=== PATIENT | female | born 1995 | race Two or more races ===

== ENCOUNTER 2018-06-11 02:41 | Inpatient (IN) | payer OTHER ==
[2018-06-11] MEDS ORDERED: DEXTROSE 5%-LACTATED RINGERS 1,000 ML IV SCH (03:20)
[2018-06-11] MEDS: DEXTROSE 5%-LACTATED RINGERS 1,000 ML IV SCH ×2 (03:30→09:17)
[2018-06-11 04:14] LABS: BASO % 0.2 % (0-2.0); EOS % 1.5 % (0-4.5); HEMATOCRIT 37.8 % (32.4-45.2); HEMOGLOBIN 12.9 GM/dL (10.7-15.3); LYMPH % 14.1 % (8-40); MCH 27.9 pg (25.7-33.7); MONO % 7.9 % (3.8-10.2); NEUT % 76.3 % (42.8-82.8); RBC 4.61 M/mm3 (3.60-5.2); RDW 15.4 % (11.6-15.6); WHITE BLOOD COUNT 9.7 K/mm3 (4.0-10.0)
[2018-06-11 04:26] LABS: INR 0.98 (0.83-1.09); PROTHROMBIN TIME (PATIENT) 11.6 SEC (9.7-13.0)
[2018-06-11 04:29] LABS: ACTIVATED PTT 27.5 SECONDS (25.2-36.5)
[2018-06-11 04:39] LABS: ANION GAP 7 MMOL/L (8-16); BLOOD UREA NITROGEN 7 mg/dL (7-18); CALCIUM 8.5 mg/dL (8.5-10.1); CHLORIDE 109 mmol/L (98-107); CO2 23 mmol/L (21-32); CREATININE 0.5 mg/dL (0.55-1.3); GLUCOSE,RANDOM 69 mg/dL (74-106); POTASSIUM 4.1 mmol/L (3.5-5.1); SODIUM 140 mmol/L (136-145)
--- NOTE | 2018-06-11 05:31 | HP ---
Past Medical History - Primary Care Physician PCP:: Violet Prince - Admission Chief Complaint: 22 yrs 39.6/7 wks admitted due to c/o bleeding like period at home & onset LP at 2.00 AM. pt was assessed for labor on 06/09/18 sent home History of Present Illness: pnc at , carrier clinic care transferred from [facility] wt gain 43 lbs panel : 10/22/17 APos, Hbsag neg, Rubella immune, rpr nr, Hiv neg, Hgb , pap nilm , gc/ct neg PPD neg, h/h 12.3/37.4, plt 231 h/o BV pos , treated with vaginal cream ( ? metrogel gel ) 02/26/18 1 hr gtt 137. Early sono 10/29/17 7.4 wks Edc assigned 06/13/18 subsequent sono 01/14/18 18.5 wks 01/28/18 20.6 wks, ant placenta, anatomy sono wnl pt was seen by MFM at [facility] twice . last sono done on 05/15/2018 05/15/18 36 weeks cutures gc/ct neg GBS neg , Hiv neg h/h 11.5/39.2. 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 Weeks Gestation by Dates: 39.4 ...EDC by Dates: 06/15/18 ...EDC by Sono: 06/13/18 (39.6 weks ) Infectious Disease: Yes: STD's (h/o chlamydia 2014). No: AIDS, HIV, Tuberculosis Psych: No: Addictions, Anxiety, Bipolar, Depression, Panic, Psychosis, Schizophrenia, Other Endocrine: No: Diabetes Mellitus, Hyperthyroidism, Hypothyroidism - Past Surgical History Past Surgical History: Yes: None Hx Myomectomy: No Hx Transabdominal Cerclage: No - Alcohol/Substance Use Hx Alcohol Use: No History of Substance Use: reports: None Home Medications - Allergies Allergies/Adverse Reactions: Allergies Allergy/AdvReac Type Severity Reaction Status Date / Time No Known Allergies Allergy Verified 06/09/18 08:37 - Home Medications Home Medications: Ambulatory Orders Ferrous Sulfate [Iron] 325 mg PO DAILY 05/02/18 Vitamins (Sjr) - 1 tab PO DAILY 05/02/18 Physical Exam - Maternity Vital Signs: Vital Signs Temperature 97.6 F 06/11/18 04:00 Pulse Rate 68 06/11/18 04:00 Respiratory Rate 20 06/11/18 04:00 Blood Pressure 139/77 06/11/18 04:00 O2 Sat by Pulse Oximetry (%) Constitutional: Yes: Well Nourished, Obese Eyes: Yes: WNL HENT: Yes: WNL, Normocephalic Neck: Yes: WNL Cardiovascular: Yes: WNL, Regular Rate and Rhythm Breast(s): Yes: WNL - Abdominal Exam/OB Fundal Height: 40 Number of Fetuses: Single Presentation: Vertex Contractions: Yes Regularity: Irregular (6-7 min) Intensity: Mild/Mod Monitor Mode: External Heart Rate (range): 130 Heart Rate Location: [facility] Category: I Accelerations: Uniform Decelerations: None - Vaginal Exam/OB Vaginal Bleediing: Bloody Show Dilatation (cm): FT Effacement (%): 60 Amniotic Membrane Status: Intact Presentation: Vertex/Position Station: -3 - Physical Exam Musculoskeletal: Yes: WNL Extremities: Yes: WNL. No: Calf Tenderness Edema: LLE: 1+, RLE: 1+ Integumentary: Yes: Tattoos Deep Tendon Reflex Grade: Normal +2 ...Motor Strength: WNL Psychiatric: Yes: WNL, Alert, Oriented - Labs Lab Results: CBC, BMP 06/11/18 04:00 Plt count 99 06/11/18 04:00 Laboratory Tests 06/11/18 06/11/18 06/11/18 04:00 04:00 04:00 Platelet Estimate Adequate Platelet Comment No clumping noted Retic Count PT with INR 11.60 INR 0.98 PTT (Actin FS) 27.5 Uric Acid GGT AST ALT Blood Type A POSITIVE Antibody Screen Negative 06/11/18 06/11/18 06/11/18 06:54 06:54 07:09 Platelet Estimate Platelet Comment Retic Count 1.33 PT with INR INR PTT (Actin FS) Uric Acid 6.9 GGT 24 AST 21 ALT 14 Blood Type A POSITIVE Antibody Screen Problem List - Problems (1) 39 weeks gestation of Code(s): Z3A.39 - 39 WEEKS GESTATION OF (2) Prolonged latent phase of labor Code(s): O62.0 - PRIMARY INADEQUATE CONTRACTIONS (3) Gestational thrombocytopenia without hemorrhage in third trimester Code(s): O99.113 - OTH DIS OF BLD/BLD-FORM ORG/IMMUN MECHNSM COMP PREG, 3RD TRI ; D69.6 - THROMBOCYTOPENIA, UNSPECIFIED Assessment/Plan 22 yrs , 39.6 weeks in early labor , presented with bleeding , hence admitted early . gbs neg , gestational thrombocytopenia Plan may ambulate will do HEELP Work Up pitocin augmentation prn trial vaginal delivery 800AM HELLP work up is negative except LOW Plt count uc are irregular, FHR cat-1 i handed over the labor management of the patient to supervisor electronics testing Dr Carreno
[2018-06-11 05:32] VITALS: BMI 30.6
[2018-06-11 07:09] LABS: MEAN PLT VOLUME 12.3 fl (7.5-11.1); PLATELET ESTIMATE ADEQUATE
[2018-06-11 07:11] LABS: PLATELET COUNT 96 K/MM3 (134-434)
[2018-06-11 07:45] LABS: RETICULOCYTES 1.33 % (0.5-1.5)
[2018-06-11 07:50] LABS: URIC ACID 6.9 mg/dL (2.6-7.2)
[2018-06-11] MEDS ORDERED: DINOPROSTONE 10 MG VAGINAL SUPPOSITORY VG ONE (10:37)
[2018-06-11] MEDS ORDERED: BUTORPHANOL TARTRATE 2 MG/ML VIAL IVPUSH PRN (10:40)
--- NOTE | 2018-06-11 10:40 | PN ---
Progress Note (short form) - Note Progress Note: Patient with Thrombocytopenia admitted for vaginal bleeding. Upon admission she was 1cm dilated and 80% effaced. Cervidil was placed at 8:05am Reevaluate in 12 hours or before if indicated.
[2018-06-11] MEDS ORDERED: PROMETHAZINE HCL 25 MG/1 ML VIAL IVPUSH PRN (10:41)
[2018-06-11] MEDS ORDERED: BUTORPHANOL TARTRATE 1 MG/ML VIAL ONE ×2 (11:40)
[2018-06-11] MEDS ORDERED: PROMETHAZINE HCL 25 MG/1 ML VIAL ONE (11:40)
--- NOTE | 2018-06-11 13:26 | PN ---
Progress Note (short form) - Note Progress Note: Status post stadol. Coople episode of decelerations after stadol. Cervidil removed. Few minutes later membrane was ruptured and internal monitor was placed. VE : /-1 Continue close monitoring
[2018-06-11] MEDS ORDERED: OXYTOCIN 30 UNITS in 0.9% NS 30 UNIT/500 ML INFUS.BAG IVPB SCH (14:45)
[2018-06-11 15:33] LABS: URINE APPEARANCE CLEAR; URINE BILIRUBIN NEGATIVE (<2.0 mg/dL); URINE COLOR LTYELLOW; URINE GLUCOSE (UA) NEGATIVE (NEGATIVE); URINE KETONE NEGATIVE (NEGATIVE); URINE LEUK ESTERASE NEGATIVE (NEGATIVE); URINE NITRITE NEGATIVE (NEGATIVE); URINE PROTEIN NEGATIVE (NEGATIVE); URINE UROBILINOGEN NEGATIVE mg/dL (0.2-1.0)
[2018-06-11] MEDS ORDERED: ELECTROLYTE-148 SOLN 1,000 ML IV SCH (15:45)
--- NOTE | 2018-06-11 16:14 | PN ---
Progress Note, Labor Vaginal Exam #3 Heart Rate (range): Cat I Dilatation: 4 Effacement (%): 100 Amniotic Membrane Status: Ruptured Presentation: Vertex/Position Station: -1 Remarks: No cervical knife changer two hours. Cervix is swollen. On pitocin for over 1 hour now Will reassess in 2 hours, if no significant change, will discuss option of C/S Moon Hung MD
[2018-06-11] MEDS ORDERED: CITRIC ACID/SODIUM CITRATE 30 ML UNIT-DOSE CUP PO ONE (16:42)
--- NOTE | 2018-06-11 16:53 | PN ---
Progress Note, Labor Vaginal Exam #4 Labor Exam Time: 16:44 Heart Rate (range): Cat I Dilatation: 4 Effacement (%): 100 Amniotic Membrane Status: Ruptured Presentation: Vertex/Position Station: -1 Remarks: Patient screaming out in pain. States she wants a and does not want to continue with labor secondary to pain. Had planned to do this delivery without pain medications. Has received stadol for relief. Cervix re-examined. Continued cervical swelling noted with caput. Pt requesting for delivery. Risk of procedure including bleeding, infection and injury to bladder/ bowel/tubes/ovaries discussed. Given the cervical exam, low suspicion that even with epidural anesthesia that there will be much progression given the cervical swelling and caput. Moon Hung MD
[2018-06-11] MEDS ORDERED: morphine SULFATE/Preservative Free 0.5 MG/ML (1cc Syringe) ONE (17:14)
[2018-06-11] MEDS ORDERED: ceFAZolin SODIUM 1 GM VIAL ONE (17:14)
[2018-06-11] MEDS ORDERED: morphine SULFATE/Preservative Free 0.5 MG/ML (1cc Syringe) SPIN ONE (17:25)
[2018-06-11] MEDS ORDERED: OXYTOCIN 10 UNITS/ML VIAL ONE (17:34)
[2018-06-11] MEDS ORDERED: ACETAMINOPHEN 325 MG TABLET (FP) PO PRN ×2 (18:03→18:12)
[2018-06-11] MEDS ORDERED: IBUPROFEN 600 MG TABLET (FP) PO PRN (18:03)
[2018-06-11] MEDS ORDERED: ONDANSETRON 4 MG/2 ML VIAL IVPUSH PRN (18:03)
[2018-06-11] MEDS ORDERED: METHYLERGONOVINE MALEATE 0.2 MG/1 ML AMP IM PRN (18:12)
[2018-06-11] MEDS ORDERED: SENNOSIDES/DOCUSATE COMBO (SENNA PLUS) TABLET (UD) PO PRN (18:12)
[2018-06-11] MEDS ORDERED: IBUPROFEN 800 MG/8 ML IJ IVPB PRN (18:12)
--- NOTE | 2018-06-11 18:15 | OP ---
Operative Note - Note: Operative Date: 06/11/18 Pre-Operative Diagnosis: Arrest of First Stage of Labor Operation: PLTCS Findings: VMI, GEORGI, no nuchal or meconium. Apgars 9/9. Weight pending. Normal tubes and ovaries Post-Operative Diagnosis: Same as Pre-op Surgeon: Rebecca Hung Insulation Installer: Joselito Muñoz Anesthesia: Spinal Estimated Blood Loss (mls): 500 Operative Report Dictated: Yes
--- NOTE | 2018-06-11 18:58 | OP ---
DATE OF OPERATION: 06/11/2018 PREOPERATIVE DIAGNOSIS: A 39-week , arrest of first stage of labor. POSTOPERATIVE DIAGNOSIS: A 39-week , arrest of first stage of labor. PROCEDURE: Primary low transverse section. ANESTHESIA: Spinal. SURGEON: Rebecca Hung M.D. EMAIL MARKETING EXECUTIVE: Gilmer Elias ESTIMATED BLOOD LOSS: 500. INTRAVENOUS FLUIDS: Per anesthesia records. URINE OUTPUT: 400 mL of clear urine at the end of the procedure. FINDINGS: Viable male , GEORGI position, no nuchal, no meconium, Apgars 9 and 9, weight pending, normal tubes and ovaries bilaterally. COMPLICATIONS: None. CONDITION: Stable to recovery. DESCRIPTION OF PROCEDURE: After the appropriate consents were signed, the patient was taken to the operating room where spinal anesthesia was administered. She was placed in the supine position. Atkinson catheter was inserted into the bladder. The abdomen was prepped and draped in the normal sterile fashion. Timeout was performed confirming correct patient and procedure. A Pfannenstiel skin incision was then made in the skin, carried through to the underlying layer until the fascia was nicked in the midline. Fascia was then extended laterally with the Bailon scissors. The inferior aspect of the fascia was grasped with Reza clamps, tented upwards, and the rectus muscles dissected off bluntly with the Bailon scissors. Attention was then paid to the superior aspect which was taken down in a similar fashion. The rectus muscles were in the midline. The peritoneum was entered bluntly. Bladder blade was inserted. The vesiculo uterine serosal reflection was grasped, nicked in the midline, and extended laterally with the Metzenbaum scissors. A bladder flap was then created digitally. The bladder blade was then reinserted. The uterus was then incised in a low transverse fashion with the scalpel, clear amniotic fluid was noted. 's head was delivered without difficulty as were the shoulders and remaining parts. The cord was clamped and cut, the infant was handed off to the waiting pediatric staff. The placenta was then delivered manually. The uterus was cleared of all clot and debris. The uterus was closed with a 1-0 Vicryl in 2 layers with good hemostasis. Gutters were cleared of all clot and debris. The muscle was reapproximated with 2-0 chromic. The fascia was closed with 0 Vicryl. Skin was closed with 3-0 Vicryl. Sponge , lap, needle count was correct x3. Patient did receive Ancef at the start of the procedure. REBECCA HUNG MD [id number] MTDD
[2018-06-11] MEDS ORDERED: IBUPROFEN 800 MG/8 ML IJ IVPB ONE (19:41)
[2018-06-11] MEDS: OXYTOCIN 20 UNITS in 0.9% NS 20 UNIT/1,000 ML INFUS.BAG IV SCH (22:00)
[2018-06-12] MEDS: OXYTOCIN 20 UNITS in 0.9% NS 20 UNIT/1,000 ML INFUS.BAG IV SCH ×2 (05:51→14:00)
--- NOTE | 2018-06-12 06:11 | PN ---
Post Progress Note - Subjective Subjective: Pain controlled with meds. No N/V. Has been Type of Delivery: Primary C/S Vital Signs: Vital Signs Temperature 100.0 F H 06/12/18 05:15 Pulse Rate 89 06/12/18 05:15 Respiratory Rate 18 06/12/18 05:56 Blood Pressure 123/69 06/12/18 05:15 O2 Sat by Pulse Oximetry (%) 100 06/11/18 18:45 Uterus: Yes: Fundus Firm, Fundus below umbilicus Incision: Yes: Dressing dry and intact Abdomen/GI: Yes: Abdomen soft Lochia: Yes: Rubra Lochia, amount: Small Extremities: Yes: Calves non-tender - Labs Labs: CBC WBC 9.7 K/mm3 (4.0-10.0) 06/11/18 04:00 RBC 4.61 M/mm3 (3.60-5.2) 06/11/18 04:00 Hgb 12.9 GM/dL (10.7-15.3) 06/11/18 04:00 Hct 37.8 % (32.4-45.2) 06/11/18 04:00 MCV 82.0 fl (80-96) 06/11/18 04:00 MCH 27.9 pg (25.7-33.7) 06/11/18 04:00 MCHC 34.0 g/dl (32.0-36.0) 06/11/18 04:00 RDW 15.4 % (11.6-15.6) 06/11/18 04:00 Plt Count 99 K/MM3 (134-434) L 06/11/18 06:54 MPV 12.3 fl (7.5-11.1) H 06/11/18 04:00 Absolute Neuts (auto) 7.4 K/mm3 (1.5-8.0) 06/11/18 04:00 Neutrophils % 76.3 % (42.8-82.8) 06/11/18 04:00 Lymphocytes % 14.1 % (8-40) 06/11/18 04:00 Monocytes % 7.9 % (3.8-10.2) 06/11/18 04:00 Eosinophils % 1.5 % (0-4.5) 06/11/18 04:00 Basophils % 0.2 % (0-2.0) 06/11/18 04:00 Nucleated RBC % 0 % (0-0) 06/11/18 04:00 Platelet Estimate Adequate 06/11/18 04:00 Platelet Comment No clumping noted 06/11/18 04:00 Retic Count 1.33 % (0.5-1.5) 06/11/18 06:54 Haptoglobin 109 mg/dL (34-200) 06/11/18 07:09 Problem List - Problems (1) S/P Code(s): Z98.891 - HISTORY OF UTERINE SCAR FROM PREVIOUS SURGERY Assessment/Plan 22yo s/p PLTCS, POD#1 Routine care F/U AM labs OOB, ambulate D/C rosa Anticipate d/c to home by POD#4 Moon Hung MD
[2018-06-12 08:24] LABS: BASO % 0.3 % (0-2.0); EOS % 0.1 % (0-4.5); HEMATOCRIT 32.1 % (32.4-45.2); HEMOGLOBIN 10.9 GM/dL (10.7-15.3); LYMPH % 9.2 % (8-40); MCH 27.5 pg (25.7-33.7); MCHC 33.8 g/dl (32.0-36.0); MEAN CELL VOLUME 81.5 fl (80-96); MEAN PLT VOLUME 11.1 fl (7.5-11.1); MONO % 6.7 % (3.8-10.2); NEUT % 83.7 % (42.8-82.8); PLATELET COUNT 88 K/MM3 (134-434); RBC 3.94 M/mm3 (3.60-5.2); RDW 15.5 % (11.6-15.6); WHITE BLOOD COUNT 13.4 K/mm3 (4.0-10.0)
--- NOTE | 2018-06-12 08:32 | PN ---
Progress Note (short form) - Note Progress Note: Post op day#1.S/P C Section under spinal anesthesia with duramorph uneventful.Patient stable and c/o smoe pain for which she is on medication.No any anesthesia related problem.Patient DC from the anesthesia care.
[2018-06-12] MEDS: PRENATAL VITAMINS W/ FOLIC ACID TABLET (FP) PO SCH (10:07)
[2018-06-12] MEDS: oxyCODONE HCL 5 MG TABLET PO PRN (12:17)
[2018-06-12] MEDS: IBUPROFEN 600 MG TABLET (FP) PO PRN (12:18)
[2018-06-12] MEDS: SIMETHICONE 80 MG TAB.CHEW (FP) PO PRN (12:19)
[2018-06-12] MEDS ORDERED: OXYTOCIN 20 UNITS in 0.9% NS 20 UNIT/1,000 ML INFUS.BAG IV ONE (13:52)
[2018-06-12] MEDS ORDERED: BISACODYL 10 MG SUPP.RECT RC PRN (18:12)
[2018-06-13] MEDS: oxyCODONE HCL 5 MG TABLET PO PRN ×2 (03:50→16:15)
[2018-06-13] MEDS: SIMETHICONE 80 MG TAB.CHEW (FP) PO PRN ×2 (03:51→16:17)
[2018-06-13] MEDS: IBUPROFEN 600 MG TABLET (FP) PO PRN ×2 (03:51→16:16)
--- NOTE | 2018-06-13 07:44 | PN ---
Progress Note (short form) - Note Progress Note: pod 2 doing wel, has mild cramps CBC, BMP 06/12/18 07:30 06/11/18 04:00 Last Vital Signs Temp Pulse Resp BP Pulse Ox 98.2 F 71 20 136/80 100 06/13/18 06:00 06/12/18 21:00 06/12/18 21:00 06/12/18 21:00 06/11/18 18:45 abdomen soft, no distension , no cva incision dry, clean no calf tenderness plan ambulate , cbc in am
[2018-06-13] MEDS ORDERED: FLU VACCINE QUAD 60 MCG/0.5 ML (MDV 18-19) IM ONE (10:00)
[2018-06-13] MEDS ORDERED: DIPHTH,PERTUSS(ACELL),TET 0.5 ML DISP.SYRIN IM ONE (10:00)
[2018-06-13] MEDS: PRENATAL VITAMINS W/ FOLIC ACID TABLET (FP) PO SCH (10:09)
[2018-06-14] MEDS: IBUPROFEN 600 MG TABLET (FP) PO PRN (05:52)
[2018-06-14] MEDS: oxyCODONE HCL 5 MG TABLET PO PRN (05:52)
--- NOTE | 2018-06-14 08:22 | PN ---
Post Progress Note Type of Delivery: Primary C/S Vital Signs: Vital Signs Temperature 97.6 F 06/13/18 21:44 Pulse Rate 74 06/13/18 21:44 Respiratory Rate 18 06/13/18 21:44 Blood Pressure 130/85 06/13/18 21:44 O2 Sat by Pulse Oximetry (%) 100 06/11/18 18:45 Uterus: Yes: Fundus above umbilicus Incision: Yes: Dressing dry and intact Abdomen/GI: Yes: Abdomen soft, Tolerating PO Lochia: Yes: Rubra Lochia, amount: Small Extremities: Yes: Calves non-tender Activity: Ambulating - Labs Labs: CBC WBC 13.4 K/mm3 (4.0-10.0) H 06/12/18 07:30 RBC 3.94 M/mm3 (3.60-5.2) 06/12/18 07:30 Hgb 10.9 GM/dL (10.7-15.3) 06/12/18 07:30 Hct 32.1 % (32.4-45.2) L D 06/12/18 07:30 MCV 81.5 fl (80-96) 06/12/18 07:30 MCH 27.5 pg (25.7-33.7) 06/12/18 07:30 MCHC 33.8 g/dl (32.0-36.0) 06/12/18 07:30 RDW 15.5 % (11.6-15.6) 06/12/18 07:30 Plt Count 88 K/MM3 (134-434) L 06/12/18 07:30 MPV 11.1 fl (7.5-11.1) 06/12/18 07:30 Absolute Neuts (auto) 11.2 K/mm3 (1.5-8.0) H 06/12/18 07:30 Neutrophils % 83.7 % (42.8-82.8) H 06/12/18 07:30 Lymphocytes % 9.2 % (8-40) D 06/12/18 07:30 Monocytes % 6.7 % (3.8-10.2) 06/12/18 07:30 Eosinophils % 0.1 % (0-4.5) D 06/12/18 07:30 Basophils % 0.3 % (0-2.0) 06/12/18 07:30 Nucleated RBC % 0 % (0-0) 06/12/18 07:30 Platelet Estimate Adequate 06/11/18 04:00 Platelet Comment No clumping noted 06/11/18 04:00 Retic Count 1.33 % (0.5-1.5) 06/11/18 06:54 Haptoglobin 109 mg/dL (34-200) 06/11/18 07:09 Problem List - Problems (1) S/P Code(s): Z98.891 - HISTORY OF UTERINE SCAR FROM PREVIOUS SURGERY Assessment/Plan 22yo s/p PLTCS, POD#3 Routine care Labs reviewed OOB, ambulate Anticipate d/c to home by POD#4 Moon Hung MD
--- NOTE | 2018-06-14 09:22 | DS ---
Physical Examination Vital Signs: Vital Signs Temperature 97.6 F 06/13/18 21:44 Pulse Rate 74 06/13/18 21:44 Respiratory Rate 18 06/13/18 21:44 Blood Pressure 130/85 06/13/18 21:44 O2 Sat by Pulse Oximetry (%) 100 06/11/18 18:45 Constitutional: Yes: Well Nourished, No Distress, Calm Eyes: Yes: WNL, Conjunctiva Clear, EOM Intact HENT: Yes: WNL, Atraumatic, Normocephalic Neck: Yes: WNL, Supple, Trachea Midline Cardiovascular: Yes: WNL, Regular Rate and Rhythm Respiratory: Yes: WNL, Regular, CTA Bilaterally Gastrointestinal: Yes: WNL, Normal Bowel Sounds Musculoskeletal: Yes: WNL Extremities: Yes: WNL Edema: No Integumentary: Yes: WNL Neurological: Yes: WNL, Alert, Oriented ...Motor Strength: WNL Psychiatric: Yes: WNL Labs: CBC, BMP 06/12/18 07:30 06/11/18 04:00 Discharge Summary Reason For Visit: LABOR Current Active Problems 39 weeks gestation of (Acute) Gestational thrombocytopenia without hemorrhage in third trimester (Acute) Prolonged latent phase of labor (Acute) S/P (Acute) Procedures: Principal: PLTCS Hospital Course: Patient presented with vaginal bleeding and was subsequently induced The heart tracing had abnormal changes with cervidil administration and it was discontinued With AROM and pitocin she only progressed to 4cm with caput. She underwent PLTCS She met all milestones She was discharged home in stable condition on POD#3 Rebecca Hung MD Condition: Stable - Instructions Diet, Activity, Other Instructions: Regular Diet Referrals: Rebecca Hung MD [Staff Physician] - Disposition: HOME - Home Medications Comprehensive Discharge Medication List: Ambulatory Orders Ferrous Sulfate [Iron] 325 mg PO DAILY 05/02/18 Vitamins (Sjr) - 1 tab PO DAILY 05/02/18
[2018-06-14] MEDS: PRENATAL VITAMINS W/ FOLIC ACID TABLET (FP) PO SCH (09:26)
[2018-06-14 10:22] LABS: BASO % 0.3 % (0-2.0); EOS % 1.3 % (0-4.5); HEMATOCRIT 34.2 % (32.4-45.2); HEMOGLOBIN 11.4 GM/dL (10.7-15.3); LYMPH % 9.5 % (8-40); MCH 27.5 pg (25.7-33.7); MCHC 33.4 g/dl (32.0-36.0); MEAN CELL VOLUME 82.5 fl (80-96); MEAN PLT VOLUME 10.2 fl (7.5-11.1); NEUT % 83.9 % (42.8-82.8); PLATELET COUNT 113 K/MM3 (134-434); RBC 4.14 M/mm3 (3.60-5.2); RDW 15.4 % (11.6-15.6); WHITE BLOOD COUNT 9.9 K/mm3 (4.0-10.0)
[2018-06-14 11:10] VITALS: BP 139/84; PULSE 84; TEMP 98.1
--- NOTE | 2018-06-23 16:08 | PATH ---
Surgical Pathology Report Patient Name: BETY VALDOVINOS [facility]. Rec. #: [id number] /Age/Gender: 1995 (Age: 22) / F Account: [id number] Location: [facility] OBS/CONSTRUCTION DIRECTOR Taken: 06/11/2018 Received: 06/12/2018 Reported: 06/23/2018 Physicians: Rebecca Carreno M.D. Specimen(s) Received PLACENTA Clinical History Final Diagnosis PLACENTA, SECTION: 468 G THIRD TRIMESTER PLACENTA WITH TRIVASCULAR UMBILICAL CORD AND MILD ACUTE CHORIOAMNIONITIS. Electronically Signed Nori Zapien M.D. Gross Description The specimen is received fresh labeled placenta and is a 468 gram, 16.5 x 14.5 x 3.2 cm. placenta with attached membranes and umbilical cord. The attached membranes are watts, translucent with focal opacities and insert marginally. The umbilical cord measures 41 cm. in length and averages 1.3 cm. in diameter. The cord inserts eccentrically, 4.5 cm. to the nearest margin. No true knots or strictures are identified. Cut surface of the umbilical cord reveals 3 vessels. The surface is garay-blue with minimal fibrin deposition and appropriate caliber vessels. The maternal surface is red-brown with focal defects. Sectioning reveals red-brown, spongy parenchyma. No lesions are identified. City Manager sections are submitted in three cassettes as follows: 1- membrane rolls and umbilical cord; 2-3- full thickness sections of placenta. 06/20/2018 [facility]06/20/2018
== END 2018-06-14 15:30 | disposition home or self-care (01) | DRG 540 ==
LOC: JDEL 02:41 → JLDR 03:20 → J3W 20:06
PROVIDERS: ADMIT Obstetrics & Gynecology; ATTEND Obstetrics & Gynecology
PROC: 10D00Z1 Extraction of Products of Conception, Low, Open Approach (ICD-10-PCS; principal; 2018-06-11)
DX: O62.1 Secondary uterine inertia (principal); O99.12 Other diseases of the blood and blood-forming organs and certain disorders involving the immune mechanism complicating childbirth; D69.6 Thrombocytopenia, unspecified; Z3A.39 39 weeks gestation of pregnancy; Z37.0 Single live birth; O62.0 Primary inadequate contractions
CPT/HCPCS: 36415; 80048; 81003; 82977; 83010; 84450; 84460; 84550; 85025; 85032; 85044; 85610; 85730; 86593; 86850; 86900; 86901; 88307-TC; 90686; 90715; G0008

== ENCOUNTER 2019-04-22 11:49 | Emergency (ER) | payer OTHER ==
[2019-04-22 12:00] VITALS: BP 116/48; PULSE 78; TEMP 97.9; BMI 23.0
[2019-04-22 13:58] LABS: PH,URINE 6.5 (5.0-8.0); URINE APPEARANCE CLEAR; URINE BILIRUBIN NEGATIVE (NEGATIVE); URINE COLOR YELLOW; URINE GLUCOSE (UA) NEGATIVE (NEGATIVE); URINE KETONE 2+ (NEGATIVE); URINE LEUK ESTERASE NEGATIVE (NEGATIVE); URINE NITRITE NEGATIVE (NEGATIVE); URINE PROTEIN NEGATIVE (NEGATIVE)
--- NOTE | 2019-04-22 14:20 | PDOC ---
History of Present Illness - General Chief Complaint: Pain Stated Complaint: PAIN Time Seen by Provider: 04/22/19 12:31 History Source: Patient Exam Limitations: No Limitations Past History - Travel Traveled outside of the country in the last 30 days: No Close contact w/someone who was outside of country & ill: No - Past Medical History Allergies/Adverse Reactions: Allergies Allergy/AdvReac Type Severity Reaction Status Date / Time No Known Allergies Allergy Verified 06/09/18 08:37 Home Medications: Ambulatory Orders Ferrous Sulfate [Iron] 325 mg PO DAILY 05/02/18 Vitamins (Sjr) - 1 tab PO DAILY 05/02/18 Ibuprofen 600 mg PO Q6H PRN #30 tablet 06/14/18 Oxycodone HCl/Acetaminophen [Percocet 5-325 mg Tablet -] 1 - 2 tab PO Q6H PRN # 15 tab MDD 4 06/14/18 Asthma: No Cancer: No Cardiac Disorders: No COPD: No Diabetes: No HTN: No Seizures: No Thyroid Disease: No - Immunization History Immunization Up to Date: Yes - Psycho Social/Smoking Cessation Hx Smoking History: Never smoked Have you smoked in the past 12 months: No Information on smoking cessation initiated: No Hx Alcohol Use: No Drug/Substance Use Hx: No Hx Substance Use Treatment: No Review of Systems - Review of Systems Able to Perform ROS?: Yes Comments:: 04/22/19 14:16 CONSTITUTIONAL: Absent: fever, chills, diaphoresis, generalized weakness, malaise, loss of appetite HEENT: Absent: rhinorrhea, nasal congestion, throat pain, throat swelling, difficulty swallowing, mouth swelling, ear pain, eye pain, visual Changes CARDIOVASCULAR: Absent: chest pain, loss of consciousness, palpitations, irregular heart rate, peripheral edema RESPIRATORY: Absent: cough, shortness of breath, dyspnea with exertion, orthopnea, wheezing, stridor, hemoptysis GASTROINTESTINAL: Present: Lower abdominal pain absent: abdominal distension, nausea, vomiting, diarrhea, constipation, melena, hematochezia GENITOURINARY: Present: Spotting absent: dysuria, frequency, urgency, hesitancy, hematuria, flank pain, genital pain MUSCULOSKELETAL: Absent: myalgia, arthralgia, joint swelling SKIN: Absent: rash, itching, pallor HEMATOLOGIC/IMMUNOLOGIC: Absent: easy bleeding, easy bruising, lymphadenopathy, frequent infections ENDOCRINE: Absent: unexplained weight gain, unexplained weight loss, heat intolerance, cold intolerance NEUROLOGIC: Absent: headache, focal weakness or paresthesias, dizziness, unsteady gait, seizure, mental status changes, bladder or bowel incontinence PSYCHIATRIC: Absent: anxiety, depression, suicidal or homicidal ideation, hallucinations. Is the patient limited Welsh proficient: No *Physical Exam - Vital Signs Last Vital Signs Temp Pulse Resp BP Pulse Ox 97.9 F 78 17 116/48 L 100 04/22/19 11:56 04/22/19 11:56 04/22/19 11:56 04/22/19 11:56 04/22/19 11:56 - Physical Exam 04/22/19 14:17 GENERAL: Well developed, well nourished. Awake and alert. No acute distress. HEENT: Normocephalic, atraumatic. PERRLA, EOMI. No conjunctival pallor. Sclera are non- icteric. Moist mucous membranes. Oropharynx is clear. NECK: Supple. Full ROM. No JVD. Carotid pulses 2+ and symmetric, without bruits. No thyromegaly. No lymphadenopathy. ABDOMINAL: Well-healed scar, no keloid or secondary signs of infection noted. Tenderness to the left adnexal area on palpation. Soft. Non-distended. No rebound or guarding. No organomegaly. Normoactive bowel sounds. MUSCULOSKELETAL Normal range of motion at all joints. No bony deformities or tenderness. No CVA tenderness. EXTREMITIES: No cyanosis. No clubbing. No edema. No calf tenderness. SKIN: Warm and dry. Normal capillary refill. No rashes. No jaundice. NEUROLOGICAL: Alert, awake, appropriate. Cranial nerves 2-12 intact. No deficits to light touch and temperature in face, upper extremities and lower extremities. No motor deficits in the in face, upper extremities and lower extremities. Normoreflexic in the upper and lower extremities. Normal speech. Toes are down- going bilaterally. Gait is normal without ataxia. PSYCHIATRIC: Cooperative. Good eye contact. Appropriate mood and affect. ED Treatment Course - ADDITIONAL ORDERS Additional order review: Laboratory Results 04/22/19 04/22/19 13:30 13:30 Urine Color Yellow Urine Appearance Clear Urine pH 6.5 Ur Specific [place] 1.015 Urine Protein Negative Urine Glucose (UA) Negative Urine Ketones 2+ H Urine Blood Negative Urine Nitrite Negative Urine Bilirubin Negative Urine Urobilinogen 1.0 Ur Leukocyte Esterase Negative Urine HCG, Qual Positive - RADIOLOGY Radiology Studies Ordered: Category Date Time Status KUB (KID UR & BLAD) [RAD] Stat Radiology 04/22/19 13:24 Ordered TRANSVAGINAL US PREG [US] Stat Ultrasound 04/22/19 14:03 Ordered Medical Decision Making - Medical Decision Making 04/22/19 14:17 The patient is a 23-year-old female G2, P1 who presents to the ER today for vaginal spotting. She also states she has pain over her scar for the past three weeks. She states her last menstrual cycle was 03/22/2019. She is unsure if she is at this time. She notes that the pain is worse when she sneezes or coughs. She states that the vaginal spotting has been light and she notes that the the blood is bright red. Denies fevers, chills, nausea, vomiting, diarrhea and urinary symptoms. A/P: Lower abdominal pain On exam there is a well-healed scar with no evidence of secondary infection. Tenderness palpation of the left aspect of the scar in the left adnexal region. Urine is positive. Patient defers pelvic exam as she is also getting a ultrasound she does not want to be examined twice. Patient transferred to [facility] for rule out ectopic given bleeding and . Type and screen, CBC, and transvaginal ultrasound ordered. Signout given to ABDIRIZAK Chu and Charge nurse Michelle Discharge - Discharge Information Problems reviewed: Yes Clinical Impression/Diagnosis: Vaginal bleeding affecting early - Follow up/Referral - Patient Discharge Instructions - Post Discharge Activity
[2019-04-22 15:35] LABS: BASO % 0.3 % (0-2.0); EOS % 1.4 % (0-4.5); HEMATOCRIT 38.1 % (32.4-45.2); HEMOGLOBIN 12.8 GM/dL (10.7-15.3); LYMPH % 17.5 % (8-40); MCH 27.7 pg (25.7-33.7); MCHC 33.7 g/dl (32.0-36.0); MEAN CELL VOLUME 82.2 fl (80-96); MEAN PLT VOLUME 9.7 fl (7.5-11.1); MONO % 5.6 % (3.8-10.2); NEUT % 75.2 % (42.8-82.8); PLATELET COUNT 242 K/MM3 (134-434); RBC 4.64 M/mm3 (3.60-5.2); RDW 13.9 % (11.6-15.6); WHITE BLOOD COUNT 10.9 K/mm3 (4.0-10.0)
--- NOTE | 2019-04-22 16:34 | PDOC ---
*Physical Exam - Vital Signs Last Vital Signs Temp Pulse Resp BP Pulse Ox 97.9 F 78 17 116/48 L 100 04/22/19 11:56 04/22/19 11:56 04/22/19 11:56 04/22/19 11:56 04/22/19 11:56 ED Treatment Course - LABORATORY CBC & Chemistry Diagram: 04/22/19 15:10 - ADDITIONAL ORDERS Additional order review: Laboratory Results 04/22/19 04/22/19 04/22/19 15:10 13:30 13:30 Beta HCG, Quant 7823.8 Urine Color Yellow Urine Appearance Clear Urine pH 6.5 Ur Specific [place] 1.015 Urine Protein Negative Urine Glucose (UA) Negative Urine Ketones 2+ H Urine Blood Negative Urine Nitrite Negative Urine Bilirubin Negative Urine Urobilinogen 1.0 Ur Leukocyte Esterase Negative Urine HCG, Qual Positive 04/22/19 15:10 RBC 4.64 MCV 82.2 MCHC 33.7 RDW 13.9 MPV 9.7 Neutrophils % 75.2 Lymphocytes % 17.5 D Monocytes % 5.6 Eosinophils % 1.4 Basophils % 0.3 Medical Decision Making - Medical Decision Making Patient resting in NAD Ultrasound shows evidence of IUP at 5 weeks 4 days, pole not yet visible Pending T&S results 04/22/19 16:33 T&S - patient is RH positive Patient has CHEF HEAD, Dr. Hung, with whom she can follow-up with 04/22/19 16:39 Discharge - Discharge Information Problems reviewed: Yes Clinical Impression/Diagnosis: Threatened Condition: Stable Disposition: HOME - Admission No - Additional Discharge Information Prescription Drug Monitoring Program (I-STOP) results: I-STOP not reviewed - Follow up/Referral - Patient Discharge Instructions Patient Printed Discharge Instructions: DI for Threatened Additional Instructions: Thank you for choosing [facility]. It was a pleasure taking care of you. Please continue follow-up with your CHEF HEAD regarding your Please start taking vitamins Recommend rest (no heavy work, no intercourse) until resolution of bleeding Return to the Emergency Department if your symptoms worsen or persist or other concerning symptoms. - Post Discharge Activity
== END 2019-04-22 16:30 | disposition home or self-care (01) ==
LOC: JERFT 11:49 → JER 11:49
DX: O26.891 Other specified pregnancy related conditions, first trimester (principal); Z3A.00 Weeks of gestation of pregnancy not specified; N93.9 Abnormal uterine and vaginal bleeding, unspecified
CPT/HCPCS: 36415; 76817-TC; 81003; 84702; 84703; 85025; 86850; 86900; 86901; 87086; 99282-25

== ENCOUNTER 2020-01-26 01:41 | Emergency (ER) | payer OTHER ==
--- NOTE | 2020-01-26 02:03 | PDOC ---
History of Present Illness - General Chief Complaint: Vaginal Bleeding Stated Complaint: VAGINAL BLEEDING, 16WKS Time Seen by Provider: 01/26/20 02:01 History Source: Patient Exam Limitations: No Limitations - History of Present Illness Initial Comments: 01/26/20 02:01 HPI: This is a 24 y/o female who is 16.5 weeks presenting to the ED due to multiple episodes of gross hematuria that began 30 minutes prior to arrival. Per the patient, she first noticed the blood when wiping, but it quickly progressed to gross hematuria filling the toilet. She also endorses increased urgency, frequency, incomplete bladder emptying, and suprapubic pressure. She reports that last night she began feeling suprapubic pain radiating to her left flank. She denies fever/chills, vaginal bleeding or discharge, abdominal cramping, chest pain, palpitations, or lightheadedness. Thrombocytopenia in previous , negative workup for HELLP. Had an emergency due to heart rate deceleration. Rh + ROS: GENERAL/CONSTITUTIONAL: No fever/chills. No weakness. CARDIOVASCULAR: No chest pain or shortness of breath. No palpitations. RESPIRATORY: No cough, wheezing, or hemoptysis. GASTROINTESTINAL: No nausea, vomiting, diarrhea or constipation. GENITOURINARY: Yes dysuria, increased frequency, incomplete bladder emptying, hematuria, suprapubic abdominal pain MUSCULOSKELETAL: No joint or muscle swelling or pain. No neck or back pain. NEUROLOGIC: No headache, loss of consciousness, or change in strength/sensation. ENDOCRINE: No increased thirst. No abnormal weight change. HEMATOLOGIC/LYMPHATIC: Thrombocytopenia in previous ALLERGIC/IMMUNOLOGIC: No hives or skin allergy. PMH: Denied PSx: Emergency Social Hx: Denied etoh, tobacco, drug use Meds: Denied Allergies: KNDA PE: GENERAL: Awake, alert, and fully oriented, in no acute distress. Patient is non- toxic. Conversing normally. HEAD: No signs of trauma EYES: PERRLA, EOMI ENT: Oropharynx clear without exudates. Moist mucosa NECK: Normal ROM, supple LUNGS: Breath sounds equal, clear to auscultation bilaterally HEART: Regular rate and rhythm, normal S1 and S2 ABDOMEN: Tender to palpation in suprapubic area. No CVA tenderness EXTREMITIES: Normal range of motion, no edema. NEUROLOGICAL: Cranial nerves II through XII grossly intact. Normal speech, normal gait SKIN: Warm, Dry, normal turgor, no rashes or lesions noted. PELVIC: Cervical os is closed. No blood in vaginal vault. Physiologic discharge. MDM: 01/26/20 02:29 This is a 24 y/o female who is 16.5 weeks presenting to the ED due to multiple episodes of gross hematuria that began 30 minutes prior to arrival. ddx: hemorrhagic cystitis vs pyelonephritis vs vaginal bleeding - Patient is afebrile, no CVA tenderness on exam. Less concerned for pyelonephritis - Patient is non-toxic in appearance - Pelvic exam with no blood in the vaginal vault Preg U/S CBC CMP Coags UA Pelvic exam 01/26/20 02:56 U/S: FINDINGS: Single live intrauterine gestation with measurements corresponding to 16 weeks and 6 days. heart rate is 163 bpm. motion is detected. Cervical length 4.2 cm. Cervix is closed. Posterior placenta. No previa. - Reassuring U/S Labs notable for: WBC 16.7K UA: 3+ blood, 3+ leuk esterase, WBC 2958, Bacteria 287 - Will give 1g ceftriaxone in the ED - Spoke with Dr. Fenton who is diagnostic medical sonographer for Dr. Mejia. He agreed that she could be managed as an outpatient. Advised d/c with Keflex 500mg B.i.d and follow up in the morning with his office. - Patient stable for d/c with follow up and return precautions. Past History - Medical History Allergies/Adverse Reactions: Allergies Allergy/AdvReac Type Severity Reaction Status Date / Time No Known Allergies Allergy Verified 01/26/20 03:13 Home Medications: Ambulatory Orders Cephalexin [Keflex] 500 mg PO BID 7 Days #14 capsule 01/26/20 Asthma: No Cancer: No Cardiac Disorders: No COPD: No Diabetes: No HTN: No Seizures: No Thyroid Disease: No - Immunization History Immunization Up to Date: Yes - Psycho-Social/Smoking History Smoking History: Never smoked Have you smoked in the past 12 months: No ED Treatment Course - LABORATORY CBC & Chemistry Diagram: 01/26/20 02:25 01/26/20 02:25 Discharge - Discharge Information Problems reviewed: Yes Clinical Impression/Diagnosis: Cystitis Disposition: HOME - Admission No - Additional Discharge Information Prescriptions: Cephalexin [Keflex] 500 mg PO BID 7 Days #14 capsule - Follow up/Referral Referrals: Rebecca Hung MD [Staff Physician] - - Patient Discharge Instructions Patient Printed Discharge Instructions: DI for Hemorrhagic Cystitis Additional Instructions: You came to the ED due to blood in your urine We did an ultrasound which showed that your baby had a good heart rate and was moving. Labs showed that you have a urinary tract infection We sent antibiotics to [facility]. Please take the antibiotics as prescribed. Call Dr. Hung office in the morning to make an appointment for them to see you tomorrow. Return to the ED with any new or worsening symptoms. Return to the ED if you develop a fever, have worsening lower abdominal pain, vaginal bleeding, or nausea and vomiting. - Post Discharge Activity
[2020-01-26 02:05] VITALS: BP 126/66; PULSE 100; TEMP 99; BMI 28.7
--- OUTSIDE RECORDS SUMMARY | 2020-01-26 02:07 | XMS ---
:1995 Author Organization [facility] Care Team Providers Name Role Phone DOMENICA SALMON MD Unavailable DOMENICA SALMON MD Unavailable DOMENICA SALMON MD Unavailable DOMENICA SALMON MD Unavailable ISI REZA Unavailable Unavailable Permary janetaTequila Unavailable [phone] Hunterretta Tequila Unavailable [phone] ED STAFF PHYSICIAN, STAFF Unavailable Unavailable NORI WILDER Unavailable FEI CHADWICK Unavailable Unavailable ED STAFF PHYSICIAN, LOS Unavailable Unavailable MARIA DOLORES RANKIN, KENTON Unavailable MARIA DOLORES RANKIN, KENTON Unavailable MARIA DOLORES RANKIN, KENTON Unavailable OMAR CNM, ECTOR Unavailable OMAR CNM, ECTOR Unavailable Keith Montes MD Unavailable Unavailable Sanz, Aileen Unavailable Unavailable Sanz, Aileen Unavailable Unavailable Sanz, Aileen Unavailable Unavailable Sanz, Aileen Unavailable Unavailable Sanz, Aileen Unavailable Unavailable Sanz, Aileen Unavailable Unavailable Sanz, Aileen Unavailable Unavailable Sanz, Aileen Unavailable Unavailable Sanz, Aileen Unavailable Unavailable Sanz, Aileen Unavailable Unavailable Fei Lu Unavailable [email or web address] Fei Lu Unavailable [email or web address] Fei Lu Unavailable [email or web address] Fei Lu Unavailable [email or web address] ED STAFF PHYSICIAN Unavailable Unavailable BONNIE SAMPSON Unavailable Unavailable RAINA RANKIN, SARITHA Unavailable RAINA RANKIN, SARITHA Unavailable RAINA RANKIN, SARITHA Unavailable LILIAN CNM, KELLIE Unavailable Aszalos, Nori Kami Unavailable Unavailable Aszalos, Kami Unavailable Unavailable Aszalos, Kami Unavailable Unavailable Aszalos, Kami Unavailable Unavailable Aszalos, Kami Unavailable Unavailable Aszalos, Kami Unavailable Unavailable Aszalos, Kami Unavailable Unavailable Aszalos, Kami Unavailable Unavailable Aszalos, Kami Unavailable Unavailable PERICO RANKIN Unavailable Janessa Whitlock MD Unavailable Unavailable Janessa Whitlock MD Unavailable Unavailable Janessa Whitlock MD Unavailable Unavailable Janessa Whitlock MD Unavailable Unavailable Janessa Whitlock MD Unavailable Unavailable Janessa Whitlock MD Unavailable Unavailable Janessa Whitlock MD Unavailable Unavailable Janessa Whitlock MD Unavailable Unavailable Janessa Whitlock MD Unavailable Unavailable KamleshJanessa MD Unavailable Unavailable KamleshJanessa MD Unavailable Unavailable KamleshJanessa MD Unavailable Unavailable KamleshJanessa MD Unavailable Unavailable KamleshJanessa MD Unavailable Unavailable KamleshJanessa MD Unavailable Unavailable MD JEAN-PAUL Unavailable Unavailable Hermilo Unavailable [phone] [place] Unavailable [phone] Chloe RANKIN MD Unavailable [phone] Chloe RANKIN MD Unavailable [phone] ED STAFF PHYSICIAN Unavailable Unavailable Re-disclosure Warning The records that you are about to access may contain information from federally- assisted alcohol or drug abuse programs. If such information is present, then the following federally mandated warning applies: This information has been disclosed to you from records protected by federal confidentiality rules (42 CFR part 2). The federal rules prohibit you from making any further disclosure of this information unless further disclosure is expressly permitted by the written consent of the person to whom it pertains or as otherwise permitted by 42 CFR part 2. A general authorization for the release of medical or other information is NOT sufficient for this purpose. The Federal rules restrict any use of the information to criminally investigate or prosecute any alcohol or drug abuse patient.The records that you are about to access may contain highly sensitive health information, the redisclosure of which is protected by Article 27-F of the [facility] Public Health law. If you continue you may haveaccess to information: Regarding HIV / AIDS; Provided by facilities licensed or operated by the [facility] Office of Mental Health; or Provided by the [facility] Office for People With Developmental Disabilities. If such information is present, then the following [facility] mandated warning applies: This information has been disclosed to you from confidential records which are protected by state law. State law prohibits you from making any further disclosure of this information without the specific written consent of the person to whom it pertains, or as otherwise permitted by law. Any unauthorized further disclosure in violation of state law may result in a fine or alf sentence or both. A general authorization for the release of medical or other information is NOT sufficient authorization for further disclosure. Advance Directives Directive Description Advertising Account Executive Pharmacognosy Teacher Status Observation Data S ource(s) Description Advance No [facility] Advance No [facility] Allergies and Adverse Reactions Type Description Substance Reaction Status Data Source(s ) Drug allergy No Known No Known NO KNOWN [place] Allergies Allergies ALLERG Hospital Allergy to No Known No known TEE (Moun t substance Allergies allergies Julio (situation) [facility]) Propensity to Propensity to Propensity to NEXTG EN ([facility] adverse adverse reactions adverse [facility] Medical reactions (disorder) reactions Center) (disorder) (disorder) No Known No Known No Known eCW3 ([place] Allergies Allergies Allergies [facility]) No Known No Known No Known eCW2 (Planned Allergies Allergies Allergies [facility]) No Known No Known No known eCW3 ([place] Allergies Allergies allergies [facility] (situation) [facility]) Encounters Encounter Providers Location Date Indications Data Source(s ) Outpatient ALL 01/01/2020 [facility]05[facility] Emergency Attender: Keith 11/12/2019 ABD PAINS, 6 WKS Whyajaira Petersen MD 07:11:00 AM Hospital EDT - [facility] 11/12/2019 10:47:00 AM EDT ABD PAINS, 6 WKS [facility] Patient discharged. Attender: Yanna [facility] 09/15/2019 02:44:00 NEXTGEN ([facility] [place] PM EDT - 09/15/2019 [facility] 02:44:00 PM EDT Center) Attender: MD Sellers [facility] 08/31/2019 01:40:00 NEXTGEN ([facility] [place] PM EDT - 08/31/2019 [facility] 01:40:00 PM EDT Center) Attender: [facility] 07/23/2019 04:19:00 NEXTGEN ([facility] [place] PM EDT - 07/23/2019 [facility] 04:19:00 PM EDT Center) Emergency Attender: BONNIE Mejia 07/20/2019 03:59:00 [place] PM EDT - 07/20/2019 [facility] ST[facility]FF ED 07:36:00 PM EDT STAFF PHYSICIANAdmitter: BONNIE Kemp Patient discharged. Outpatient 07/01/2019 [facility] 04:09:00 PM EST Medical C enter Outpatient 07/01/2019 [facility] 12:00:00 AM EST Medical C enter Outpatient 06/17/2019 [facility] 11:09:00 AM EST Medical C enter Outpatient Attender: FEI Mejia 06/17/2019 [facility] JOCELYN ENAMORADO 10:12:00 AM EST Medic al Center MAdmitter: FEI JOCELYN FEI MReferrer: FEI Vivar OutpatientOFFICE/OU Attender: [facility] TPATIENT VISIT, [facility] Jocelyn 10:12:00 AM [facility] 06/17/2019 Center) 10:12:00 AM EST Outpatient 06/17/2019 [facility] 12:00:00 AM EST Medical C enter Outpatient 06/10/2019 [facility] 04:07:00 PM EST Medical C enter Outpatient 06/10/2019 [facility] 12:00:00 AM EST Medical C enter Outpatient 06/03/2019 [facility] 05:09:00 PM EST Medical C enter Outpatient Attender: Aileen Mejia 06/03/2019 [facility] VelezAdmitter: 02:22:00 PM EST Medic al Center Aileen SanzReferrer: Aileen Sanz OutpatientOFFICE/OU Attender: [facility] 06/03/2019 [facility] ([facility] TPATIENT VISIT, [facility] Verito Corona [facility] 02:22:00 PM [facility] 06/03/2019 Center) 02:22:00 PM EST Outpatient 06/03/2019 [facility] 12:00:00 AM EST Medical C enter Emergency Attender: LOS Mejia 06/02/2019 [facility] ED STAFF 02:08:00 PM EST - Medical Center PHYSICIANAttender 06/02/2019 : ED STAFF 09:29:00 PM EST PHYSICIANAttender : STAFF ED STAFF PHYSICIANAdmitter : LOS ED STAFF PHYSICIAN Patient discharged. Planned Planned 05/18/2019 eCW2 [facility] 12:00:00 AM EST [facility]) Emergency Attender: ED H 05/08/2019 [facility] STAFF 01:10:00 PM EST Medical C enter PHYSICIANAttend - 05/08/2019 er: STAFF ED 07:10:00 PM EST STAFF PHYSICIANAdmitt er: ED STAFF PHYSICIAN Patient discharged. [facility] 05/04/2019 eCW2 ([facility] 12:00:00 AM EST Parenthoo d - Jake HudsonJulio [facility]) Outpatient ALL 01/25/2019 Centricity 12:46:55 AM EDT ([facility]) (ROV) Regular [place] [facility] 08/29/2018 eCW3 ([facility] 12:00:00 AM EDT [facility] - 08/29/2018 Care) 12:00:00 AM EDT () [facility] 06/27/2018 eCW3 ([facility] A28 12:00:00 AM EST Rive r Health Visit - 06/27/2018 Care) 12:00:00 AM EST Outpatient<td Attender: Jake 03/11/2018 TEE (M ount ID="encounterTy [facility] 11:45:00 AM EDT Ervin on peDescriptionID [facility] - 03/11/2018 Nei [place]hood 0">WALKINS</td> 04:51:56 PM EDT Heal Center) <td>KELLIE LILIAN CNM</td><td>[facility]</td><td> 03/11/2018</td> <td></td> Outpatient<td Attender: Jake 03/05/2018 TEE (M ount ID="encounterTy [facility] 04:48:00 PM EDT Ervin on peDescriptionID [facility] - 03/05/2018 [place]hood 1">*No 11:59:00 PM EDT Health Ce nter) Show*</td><td>A AMBROCIO [facility]</td><td>[facility]</td><td> 03/05/2018</td> <td></td> Outpatient<td Attender: Jake 02/25/2018 TEE (M ount ID="encounterTy [facility] 11:00:00 AM EDT Ervin on peDescriptionID [facility] - 02/25/2018 [place]i [place]hood 2">OFFICE 11:28:19 AM EDT Health Ce nter) VISIT</td><td>A MICHOACANOOMAR QUINTANA [facility]</td><td>[facility]</td><td> 02/25/2018</td> <td></td> Outpatient<td Attender: Jake 01/28/2018 MCGREGOR (M ount ID="encounterTy [facility] 12:30:00 PM EDT Ulises non peDescriptionID [facility] - 01/28/2018 Marla jaffe 3">OFFICE 04:19:56 PM EDT Health Ce nter) VISIT</td><td>D SHAZIA RIVER MD</td><td>[facility]</td><td> 01/28/2018</td> <td></td> Outpatient<td Attender: Jake 01/28/2018 MCGREGOR (M ount ID="encounterTy [facility] 10:00:00 AM EDT Ervin on peDescriptionID LILIAN [facility] Health Center - 01/28/2018 Regine jones 4">WALKINS</td> 10:55:25 AM EDT Heal [facility]) <td>KELLIE GALESAN [facility]</td><td>[facility]</td><td> 01/28/2018</td> <td></td> Outpatient<td Attender: [place] 01/21/2018 MCGREGOR ([place] ID="encounterTy [facility] 07:07:00 PM EDT Ervin on peDescriptionLIBERTY PARIS MD - 01/21/2018 Jco kadeem 5">*No 11:59:00 PM EDT Health Ce nter) Show*</td><td>R KULWANT PARIS MD</td><td>[facility]</td><t d>01/21/2018</t d><td></td> Outpatient<td Attender: Jake 01/14/2018 MCGREGOR (M ount ID="encounterTy [facility] 11:00:00 AM EDT Ulises non peDescriptionLIBERTY RANKIN Health Center - 01/14/2018 Marla jaffe 6">Regular 12:11:04 PM EDT Health Ce nter) Sonogram</td><t d>DALE RIVER MD</td><td>[facility]</td><td> 01/14/2018</td> <td></td> Outpatient<td Attender: Jake 01/10/2018 MCGREGOR (M ount ID="encounterTy [facility] 11:45:00 AM EDT Ervin on peDescriptionID RAINA RANKIN [facility] - 01/10/2018 Marla jaffe 7">WALKINS</td> 12:11:53 PM EDT [facility]) <td>SARITHA PARIS MD</td><td>[facility]</td><td> 01/10/2018</td> <td></td> Outpatient<td Attender: Jake 12/24/2017 MCGREGOR (M ount ID="encounterTy [facility] 02:00:00 PM EDT Ervin on peDescriptionID RAINA RANKIN [facility] - 12/24/2017 Marla hborhood 8">WALKINS</td> 04:21:17 PM EDT [facility]) <td>SARITHA PARIS MD</td><td>[facility]</td><td> 12/24/2017</td> <td><content ID="encounterDi [email or web address]">P regnancy</cornel nt></td> Outpatient<td Attender: Jake 11/12/2017 MCGREGOR ID="[id number]"> ECTOR [facility] 10:00 :00 AM ([place] FOLLOW UP</td><td>ECTOR NELSON [facility] EDT - [facility]</td><td>[facility] 11/12/2017 Health Center</td><td>11/12/2017</td><td></td> 11:53:1 0 AM Center) EDT Outpatient<td Attender: Jake 10/31/2017 MCGREGOR ID="[id number]">*No [facility] 04:01:00 PM (Giovani Kim Show*</td><td>[facility] EDT - Neighborhood [address]</td><td>[facility] 10/31/2017 Health Center</td><td>10/31/2017</td><td></td> 11:59:0 0 PM Center) EDT Outpatient<td Attender: Jake 10/31/2017 TEE ID="[id number]">OFFICE [facility] 11:00: 00 AM (Giovani Kim VISIT</td><td>[facility] Health EDT - Neighborhood CLASSROOM MONITOR</td><td>[facility] 10/31/2017 Health Center</td><td>10/31/2017</td><td></td> 11:59:0 0 PM Center) EDT Outpatient<td Attender: Jake 10/29/2017 TEE ID="[id number]"> [facility] 12:0 0:00 PM (Giovani Kim SONOGRAM</td><td>DALE RIVER MD Health EDT - Neighborhood MD</td><td>[facility] 10/29/2017 Health Center</td><td>10/29/2017</td><td></td> 01:19:4 4 PM Center) EDT Outpatient<td Attender: Jake 10/24/2017 TEE ID="[id number]">*[facility] 03:00:00 PM (Giovani Kim Reading*</td><td>ECTOR OMAR OMAR CN Health EDT - Neighborhood CNM</td><td>[facility] 10/24/2017 Health Center</td><td>10/24/2017</td><td></td> 03:13:5 5 PM Center) EDT Outpatient<td Attender: Jake 10/22/2017 TEE ID="[id number]">[address] [place] [address] 01:30:00 PM (Giovani Kim </td><td>ECTOR OMAR OMAR CNM Health EDT - Neighborhood CNM</td><td>[facility] 10/22/2017 Health Center</td><td>10/22/2017</td><td></td> 01:26:4 6 PM Center) EDT Outpatient<td Attender: Jake 10/22/2017 MCGREGOR ID="[id number]">NURSE [facility] 01:00:0 0 PM ([place] SCREENING</td><td>ECTOR OMAR OMAR [facility] Health EDT - Neighborhood CN</td><td>[facility] 10/22/2017 Health Center</td><td>10/22/2017</td><td></td> 02:05:0 5 PM Center) EDT Outpatient<td Attender: Jake 10/22/2017 MCGREGOR ID="[id number]">*[facility] 12:44: 00 PM ([place] Update*</td><td>ECTOR OMAR OMAR [facility] Health EDT - Neighborhood CN</td><td>[facility] 10/22/2017 Health Center</td><td>10/22/2017</td><td></td> 11:59:0 0 PM Center) EDT Outpatient<td Attender: Jake 10/17/2017 MCGREGOR ID="[id number]">OFFICE [facility] 03:30: 00 PM ([place] VISIT</td><td>ECTOR OMAR OMAR CN Health EDT - Neighborhood CN</td><td>[facility] 10/17/2017 Health Center</td><td>10/17/2017</td><td></td> 03:45:4 8 PM Center) EDT Attender: Family 10/14/2017 [facility] 10:30:00 AM ([facility] EDT [facility] 10/14/2017 Medical 10:30:00 AM Center) EDT Attender: Family 09/24/2017 [facility] 03:05:00 PM ([facility] 09/24/2017 Medical 03:05:00 PM Center) EDT Attender: Family 09/17/2017 [facility] 02:04:00 PM ([facility] 09/17/2017 Medical 02:04:00 PM Center) EDT [facility] [place] [facility] 06/21/2017 eCW2 ([facility] 12:00:00 AM [facility] [employer] [facility]) [facility] [place] [facility] 06/01/2017 eCW2 ([facility] 12:00:00 AM [facility] [employer] [facility]) Outpatient ALL 04/26/2017 Centricity 08:02:12 PM ([facility]) Attender: Family 04/26/2017 [facility] 09:35:00 AM ([facility] 04/26/2017 Medical 09:35:00 AM Center) EST Attender: Family 10/14/2015 [facility] 10:16:00 AM ([facility] 10/14/2015 Medical 10:16:00 AM Center) EDT Attender: Family 06/16/2015 [facility] 05:08:00 PM ([facility] 06/16/2015 Medical 05:08:00 PM Center) EST [facility] [place] [facility] 06/14/2015 eCW2 ([facility] 12:00:00 AM [facility] [employer] [facility]) [facility] 06/09/2015 eCW2 ([facility] 12:00:00 AM [facility] [employer] [facility]) Outpatient<td Attender: Jake 12/21/2014 MCGREGOR ID="[id number]">*Jessica METZGER [facility] 02:08:00 PM ([place] Show*</td><td>DOMENICA SALMON MD Health EDT - [facility] </td><td>[facility] 12/21/2014 Health Center</td><td>12/21/2014</td><td></td> 11:59:0 0 PM Center) EDT Outpatient<td Attender: Jake 12/20/2014 TEE ID="[id number]">[facility] 02:0 [facility] PM (Giovani Kim /td><td>KENTON WHITTEN MD</td><td>Jake WHITTEN MD [facility] EDT [facility] 12/20/2014 Health Center</td><td>12/20/2014</td><td></td> 11:59:0 0 PM Center) EDT [facility] 04/22/2014 eCW2 ([facility] 12:00:00 AM Parenthood - [place] EST [facility] [employer] [facility]) [facility] Planned 04/02/2014 eCW2 ([facility] 12:00:00 AM Parenthood - [place] EST [facility] [employer] [facility]) Outpatient<td Attender: Jake 02/04/2012 TEE ID="[id number]">*No [facility] 05:44:00 PM ([place] Show*</td><td>[facility] EDT [facility] </td><td>[facility] 02/04/2012 Health Center</td><td>02/04/2012</td><td></td> 11:59:0 0 PM Center) EDT Immunizations Vaccine Date Status Description Data Source(s) Mifepristone 05/04/2019 completed eCW2 ([facility] 02:48:00 PM EST - [facility]) Misoprostol #4 (MAB) 05/04/2019 completed eCW2 ([facility] 02:48:00 PM EST - [facility]) TB Skin 10/22/2017 completed PPD 1 10/22/2017 Right Active Conchita kashmir OLIVEIRA test is 02:05:00 PM TB Lower (Administered) [place] ([place] not EDT TST Forearm [facility] Neighborhood vaccine. Healt h Center) MMR 04/26/2017 12:00:00 AM EST completed MMR N EXTGEN ([facility]) Source: New Immunization Record Note that this 01/29/2016 09:01:00 completed [facility] vaccine name has AM EDT Medical Diego ter changed. See also Td (adult). It is not adsorbed. This CVX code allows 01/29/2016 12:00:00 completed Td(adult) NEXTGEN ([facility] reporting of a AM EDT unspecified [facility] Medic al vaccination when formulation Center) formulation is unknown (for example, when recording a Td vaccination when noted on a vaccination card) Source: Other Registry Medications Medication Brand Start Product Dose Route Administrative Pharmacy [facility] Indications Reaction Description Data Name Date Form Instructions Instructions Source(s) Ascorbic Vitami 1 tablet N EXTGEN Acid 500 MG n C 2020 daily with (S aint Oral Tablet 500 mg 12:00: iron Samson phs Vitamin C tablet 00 AM supplement M edical 500 mg EST Center) tablet Docusate Colace ORAL active Docusate N EXTGEN Sodium 100 100 mg 2019 {caps Sodium 100 (Saint MG Oral capsul 12:00: ule} MG Oral Ujde hs Capsule e 00 AM Capsule Medical [Colace] EST [Colace] Center) Colace 100 mg capsule ferrous iron ORAL active take 1 NEXTGE N sulfate 325 325 mg 2019 {tbl} tablet by (Saint MG Oral (65 mg 12:00: oral route Gunjan sephs Tablet iron iron) 00 AM every day M edical 325 mg (65 tablet EST Center) mg iron) tablet Norethin Noreth .0 active Norethin e CW3 Garfield-Eth in 2018 {tabl Garfield-Eth ([facility]-FE Garfield-Et 12:00: et} Estrad-FE R iver 1-20 MG-MCG h 00 AM 1-20 MG-MCG Health Estrad EDT Care) -FE 1-20 MG-MCG Ibuprofen ibupro ORAL active take 1 NE XTGEN 400 MG Oral fen 2017 {tbl} tablet by (S aint Tablet 400 mg 12:00: oral route Clem ephs ibuprofen tablet 00 AM every 4 - 6 Medical 400 mg EDT hours as Center) tablet needed Ondansetron Zofran active 1 tablets eCW2 4 MG Oral 4 MG (Planned Tablet Parenthood [Zofran] - [facility] Zofran 4 MG [facility] ed) Azithromyci Azithr suspend as direc alejandro eCW2 n 500 MG omycin ed (Planned Oral Tablet 500 MG Parent oswald - [place] [employer] ed) Misoprostol misopr 4 complet Lebron nt 0.2 MG Oral ostol ed Andrew Tablet 200 Medical misoprostol mcg Center 200 mcg Tablet Tablet, , Ordered By: Princess Chawla d By: Hiram Moseley MDDirection e s: 4 tablet Benjam oral once in, MDDire ctions : 4 tablet oral once UNK active eCW3 VITAMINS VITAMINS ([facility]) + prenat active NEXTG EN DHA 28 mg al vit (Saint iron-975 91/iro Andrew mcg-200 mg n/foli Medical oral pack c/dha Center) Pnv TABLET 1 ORAL active White Cmb#21/Iron {Caps [place] /Folic ule} [facility] Acid* Mifepriston Mifepr suspend 1 tablet eCW2 e 200 MG istone ed (Planned Oral Tablet 200 MG Parent oswald - [place] [employer] ed) Ondansetron Zofran suspend 1 tablet s eCW2 4 MG Oral 4 MG ed (Planned Tablet Parenthood [Zofran] - [facility] Zofran 4 MG [employer] ed) Iron UNK active Iron eCW3 (Ferrous (Ferrous ([facility] Sulfate) Sulfate) [facility]) Ibuprofen Ibupro suspend 1 tablet e CW2 800 MG Oral fen ed (Planned Tablet 800 MG [facility] - [facility] ed) Cyred Cyred suspend 1 tablet eCW2 0.15-30 0.15-3 ed (Planned MG-MCG 0 Parenthood MG-MCG - [place] [employer] ed) Gardasil UNK suspend as directed e CW2 ed ([facility] - [place] [employer] [employer] ed) Iron UNK active Iron eCW3 (Ferrous (Ferrous ([facility] Sulfate) Sulfate) [facility]) Sulfamethox sulfam 1 complet Lebron nt azole 800 ethoxa ed Andrew MG / zole-t Medical Trimethopri rimeth Center m 160 MG oprim Oral Tablet 800 sulfamethox mg-160 azole-trime mg thoprim 800 Tablet mg-160 mg , Tablet, Ordere Ordered By: d By: Fidel Guaman MDDirection s, s: 1 tablet MDDire oral every ctions twelve : 1 hours tablet oral every twelve hours Ibuprofen Ibupro active 1 tablet eC W2 800 MG Oral fen ([facility]t [facility]) Clindamycin clinda 1 complet Lebron nt 300 MG Oral mycin ed Andrew Capsule HCl Medical clindamycin 300 mg Center HCl 300 mg Capsul Capsule, e, Ordered By: Princess Phelps d By: Bonnie Oquendo s: 1 s, capsule MDDire oral three ctions times a day : 1 capsul e oral three times a day Lutera Lutera suspend 1 tablet eCW2 0.1-20 0.1-20 ed (Planned MG-MCG MG-[facility]G [facility]) UNK active eCW3 VITAMINS VITAMINS ([facility]) Methylergon methyl 2 complet [place] nt ovine ergono ed Andrew Maleate 0.2 vine Medical MG Oral 0.2 mg Center Tablet Tablet methylergon , ovine 0.2 Ordere mg Tablet, d By: Ordered By: Ortiz Sr PADire PADangie ctions s: 2 tablet : 2 oral every tablet six hours oral every six hours Misoprostol UNK suspend 4 tablets eCW2 4 tabs 200 ed [facility] Insurance Providers Payer name Policy type / Policy ID Covered Covered constitution party's Policy Plan Coverage type constitution party ID relationship to Odell Information odell LIANNA [id number] SP [id number] ESSENTIAL PLAN 3 4 AMAYA [id number] PT [id number] ESSENTIAL PLAN 4 O LIANNA O [id number] 01 [id number] ESSENTIALS PLAN 4 MEDICAID [id number] SP [id number] [place] Care Individual 0 Self 0 [place] Policy [place] Care [id number] S [id number] O Essential Plan 4 Medicaid [id number] S [id number] Regular Clinic Visit Dental [id number] S [id number] Dentaquest Essential Plan 4 Arash Vision [id number] S [id number] Essential Plan 3 4 Problems, Conditions, and Diagnoses Code Display Name Description Problem Type Effective Data Sour ce(s) Dates [id number] Possible Varicella Possible Problem 10/22/2017 JOSHUA AY (Giovani Susceptibility (no Varicella 12:00:00 AM Verno n Prior History) Susceptibility EDT [facility]) History) [id number] History of Reported Previous Problem 10/22/2017 DOV Y ([place] sexually Std 12:00:00 AM Juilo transmitted EDT [facility]) (situation) [id number] , Problem 09/04/2017 TEE ([place] t function 12:00:00 AM Julio (observable EDT [facility] entity) [facility] [place]) Z33.1 Problem eCW3 ([facility]) Unknown Problems Unknown Problems Problem eC W2 ([facility]) Z3A.01 Less than 8 weeks Z3A.01 Diagnosis 11/12/2019 [place] gestation of 07:30:00 AM Hospital EDT N83.8 Other N83.8 Diagnosis 11/12/2019 [place] noninflammatory 07:30:00 AM Hospital disorders of EDT ovary, fallopian tube and broad ligament N83.11 Corpus luteum cyst N83.11 Diagnosis 11/12/2019 [place] of right ovary 07:30:00 AM Hospital EDT O34.81 Maternal care for O34.81 Diagnosis 11/12/2019 [place] other 07:30:00 AM Hospital abnormalities of EDT pelvic organs, first trimester R10.32 Left lower R10.32 Diagnosis 11/12/2019 [place] quadrant pain 07:30:00 AM Hospital EDT O26.891 Other specified O26.891 Diagnosis 11/12/2019 [place] ins related 07:30:00 AM Hospit al conditions, first EDT trimester L03.116 Cellulitis of left CELLULITIS OF Diagnosis 07/20/2019 [place] Andrew lower limb LEFT LOWER LIMB 03:59:00 PM Medical Center EDT L03.90 Cellulitis, CELLULITIS, Diagnosis 07/20/2019 [place] unspecified UNSPECIFIED 03:59:[address] EDT O03.9 Complete or COMPLETE OR UNSP Diagnosis 06/17/2019 [facility] unspecified SPONTANEOUS 10:12:[address] spontaneous WITHOUT EST without COMPLICATION complication O03.4 Incomplete INCOMPLETE Diagnosis 06/02/2019 [facility] spontaneous SPONTANEOUS 02:08:[address] without WITHOUT EST complication COMPLICATION N93.9 Abnormal uterine ABNORMAL UTERINE Diagnosis 06/02/2019 [facility] and vaginal AND VAGINAL 02:08:[address] bleeding, BLEEDING, EST unspecified UNSPECIFIED Z3A.00 Weeks of gestation WEEKS OF Diagnosis 05/08/2019 [facility] of not GESTATION OF 01:10:00 PM Medic al Center specified NOT EST SPECIFIED O26.859 Spotting SPOTTING Diagnosis 05/08/2019 [facility] complicating COMPLICATING 01:10:00 PM Medical C enter , , EST unspecified UNSPECIFIED trimester TRIMESTER R10.9 Unspecified UNSPECIFIED Diagnosis 05/08/2019 [facility] abdominal pain ABDOMINAL PAIN 01:10:00 PM Medic [facility] [place] EST Z34.82 Encounter for Encounter for Diagnosis 07/15/2018 TEE ([facility] supervision of warren of normal 07:10:28 PM Ve rnon other normal , second EST [facility] , second trimester [facility]) trimester Z3A.15 15 weeks gestation 15 weeks Diagnosis 07/15/2018 JOSHUA MOODY ([facility] of gestation of 07:10:28 PM [facility]) Surgeries/Procedures Procedure Description Date Indications Data Source(s) Transvaginal 11/12/2019 [place] ultrasonography of 12:00:00 AM Hospital pelvis (procedure) EDT OFFICE/OUTPATIENT 06/17/2019 NEXTGEN (S aint VISIT, EST 12:00:00 AM [facility]) 06/17/2019 12:00:00 AM EST OFFICE/OUTPATIENT 06/03/2019 NEXTGEN (S aint VISIT, EST 12:00:00 AM [facility]) 06/03/2019 12:00:00 AM EST HEMOGLOBIN 05/04/2019 eCW2 (Planned 12:00:00 AM [facility] EST [employer]) Test 05/04/2019 eCW2 (Planned 12:00:00 AM [facility] [employer]) US transvaginal, 05/04/2019 eCW2 (Plann ed uterus 12:00:00 AM [facility] [employer]) CHLAMYDIA, BIBIANA 05/04/2019 eCW2 (Planned 12:00:00 AM [facility] EST [employer]) GONORRHEA, BIBIANA 05/04/2019 eCW2 (Planned 12:00:00 AM [facility] EST [employer]) Misoprostol, oral, 200 05/04/2019 eCW2 (Planned mcg 12:00:00 AM [facility] EST [employer]) Mifepristone, oral, 05/04/2019 eCW2 (Pl anned 200 mg 12:00:00 AM [facility] EST [employer]) Cyred (NON 340B) 05/04/2019 eCW2 (Plann ed 12:00:00 AM [facility] EST [employer]) Glucose, Quantitive Glucose, Quantitive 02/25/2018 [facility] ([facility] Blood (except reagent Blood (except reagent 12:00:00 AM [facility] strip) strip) [facility]) OBSTETRICAL, COMPLETE OBSTETRICAL, COMPLETE 01/28/2018 [place] ([facility] 12:00:00 AM [facility]) OBSTETRICAL, LIMITED OBSTETRICAL, LIMITED 01/14/2018 [place] ([facility] 12:00:00 AM [facility]) LIFE ISSUES/CONCRETE LIFE ISSUES/CONCRETE 10/31/2017 [place] ([facility] SERVICE SERVICE 12:00:00 AM [facility]) Transabdominal OB Transabdominal OB 10/29/2017 [facility] ([facility] Ultrasound first Ultrasound first 12:00:00 AM [facility] Trimester Trimester [facility]) PPD READING ONLY PPD READING ONLY 10/24/2017 LIBERALWA Y ([facility] 12:00:00 AM [facility]) URINALYSIS URINALYSIS 10/22/2017 [place] ([facility] 12:00:00 AM [facility]) URINE C AND S URINE C AND S 10/22/2017 [place] ([place] [facility] 12:00:00 AM [facility]) ABO--- BLOOD TYPING ABO--- BLOOD TYPING 10/22/2017 Codie SANTOS ([facility] 12:00:00 AM [facility]) HEMOGLOBIN HEMOGLOBIN 10/22/2017 TEE ([place] ELECTROPHORES ELECTROPHORES 12:00:00 AM [facility]) HEPATITIS B SURFACE AG HEPATITIS B SURFACE 10/22/2017 TEE ([place] AG 12:00:00 AM [facility]) RUBELLA TITER RUBELLA TITER 10/22/2017 [place] ([place] [facility] 12:00:00 AM [facility]) URIC ACID; BLOOD URIC ACID; BLOOD 10/22/2017 GREENWA Y ([facility] 12:00:00 AM [facility]) PT (PROTHROMBIN TIME) PT (PROTHROMBIN TIME) 10/22/2017 TEE ([facility] 12:00:00 AM [facility]) METABOLIC PANEL BASIC METABOLIC PANEL BASIC 10/22/2017 [place] ([place] TOTAL TOTAL 12:00:00 AM [facility]) PTT (PARTIAL THROMBO PTT (PARTIAL THROMBO 10/22/2017 [place] ([facility] 12:00:00 AM [facility]) LIPID PANEL LIPID PANEL 10/22/2017 TEE ([facility] 12:00:00 AM [facility]) BLOOD LEAD BLOOD LEAD 10/22/2017 TEE ([facility] 12:00:00 AM [facility]) PPD PPD 10/22/2017 [place] ([facility] 12:00:00 AM [facility]) TSH-THYROID TSH-THYROID 10/22/2017 [place] ([place] STIMULATING STIMULATING 12:00:00 AM [facility]) VDRL (RPR) VDRL (RPR) 10/22/2017 TEE ([facility] 12:00:00 AM [facility]) Assessment Assessment 10/22/2017 G REENWAY ([facility] 12:00:00 AM [facility]) LMP: 09/04/2017 LMP: 09/04/2017 10/22/2017 TEE (M ount 12:00:00 AM [facility]) URINE TEST URINE TEST 10/17/2017 [place] ([place] ONLY ONLY 12:00:00 AM [facility]) Results ID Date Data Source [id number] 11/12/2019 07:33:00 AM [facility] REFERENCE RANGES:NON- 0-5 MIU/ML.GESTATIONAL AGE BHCG QUANT LEVEL (MIU/ML) 0.2-1 WEE K 5-50 1-2 WEEKS 50-500 2-3 WEEKS 100-5000 3-4 WEEKS [phone] 4-5 WEEKS [phone] 5-6 WEEKS [phone] 6-8 WEEKS [id number] 2-3 MONTHS [id number] CANNOT BE INTERPRETED A TUMOR MARKER IN FEMALES.TEST PERFORMED BY [employer] [place] [employer] CHEMILUMINESCENCE METHOD. Name Value Range Interpretation Description Data Sup porting Code Source(s) Document(s ) TOTAL HCG, 6513.1 [place] QUANTITATIVE m[IU]/mL Hospital ID Date Data Source [id number] 11/12/2019 07:33:00 AM [facility] Value Range Interpretation Code Description Data Gabrielle rce(s) Supporting Document(s ) Lipase 20 U/L [place] [Enzymatic Hospital activity/vo lume] in Serum or Plasma ID Date Data Source [id number] 11/12/2019 07:33:00 AM [facility] Value Range Interpretation Description Data Sup porting Code Source(s) Document(s ) Aspartate 15 U/L [place] aminotransferase [place] [Enzymatic Hospital activity/volume] in Serum or Plasma ID Date Data Source [id number] 11/12/2019 07:33:00 AM [facility] Name Value Range Interpretation Description Data Sup porting Code Source(s) Document(s ) Alanine 11 U/L [place] aminotransferase [place] [Enzymatic Hospital activity/volume] in Serum or Plasma ID Date Data Source [id number] 11/12/2019 07:33:00 AM [facility] Name Value Range Interpretation Description Data Sup porting Code Source(s) Document(s ) Alkaline 50 U/L [place] phosphatase Hospital [Enzymatic activity/volume ] in Serum or Plasma ID Date Data Source [id number] 11/12/2019 07:33:00 AM EDT Name Value Range Interpretation Description Data Sup porting Code Source(s) Document(s ) Bilirubin.t 0.7 mg/dL [facility] [Mass/volum e] in Serum or Plasma ID Date Data Source [id number] 11/12/2019 07:33:00 AM EDT Name Value Range Interpretation Code Description Data Gabrielle rce(s) Supporting Document(s ) Albumin/Glob 2.0 [place] ulin [Mass Hospital Ratio] in Serum or Plasma ID Date Data Source [id number] 11/12/2019 07:33:00 AM EDT Name Value Range Interpretation Description Data Sup porting Code Source(s) Document(s ) Albumin 4.8 g/dL [place] [Mass/volume Hospital ] in Serum or Plasma ID Date Data Source [id number] 11/12/2019 07:33:00 AM EDT Name Value Range Interpretation Description Data Sup porting Code Source(s) Document(s ) Protein 7.2 g/dL [place] [Mass/volume Hospital ] in Serum or Plasma ID Date Data Source [id number] 11/12/2019 07:33:00 AM EDT Name Value Range Interpretation Description Data Sup porting Code Source(s) Document(s ) Calcium 9.2 mg/dL [place] [Mass/volume Hospital ] in Serum or Plasma ID Date Data Source [id number] 11/12/2019 07:33:00 AM EDT Name Value Range Interpretation Code Description Data Gabrielle rce(s) Supporting Document(s ) Urea 8.3 [place] nitrogen/Cre Hospital atinine [Mass Ratio] in Serum or Plasma ID Date Data Source [id number] 11/12/2019 07:33:00 AM EDT Name Value Range Interpretation Description Data Sup porting Code Source(s) Document(s ) Creatinine 0.6 mg/dL [place] [Mass/volume] Hospital in Serum or Plasma ID Date Data Source [id number] 11/12/2019 07:33:00 AM EDT Name Value Range Interpretation Description Data Sup porting Code Source(s) Document(s ) Urea nitrogen 5 mg/dL [place] [Mass/volume] Hospital in Serum or Plasma ID Date Data Source [id number] 11/12/2019 07:33:00 AM EDT [facility] Value Range Interpretation Code Description Data Gabrielle rce(s) Supporting Document(s ) Anion gap in 11 [place] Serum or [facility] Plasma ID Date Data Source [id number] 11/12/2019 07:33:00 AM EDT Name Value Range Interpretation Description Data Sup porting Code Source(s) Document(s ) Carbon 26 mmol/L [place] dioxide, Hospital total [Moles/volu me] in Serum or Plasma ID Date Data Source [id number] 11/12/2019 07:33:00 AM EDT Name Value Range Interpretation Description Data Sup porting Code Source(s) Document(s ) Chloride 106 [place] [Moles/volum mmol/L Hospital e] in Serum or Plasma ID Date Data Source [id number] 11/12/2019 07:33:00 AM EDT Name Value Range Interpretation Description Data Sup porting Code Source(s) Document(s ) Potassium 4.5 [place] [Moles/volume mmol/L Hospital ] in Serum or Plasma ID Date Data Source [id number] 11/12/2019 07:33:00 AM EDT Name Value Range Interpretation Description Data Sup porting Code Source(s) Document(s ) Sodium 138 mmol/L [place] [Moles/volu Hospital in] in Serum or Plasma ID Date Data Source [id number] 11/12/[facility] Interpretation Description Data Sup porting Code Source(s) Document(s ) Glucose 106 mg/dL [place] [Mass/volume Hospital ] in Serum or Plasma ID Date Data Source [id number] 11/12/2019 07:33:00 AM EDT [facility] Value Range Interpretation Description Data Sup porting Code Source(s) Document(s ) Leukocyte NEGATIVE [place] esterase Hospital [Presence] in Urine by Test strip ID Date Data Source [id number] 11/12/2019 07:33:00 AM EDT [facility] Value Range Interpretation Description Data Sup porting Code Source(s) Document(s ) URINE NEGATIVE [place] NITRITE Hospital ID Date Data Source [id number] 11/12/2019 [facility] Interpretation Description Data Sup porting Code Source(s) Document(s ) Erythrocytes NEGATIVE [place] [#/volume] in Hospital Urine by Test strip ID Date Data Source [id number] 11/12/2019 07:33:00 AM EDT [facility] Value Range Interpretation Code Description Data Gabrielle rce(s) Supporting Document(s ) Bilirubin. NEGATIVE [place] total Hospital [Presence] in Urine by Test strip ID Date Data Source [id number] 11/12/2019 [facility] Interpretation Description Data Sup porting Code Source(s) Document(s ) Urobilinogen 0.2 [place] [Units/volume] mg/dL Hospital in Urine by Test strip ID Date Data Source [id number] 11/12/2019 07:33:00 AM EDT [facility] Value Range Interpretation Description Data Sup porting Code Source(s) Document(s ) Ketones NEGATIVE [place] [Mass/volume Hospital ] in Urine by Test strip ID Date Data Source [id number] 11/12/2019 07:33:00 AM EDT Name Value Range Interpretation Description Data Sup porting Code Source(s) Document(s ) Glucose NEGATIVE [place] [Mass/volume Hospital ] in Urine by Test strip ID Date Data Source [id number] 11/12/2019 07:33:00 AM EDT [facility] Value Range Interpretation Description Data Sup porting Code Source(s) Document(s ) Protein NEGATIVE [place] [Presence] Hospital in Urine by Test strip ID Date Data Source [id number] 11/12/2019 [facility] Interpretation Code Description Data Gabrielle rce(s) Supporting Document(s ) pH of Urine 7.0 [place] by Test Hospital strip ID Date Data Source [id number] 11/12/2019 [facility] Interpretation Code Description Data Supporting Source(s) Document(s ) Specific 1.013 [place] gravity of Hospital Urine by Test strip ID Date Data Source [id number] 11/12/2019 [facility] Interpretation Description Data Sup porting Code Source(s) Document(s ) Clarity in Urine CLEAR [place] by Refractometry Hospital automated ID Date Data Source [id number] 11/12/2019 07:33:00 AM EDT [place] [facility] Name Value Range Interpretation Code Description Data Gabrielle rce(s) Supporting Document(s ) Color of YELLOW [place] Urine Hospital ID Date Data Source [id number] 11/12/2019 07:33:00 AM EDT Name Value Range Interpretation Code Description Data Supporting Source(s) Document(s ) NUCLEATED RBCS 0.0 % [place] (AUTO Hospital DIFF%)DIS ID Date Data Source [id number] 11/12/2019 07:33:00 AM EDT [facility] Value Range Interpretation Description Data Sup porting Code Source(s) Document(s ) Differential AUTOMATED [place] cell count [facility] method - Blood ID Date Data Source [id number] 11/12/2019 07:33:00 AM EDT [facility] Value Range Interpretation Description Data Sup porting Code Source(s) Document(s ) Immature 0.08 [place] granulocytes 10*3/uL Hospital [#/volume] in Blood by Automated count ID Date Data Source [id number] 11/12/2019 07:33:00 AM EDT [facility] Value Range Interpretation Description Data Sup porting Code Source(s) Document(s ) Basophils 0.02 [place] [#/volume] in 10*3/uL Hospital Blood by Automated count ID Date Data Source [id number] 11/12/2019 07:33:00 AM EDT Name Value Range Interpretation Description Data Sup porting Code Source(s) Document(s ) Eosinophils 0.04 [place] [#/volume] in 10*3/uL Hospital Blood by Automated count ID Date Data Source [id number] 11/12/2019 07:33:00 AM EDT [facility] Value Range Interpretation Description Data Sup porting Code Source(s) Document(s ) Monocytes 0.56 [place] [#/volume] in 10*3/uL Hospital Blood by Automated count ID Date Data Source [id number] 11/12/2019 07:33:00 AM EDT [facility] Value Range Interpretation Description Data Sup porting Code Source(s) Document(s ) Lymphocytes 1.36 [place] [#/volume] in 10*3/uL Hospital Blood by Automated count ID Date Data Source [id number] 11/12/2019 07:33:00 AM EDT [facility] Value Range Interpretation Description Data Sup porting Code Source(s) Document(s ) Neutrophils 10.59 [place] [#/volume] in 10*3/uL [facility] Blood by Automated count ID Date Data Source [id number] 11/12/2019 07:33:00 AM EDT [facility] Value Range Interpretation Description Data Sup porting Code Source(s) Document(s ) Nucleated 0.0 % [place] erythrocytes/10 Hospital 0 leukocytes [Ratio] in Blood by Automated count ID Date Data Source [id number] 11/12/2019 07:33:00 AM EDT [facility] Value Range Interpretation Description Data Sup porting Code Source(s) Document(s ) Immature 0.6 % [place] granulocytes/10 Hospital 0 leukocytes in Blood by Automated count ID Date Data Source [id number] 11/12/2019 07:33:00 AM EDT [facility] Value Range Interpretation Description Data Sup porting Code Source(s) Document(s ) Basophils/100 0.2 % [place] leukocytes in Hospital Blood by Automated count ID Date Data Source [id number] 11/12/2019 07:33:00 AM EDT [facility] Value Range Interpretation Description Data Sup porting Code Source(s) Document(s ) Eosinophils/100 0.3 % [place] leukocytes in Hospital Blood by Automated count ID Date Data Source [id number] 11/12/2019 07:33:00 AM EDT [facility] Value Range Interpretation Description Data Sup porting Code Source(s) Document(s ) Monocytes/100 4.4 % [place] leukocytes in Hospital Blood by Automated count ID Date Data Source [id number] 11/12/2019 07:33:00 AM EDT [facility] Value Range Interpretation Description Data Sup porting Code Source(s) Document(s ) Lymphocytes/10 10.8 % [place] 0 leukocytes Hospital in Blood by Automated count ID Date Data Source [id number] 11/12/2019 07:33:00 AM EDT [facility] Value Range Interpretation Description Data Sup porting Code Source(s) Document(s ) Neutrophils/10 83.7 % [place] 0 leukocytes Hospital in Blood by Automated count ID Date Data Source [id number] 11/12/2019 07:33:00 AM EDT [facility] Value Range Interpretation Description Data Sup porting Code Source(s) Document(s ) Platelet mean 10.9 fL [place] volume Hospital [Entitic volume] in Blood by Automated count ID Date Data Source [id number] 11/12/2019 07:33:00 AM EDT [facility] Value Range Interpretation Description Data Sup porting Code Source(s) Document(s ) Platelets 248 [place] [#/volume] in 10*3/uL Hospital Blood by Automated count ID Date Data Source [id number] 11/12/2019 07:33:00 AM EDT [facility] Value Range Interpretation Description Data Sup porting Code Source(s) Document(s ) Erythrocyte 14.1 % [place] distribution Hospital width [Ratio] by Automated count ID Date Data Source [id number] 11/12/2019 07:33:00 AM [facility] Value Range Interpretation Description Data Sup porting Code Source(s) Document(s ) Erythrocyte mean 32.5 [place] corpuscular g/dL Hospital hemoglobin concentration [Mass/volume] by Automated count ID Date Data Source [id number] 11/12/2019 [facility] Interpretation Description Data Sup porting Code Source(s) Document(s ) Erythrocyte 26.6 pg [facility] corpuscular hemoglobin [Entitic mass] by Automated count ID Date Data Source [id number] 11/12/2019 07:33:00 AM [facility] Value Range Interpretation Description Data Sup porting Code Source(s) Document(s ) Erythrocyte 81.8 fL [facility] corpuscular volume [Entitic volume] by Automated count ID Date Data Source [id number] 11/12/2019 07:33:00 AM [facility] Value Range Interpretation Description Data Sup porting Code Source(s) Document(s ) Hematocrit 38.2 % [place] [Volume Hospital Fraction] of Blood by Automated count ID Date Data Source [id number] 11/12/2019 07:33:00 AM [facility] Value Range Interpretation Description Data Sup porting Code Source(s) Document(s ) Hemoglobin 12.4 g/dL [place] [Mass/volume] Hospital in Blood ID Date Data Source [id number] 11/12/2019 07:33:00 AM [facility] Value Range Interpretation Description Data Sup porting Code Source(s) Document(s ) Erythrocytes 4.67 [place] [#/volume] in 10*6/uL Hospital Blood by Automated count ID Date Data Source [id number] 11/12/2019 07:33:00 AM EDT Name Value Range Interpretation Description Data Sup porting Code Source(s) Document(s ) Leukocytes 12.7 [place] [#/volume] in 10*3/uL Hospital Blood by Automated count ID Date Data Source [id number] 11/12/2019 07:05:00 AM EDT Name Value Range Interpretation Description Data Sup porting Code Source(s) Document(s ) Choriogonadotropin POSITIVE White ( test) [place] [facility] ID Date Data Source Microbiology.[id number] 07/20/2019 05:02:00 PM EDT [facility] 400 Name Value Range Interpretation Code Description Data Gabrielle rce(s) Supporting Document(s ) UNK <item><content [facility] styleCode="Bold"> Medical Cent er Culture Report </content>
<t able><tbody><tr>< td>Specimen Number:</td><td>[id number]</td></tr ><tr><td>Sample Collection Date/Time: </td><td>07/20/2019 5:02 PM</td></tr><tr>< td>Specimen Source:</td><td>B LOOD</td></tr><tr ><td>Blood Culture:</td><td> Collection Plate Date: 07/20/2019 17:09 </td></tr><tr><td >Culture Status:</td><td>P reliminary </td></tr><tr><td >Culture Report:</td><td>C ulture in progress </td></tr></tbody ></table></item> UNK <item><content [facility] styleCode="Bold"> Medical Cent er Culture Status </content>
<t able><tbody><tr>< td>Specimen Number:</td><td>[id number]</td></tr ><tr><td>Sample Collection Date/Time: </td><td>07/20/2019 5:02 PM</td></tr><tr>< td>Specimen Source:</td><td>B LOOD</td></tr><tr ><td>Blood Culture:</td><td> Collection Plate Date: 07/20/2019 17:09 </td></tr><tr><td >Culture Report:</td><td>C ulture in progress </td></tr><tr><td >Culture Status:</td><td>P reliminary </td></tr></tbody ></table></item> ID Date Data Source Liver 07/20/2019 05:02:00 PM EDT [facility] Profile.[id number] Name Value Range Interpretation Description Data Sup porting Code Source(s) Document(s ) Alkaline 38-126 <content [facility] phosphatase styleCode="Bold"> Andrew [Enzymatic Alkaline Medical activity/volume] Phosphatase (ALP) Cente r in Serum or Plasma </content>57 IU/L<content styleCode="Italic s"> (38-126 IU/L)</content> Aspartate 14-36 <content [facility] aminotransferase styleCode="Bold"> Jude hs [Enzymatic Aspartate Medical activity/volume] Aminotransferase Center in Serum or Plasma (AST) </content>25 IU/L<content styleCode="Italic s"> (14-36 IU/L)</content> Albumin 3.5-5.0 Above high <content [facility] [Mass/volume] in normal styleCode="Bold"> Jude hs Serum or Plasma Albumin Medical </content>5.1 Center G/DL H<content styleCode="Italic s"> (3.5-5.0 G/DL)</content> Alanine 7-30 <content [facility] aminotransferase styleCode="Bold"> Jude hs [Enzymatic Alanine Medical activity/volume] Aminotransferase Center in Serum or Plasma (ALT) </content>17 IU/L<content styleCode="Italic s"> (7-30 IU/L)</content> Bilirubin.total 0.2-1.3 <content [facility] [Mass/volume] in styleCode="Bold"> Jude hs Serum or Plasma Bilirubin Total Medical </content>0.8 Center MG/DL<content styleCode="Italic s"> (0.2-1.3 MG/DL)</content> ID Date Data Source HematologyRou.[id number] 07/20/2019 05:02:00 PM EDT [facility] 0400 Name Value Range Interpretation Description Data Sup porting Code Source(s) Document(s ) Leukocytes 4.4-11.0 Above high <content [facility] [#/volume] in normal styleCode="Bold Andrew Blood by ">White Blood Medical Automated count Cell Count Center </content>11.70 KCUMM H<content styleCode="Ital ics"> (4.4-11.0 KCUMM)</content > Hematocrit 36.0-46. <content [facility] [Volume 0 styleCode="Bold Andrew Fraction] of ">Hematocrit Medical Blood by </content>39.4 Center Automated count %<content styleCode="Ital ics"> (36.0-46.0 %)</content> Erythrocyte mean 26.0-34. <content [facility] corpuscular 0 styleCode="Bold Andrew hemoglobin ">Mean Medical [Entitic mass] Corposcular Center by Automated Hemoglobin count </content>26.7 PG<content styleCode="Ital ics"> (26.0-34.0 PG)</content> Erythrocytes 4.0-5.1 <content [facility] [#/volume] in styleCode="Bold Andrew Blood by ">Red Blood Medical Automated count Cell Count Center </content>4.80 MCUMM<content styleCode="Ital ics"> (4.0-5.1 MCUMM)</content > Hemoglobin 12.3-16. <content [facility] [Mass/volume] in 0 styleCode="Bold Andrew Blood ">Hemoglobin Medical </content>12.8 Center G/DL<content styleCode="Ital ics"> (12.3-16.0 G/DL)</content> Erythrocyte mean 80.0-100 <content [facility] corpuscular .0 styleCode="Bold Andrew volume [Entitic ">Mean Medical volume] by Corpuscular Center Automated count Volume </content>82.1 FL<content styleCode="Ital ics"> (80.0-100.0 FL)</content> Platelet mean 8.0-11.0 Above high <content [facility] volume [Entitic normal styleCode="Bold Andrew volume] in Blood ">Mean Platelet Medical by Automated Volume Center count </content>12.0 FL H<content styleCode="Ital ics"> (8.0-11.0 FL)</content> Erythrocyte mean 32.0-37. <content [facility] corpuscular 0 styleCode="Bold Andrew hemoglobin ">Mean Corpus. Medical concentration Hgb Center [Mass/volume] by Concentration Automated count (MCHC) </content>32.5 G/DL<content styleCode="Ital ics"> (32.0-37.0 G/DL)</content> UNK 0 <content Saint styleCode="Bold Andrew ">Nucleated Red Medical Blood Cell Center </content>0.0 /100<content styleCode="Ital ics"> (0 /100)</content> Platelets 130-400 <content Saint [#/volume] in styleCode="Bold Andrew Blood by ">Platelet Medical Automated count Count Center </content>254 KCUMM<content styleCode="Ital ics"> (130-400 KCUMM)</content > Erythrocyte 11.5-14. <content [facility] distribution 5 styleCode="Bold Andrew width [Ratio] by ">Red Cell Medical Automated count Distribution Center Width </content>13.3 %<content styleCode="Ital ics"> (11.5-14.5 %)</content> UNK 0.0 <content Saint styleCode="Bold Andrew ">Nucleated Red Medical Blood Cell Center Count </content>0.00 KCUMM<content styleCode="Ital ics"> (0.0 KCUMM)</content > ID Date Data Source GFR(Creatinine).[id number] 07/20/2019 05:02:00 PM EDT [facility] 0-0400 Name Value Range Interpretation Code Description Data Gabrielle rce(s) Supporting Document(s ) UNK > 60 <content [facility] styleCode="Bold"> Medical Cent er EGFR </content>159 GFR<content styleCode="Italic s"> (> 60 GFR)</content> ID Date Data Source WALLACE.[id number] 07/20/2019 05:02:00 PM EDT [facility] -0400 Name Value Range Interpretation Description Data Sup porting Code Source(s) Document(s ) UNK >= 1.0 <content [facility] styleCode="Bold Medical ">AG Ratio Center </content>1.4 <content styleCode="Ital ics"> (>= 1.0 )</content> UNK 2.3-3.5 Above high normal <content [place] styleCode="Bold Medical ">Globulin Center </content>3.6 G/DL H<content styleCode="Ital ics"> (2.3-3.5 G/DL)</content> Protein 6.3-8.2 Above high normal <content [place] [Mass/volum styleCode="Bold Medical e] in Serum ">Total Protein Center or Plasma </content>8.7 G/DL H<content styleCode="Ital ics"> (6.3-8.2 G/DL)</content> ID Date Data Source [facility].[id number] 07/20/2019 05:02:00 PM EDT [facility] Name Value Range Interpretation Description Data Sup porting Code Source(s) Document(s ) Carbon dioxide, 22-30 Above high <content [facility] total normal styleCode="Bold"> Andrew [Moles/volume] in Carbon Dioxide Medical Serum or Plasma </content>31 Center MEQ/L H<content styleCode="Italic s"> (22-30 MEQ/L)</content> Chloride 98-107 <content [facility] [Moles/volume] in styleCode="Bold"> [place] phs Serum or Plasma Chloride Medical </content>101 Center MEQ/L<content styleCode="Italic s"> (98-107 MEQ/L)</content> Potassium 3.5-5.3 <content [facility] [Moles/volume] in styleCode="Bold"> Sams[place] phs Serum or Plasma Potassium Medical </content>3.9 Center MEQ/L<content styleCode="Italic s"> (3.5-5.3 MEQ/L)</content> UNK 7-17 <content [facility] styleCode="Bold"> Andrew BUN </content>8 Medical MG/DL<content Center styleCode="Italic s"> (7-17 MG/DL)</content> Sodium 137-145 <content [facility] [Moles/volume] in styleCode="Bold"> [place] phs Serum or Plasma Sodium Medical </content>140 Center MEQ/L<content styleCode="Italic s"> (137-145 MEQ/L)</content> Calcium 8.4-10. <content [facility] [Mass/volume] in 2 styleCode="Bold"> Jude hs Serum or Plasma Calcium Medical </content>10.1 Center MG/DL<content styleCode="Italic s"> (8.4-10.2 MG/DL)</content> Creatinine 0.5-1.3 <content [facility] [Mass/volume] in styleCode="Bold"> Jude hs Serum or Plasma Creatinine Medical </content>0.6 Center MG/DL<content styleCode="Italic s"> (0.5-1.3 MG/DL)</content> UNK > 60 <content [facility] styleCode="Bold"> Andrew EGFR Medical </content>159 Center GFR<content styleCode="Italic s"> (> 60 GFR)</content> Glucose 74-106 <content [facility] [Mass/volume] in styleCode="Bold"> Jude hs Serum or Plasma Glucose Medical </content>90 Center MG/DL<content styleCode="Italic s"> (74-106 MG/DL)</content> Aspartate 14-36 <content [facility] aminotransferase styleCode="Bold"> Jude hs [Enzymatic Aspartate Medical activity/volume] Aminotransferase Center in Serum or Plasma (AST) </content>25 IU/L<content styleCode="Italic s"> (14-36 IU/L)</content> Alanine 7-30 <content [facility] aminotransferase styleCode="Bold"> Jude hs [Enzymatic Alanine Medical activity/volume] Aminotransferase Center in Serum or Plasma (ALT) </content>17 IU/L<content styleCode="Italic s"> (7-30 IU/L)</content> Bilirubin.total 0.2-1.3 <content [facility] [Mass/volume] in styleCode="Bold"> Jude hs Serum or Plasma Bilirubin Total Medical </content>0.8 Center MG/DL<content styleCode="Italic s"> (0.2-1.3 MG/DL)</content> Albumin 3.5-5.0 Above high <content [facility] [Mass/volume] in normal styleCode="Bold"> Jude hs Serum or Plasma Albumin Medical </content>5.1 Center G/DL H<content styleCode="Italic s"> (3.5-5.0 G/DL)</content> Alkaline 38-126 <content [facility] phosphatase styleCode="Bold"> [facility] [Enzymatic Alkaline Medical activity/volume] Phosphatase (ALP) Cente r in Serum or Plasma </content>57 IU/L<content styleCode="Italic s"> (38-126 IU/L)</content> ID Date Data Source Microbiology.[id number] 07/20/2019 04:30:00 PM EDT [facility] 400 Name Value Range Interpretation Code Description Data Gabrielle rce(s) Supporting Document(s ) UNK <item><content [facility] styleCode="Bold"> Medical Cent er Culture Report </content>
<t able><tbody><tr>< td>Specimen Number:</td><td>[id number]</td></tr ><tr><td>Sample Collection Date/Time: </td><td>07/20/2019 4:30 PM</td></tr><tr>< td>Specimen Source:</td><td>B LOOD</td></tr><tr ><td>Blood Culture:</td><td> Collection Plate Date: 07/20/2019 17:10 </td></tr><tr><td >Culture Status:</td><td>P reliminary </td></tr><tr><td >Culture Report:</td><td>C ulture in progress </td></tr></tbody ></table></item> UNK <item><content [facility] styleCode="Bold"> Medical Cent er Culture Status </content>
<t able><tbody><tr>< td>Specimen Number:</td><td>[id number]</td></tr ><tr><td>Sample Collection Date/Time: </td><td>07/20/2019 4:30 PM</td></tr><tr>< td>Specimen Source:</td><td>B LOOD</td></tr><tr ><td>Culture Report:</td><td>C ulture in progress </td></tr><tr><td >Culture Status:</td><td>P reliminary </td></tr><tr><td >Blood Culture:</td><td> Collection Plate Date: 07/20/2019 17:10 </td></tr></tbody ></table></item> ID Date Data Source [id number] 06/09/2019 02:41:00 PM EST NEXTG EN ([facility] [id number] [place]) Name Value Range Interpretation Code Description Data Gabrielle rce(s) Supporting Document(s ) 245.02 <= 5 Above high normal QUANT BHCG NEXTGEN ([facility]) Concentrations of hCG measured in sample s from apparently healthy,non- individuals were determined to be <5.0 m IU/mL. According toliterature, hCG results greater than or equal to 25 mIU/mL are c onsideredpositive.The concentration of hCG in maternal serum rises rapidly in earlypre gnancy. hCG levels less than 25 mIU/mL do not exclude . Afurther sample shoul d be tested after 48 hours if is suspected.

ID Date Data Source [id number] 06/09/2019 02:41:00 PM EST NEXTG EN ([facility] [id number]) Name Value Range Interpretation Code Description Data Gabrielle rce(s) Supporting Document(s ) 4.35 MCUMM 4.0-5.1 RBC [facility] ([facility]) 11.7 G/DL 12.3-16.0 Below low normal HGB [facility] ([facility]) 12.22 4.4-11.0 Above high normal WBC [facility] 35.9 % 36.0-46.0 Below low normal HCT [facility] ([facility]) 32.6 G/DL 32.0-37.0 MCHC [facility] ([facility]) 26.9 PG 26.0-34.0 MCH [facility]) 82.5 FL 80.0-100.0 MCV [facility] ([facility]) 297 KCUMM 130-400 PLT [facility] ([facility]) 14.0 % 11.5-14.5 RDW [facility]) 12.1 FL 8.0-11.0 Above high normal MPV [facility] ([facility]) 0.00 KCUMM 0.0 NRBC ABS# [facility] ([facility]) 0.0 /100 0 NRBC% [facility] ([facility]) New parameters included in the report o f automated CBCNRBC(%/#) Is a direct count of Nucleated Red Blood cell, and will b ereported with every CBC count. WBC will automatically be corrected withthe prese nce of NRBC.

ID Date Data Source Urinalysis.[id number] 06/02/2019 02:58:00 PM EST [facility] 0 Name Value Range Interpretation Description Data Sup porting Code Source(s) Document(s ) UNK CLEAR <content Saint styleCode="Nadia Andrew d">Urine Medical Clarity Center </content>LUPE R <content styleCode="Destiny lics"> (CLEAR )</content> Color of Urine YELLOW <content [facility] styleCode="Nadia Andrew d">Color, Medical Urine Center </content>YELL OW <content styleCode="Destiny lics"> (YELLOW )</content> Glucose NEGATIVE <content [facility] [Mass/volume] styleCode="Nadia Andrew in Urine by d">Urine Medical Test strip Glucose Center </content>NEGA TIVE MG/DL<content styleCode="Destiny lics"> (NEGATIVE MG/DL)</conten t> UNK NEGATIVE <content Saint styleCode="Nadia Andrew d">Urine Medical Bilirubin Center </content>NEGA TIVE <content styleCode="Destiny lics"> (NEGATIVE )</content> Specific 1.015-1.02 <content [facility] gravity of 5 styleCode="Nadia Shays Urine by Test d">Urine Medical strip Specific Center [place] </content>1.02 0 <content styleCode="Destiny lics"> (1.015-1.025 )</content> Ketones NEGATIVE <content [facility] [Mass/volume] styleCode="Nadia Andrew in Urine by d">Urine Medical Test strip Ketone Center </content>NEGA TIVE MG/DL<content styleCode="Destiny lics"> (NEGATIVE MG/DL)</conten t> pH of Urine by 4.5-8.0 <content Saint Test strip styleCode="Nadia Andrew d">Urine pH Medical </content>7.0 Center <content styleCode="Destiny lics"> (4.5-8.0 )</content> Protein NEGATIVE <content [facility] [Mass/volume] styleCode="Nadia Andrew in Urine by d">Urine Medical Test strip Protein Center </content>NEGA TIVE MG/DL<content styleCode="Destiny lics"> (NEGATIVE MG/DL)</conten t> Hemoglobin NEGATIVE <content [facility] [Presence] in styleCode="Nadia Morales Urine by Test d">Urine Blood Medical strip </content>LARG Center E <content styleCode="Destiny lics"> (NEGATIVE )</content> Leukocyte NEGATIVE <content Saint esterase styleCode="Nadia Morales [Presence] in d">Urine Medical Urine by Test Leukocyte Center strip </content>NEGA TIVE <content styleCode="Destiny lics"> (NEGATIVE )</content> Urobilinogen 0.2-1.0 <content Saint [Units/volume] styleCode="Nadia Morales in Urine by d">Urine Medical Test strip Urobilinogen Center </content>0.2 MG/DL<content styleCode="Destiny lics"> (0.2-1.0 MG/DL)</conten t> Nitrite NEGATIVE <content [facility] [Presence] in styleCode="Nadia Morales Urine by Test d">Urine Medical strip Nitrite Center </content>NEGA TIVE <content styleCode="Destiny lics"> (NEGATIVE )</content> UNK NONE SEEN <content Saint styleCode="Nadia Shays d">Epithelial Medical Cell Center </content>2-5 HPF<content styleCode="Destiny lics"> (NONE SEEN HPF)</content> UNK 0-3 <content Saint styleCode="Nadia Andrew d">Urine White Medical Blood Cell Center </content>0-3 HPF<content styleCode="Destiny lics"> (0-3 HPF)</content> UNK 0-3 <content Saint styleCode="Nadia Andrew d">Urine Red Medical Blood Cell Center </content>20 - 50 HPF<content styleCode="Destiny lics"> (0-3 HPF)</content> ID Date Data Source Liver 06/02/2019 02:56:00 PM EST [facility] Profile.[id number] Name Value Range Interpretation Description Data Sup porting Code Source(s) Document(s ) Aspartate 14-36 <content [facility] aminotransferase styleCode="Bold"> Jude hs [Enzymatic Aspartate Medical activity/volume] Aminotransferase Center in Serum or Plasma (AST) </content>21 IU/L<content styleCode="Italic s"> (14-36 IU/L)</content> Alanine 7-30 <content [facility] aminotransferase styleCode="Bold"> Jude hs [Enzymatic Alanine Medical activity/volume] Aminotransferase Center in Serum or Plasma (ALT) </content>18 IU/L<content styleCode="Italic s"> (7-30 IU/L)</content> Alkaline 38-126 <content [facility] phosphatase styleCode="Bold"> Andrew [Enzymatic Alkaline Medical activity/volume] Phosphatase (ALP) Cente r in Serum or Plasma </content>44 IU/L<content styleCode="Italic s"> (38-126 IU/L)</content> UNK 0.0-0.3 <content [facility] styleCode="Bold"> Andrew Bilirubin, Direct Medical </content>< 0.2 Center MG/DL<content styleCode="Italic s"> (0.0-0.3 MG/DL)</content> Albumin 3.5-5.0 <content [facility] [Mass/volume] in styleCode="Bold"> Jude hs Serum or Plasma Albumin Medical </content>4.5 Center G/DL<content styleCode="Italic s"> (3.5-5.0 G/DL)</content> Bilirubin.total 0.2-1.3 <content [facility] [Mass/volume] in styleCode="Bold"> Jude hs Serum or Plasma Bilirubin Total Medical </content>0.4 Center MG/DL<content styleCode="Italic s"> (0.2-1.3 MG/DL)</content> ID Date Data Source HematologyRou.[id number] 06/02/2019 02:56:00 PM [facility] 0500 Name Value Range Interpretation Description Data Sup porting Code Source(s) Document(s ) Leukocytes 4.4-11.0 Above high <content Saint [#/volume] in normal styleCode="Bold [facility] Blood by ">White Blood Medical Automated count Cell Count Center </content>11.76 KCUMM H<content styleCode="Ital ics"> (4.4-11.0 KCUMM)</content > Erythrocytes 4.0-5.1 <content Saint [#/volume] in styleCode="Bold Andrew Blood by ">Red Blood Medical Automated count Cell Count Center </content>4.14 MCUMM<content styleCode="Ital ics"> (4.0-5.1 MCUMM)</content > Erythrocyte mean 26.0-34. <content [facility] corpuscular 0 styleCode="Bold Andrew hemoglobin ">Mean Medical [Entitic mass] Corposcular Center by Automated Hemoglobin count </content>27.1 PG<content styleCode="Ital ics"> (26.0-34.0 PG)</content> Erythrocyte mean 80.0-100 <content [facility] corpuscular .0 styleCode="Bold Andrew volume [Entitic ">Mean Medical volume] by Corpuscular Center Automated count Volume </content>82.1 FL<content styleCode="Ital ics"> (80.0-100.0 FL)</content> Erythrocyte mean 32.0-37. <content [facility] corpuscular 0 styleCode="Bold Andrew hemoglobin ">Mean Corpus. Medical concentration Hgb Center [Mass/volume] by Concentration Automated count (MCHC) </content>32.9 G/DL<content styleCode="Ital ics"> (32.0-37.0 G/DL)</content> Hematocrit 36.0-46. Below low normal <content [facility] [Volume 0 styleCode="Bold Andrew Fraction] of ">Hematocrit Medical Blood by </content>34.0 Center Automated count % L<content styleCode="Ital ics"> (36.0-46.0 %)</content> Hemoglobin 12.3-16. Below low normal <content [facility] [Mass/volume] in 0 styleCode="Bold Andrew Blood ">Hemoglobin Medical </content>11.2 Center G/DL L<content styleCode="Ital ics"> (12.3-16.0 G/DL)</content> Platelets 130-400 <content Saint [#/volume] in styleCode="Bold Andrew Blood by ">Platelet Medical Automated count Count Center </content>278 KCUMM<content styleCode="Ital ics"> (130-400 KCUMM)</content > Neutrophils 36-66 Above high <content Saint [#/volume] in normal styleCode="Bold Andrew Blood by ">Neutrophil Medical Automated count </content>74.8 Center % H<content styleCode="Ital ics"> (36-66 %)</content> Platelet mean 8.0-11.0 Above high <content [facility] volume [Entitic normal styleCode="Bold Andrew volume] in Blood ">Mean Platelet Medical by Automated Volume Center count </content>11.2 FL H<content styleCode="Ital ics"> (8.0-11.0 FL)</content> Erythrocyte 11.5-14. <content [facility] distribution 5 styleCode="Bold Andrew width [Ratio] by ">Red Cell Medical Automated count Distribution Center Width </content>13.3 %<content styleCode="Ital ics"> (11.5-14.5 %)</content> UNK 1.6-7.3 Above high <content Saint normal styleCode="Bold Andrew ">Neutrophil Medical Count Center </content>8.79 KCUMM H<content styleCode="Ital ics"> (1.6-7.3 KCUMM)</content > Lymphocytes 24.0-44. Below low normal <content [facility] [#/volume] in 0 styleCode="Bold Andrew Blood by ">Lymphocyte Medical Automated count </content>15.4 Center % L<content styleCode="Ital ics"> (24.0-44.0 %)</content> UNK 1.0-4.8 <content Saint styleCode="Bold Andrew ">Lymphocyte Medical Count Center </content>1.81 KCUMM<content styleCode="Ital ics"> (1.0-4.8 KCUMM)</content > Monocytes 3.0-10.0 <content Saint [#/volume] in styleCode="Bold Andrew Blood by ">Monocyte Medical Automated count </content>5.5 Center %<content styleCode="Ital ics"> (3.0-10.0 %)</content> UNK 0.2-0.9 <content Saint styleCode="Bold Andrew ">Monocyte Medical Count Center </content>0.65 KCUMM<content styleCode="Ital ics"> (0.2-0.9 KCUMM)</content > Basophils 0.0-1.0 <content Saint [#/volume] in styleCode="Bold Andrew Blood by ">Basophil Medical Automated count </content>0.3 Center %<content styleCode="Ital ics"> (0.0-1.0 %)</content> UNK 0.0-0.6 <content Saint styleCode="Bold Andrew ">Eosinophil Medical Count Center </content>0.40 KCUMM<content styleCode="Ital ics"> (0.0-0.6 KCUMM)</content > Eosinophils 0-5.0 <content Saint [#/volume] in styleCode="Bold Andrew Blood by ">Eosinophil Medical Automated count </content>3.4 Center %<content styleCode="Ital ics"> (0-5.0 %)</content> UNK 0-0.1 <content Saint styleCode="Bold Andrew ">Immature Medical Granulocyte Center Count </content>0.07 KCUMM<content styleCode="Ital ics"> (0-0.1 KCUMM)</content > UNK 0 <content Saint styleCode="Bold Andrew ">Nucleated Red Medical Blood Cell Center </content>0.0 /100<content styleCode="Ital ics"> (0 /100)</content> UNK 0.0 <content Saint styleCode="Bold Andrew ">Nucleated Red Medical Blood Cell Center Count </content>0.00 KCUMM<content styleCode="Ital ics"> (0.0 KCUMM)</content > UNK 0.0-0.3 <content Saint styleCode="Bold Andrew ">Basophil Medical Count Center </content>0.04 KCUMM<content styleCode="Ital ics"> (0.0-0.3 KCUMM)</content > UNK < 1 <content Saint styleCode="Bold Andrew ">Immature Medical Granulocyte Center Ratio </content>0.6 %<content styleCode="Ital ics"> (< 1 %)</content> ID Date Data Source GFR(Creatinine).[id number] 06/02/2019 02:56:00 PM EST [facility] 0-0500 Name Value Range Interpretation Code Description Data Gabrielle rce(s) Supporting Document(s ) UNK > 60 <content [facility] styleCode="Bold"> Medical Cent er EGFR </content>111 GFR<content styleCode="Italic s"> (> 60 GFR)</content> ID Date Data Source Coagulation 06/02/2019 02:56:00 PM [facility] ical Center Rout.[id number] EST Name Value Range Interpretation Description Data Sup porting Code Source(s) Document(s ) aPTT in 25.1-36. <content [facility] Platelet poor 5 styleCode="Bold" Andrew plasma by >Partial Medical Coagulation Thromboplastin Center assay Time </content>28.8 SEC<content styleCode="Itali cs"> (25.1-36.5 SEC)</content> INR in 0.80-1.2 <content [facility] Platelet poor 0 styleCode="Bold" Andrew plasma by >INR Medical Coagulation </content>1.12 Center assay #<content styleCode="Itali cs"> (0.80-1.20 #)</content> UNK 9.0-13.0 <content Saint styleCode="Bold" Andrew >Protime Medical </content>12.4 Center SEC<content styleCode="Itali cs"> (9.0-13.0 SEC)</content> ID Date Data Source BMP.[id number] 06/02/2019 02:56:00 PM EST [facility] Name Value Range Interpretation Description Data Sup porting Code Source(s) Document(s ) Sodium 137-145 <content [facility] [Moles/volume] in styleCode="Bold"> Samson phs Serum or Plasma Sodium Medical </content>142 Center MEQ/L<content styleCode="Italic s"> (137-145 MEQ/L)</content> Chloride 98-107 <content [facility] [Moles/volume] in styleCode="Bold"> [place] phs Serum or Plasma Chloride Medical </content>105 Center MEQ/L<content styleCode="Italic s"> (98-107 MEQ/L)</content> Potassium 3.5-5.3 <content [facility] [Moles/volume] in styleCode="Bold"> Samson phs Serum or Plasma Potassium Medical </content>4.0 Center MEQ/L<content styleCode="Italic s"> (3.5-5.3 MEQ/L)</content> Creatinine 0.5-1.3 <content [facility] [Mass/volume] in styleCode="Bold"> Jude hs Serum or Plasma Creatinine Medical </content>0.7 Center MG/DL<content styleCode="Italic s"> (0.5-1.3 MG/DL)</content> Carbon dioxide, 22-30 <content [facility] total styleCode="Bold"> Andrew [Moles/volume] in Carbon Dioxide Medical Serum or Plasma </content>28 Center MEQ/L<content styleCode="Italic s"> (22-30 MEQ/L)</content> Glucose 74-106 <content [facility] [Mass/volume] in styleCode="Bold"> Jude hs Serum or Plasma Glucose Medical </content>88 Center MG/DL<content styleCode="Italic s"> (74-106 MG/DL)</content> UNK 7-17 Below low <content [facility] normal styleCode="Bold"> Andrew BUN </content>5 Medical MG/DL L<content Center styleCode="Italic s"> (7-17 MG/DL)</content> UNK > 60 <content [facility] styleCode="Bold"> Andrew EGFR Medical </content>111 Center GFR<content styleCode="Italic s"> (> 60 GFR)</content> Calcium 8.4-10. <content [facility] [Mass/volume] in 2 styleCode="Bold"> Jude hs Serum or Plasma Calcium Medical </content>10.0 Center MG/DL<content styleCode="Italic s"> (8.4-10.2 MG/DL)</content> Alanine 7-30 <content [facility] aminotransferase styleCode="Bold"> Jude hs [Enzymatic Alanine Medical activity/volume] Aminotransferase Center in Serum or Plasma (ALT) </content>18 IU/L<content styleCode="Italic s"> (7-30 IU/L)</content> Aspartate 14-36 <content [facility] aminotransferase styleCode="Bold"> Jude hs [Enzymatic Aspartate Medical activity/volume] Aminotransferase Center in Serum or Plasma (AST) </content>21 IU/L<content styleCode="Italic s"> (14-36 IU/L)</content> Albumin 3.5-5.0 <content [facility] [Mass/volume] in styleCode="Bold"> Jude hs Serum or Plasma Albumin Medical </content>4.5 Center G/DL<content styleCode="Italic s"> (3.5-5.0 G/DL)</content> Bilirubin.total 0.2-1.3 <content [facility] [Mass/volume] in styleCode="Bold"> Jude hs Serum or Plasma Bilirubin Total Medical </content>0.4 Center MG/DL<content styleCode="Italic s"> (0.2-1.3 MG/DL)</content> Alkaline 38-126 <content [facility] phosphatase styleCode="Bold"> Andrew [Enzymatic Alkaline Medical activity/volume] Phosphatase (ALP) Cente r in Serum or Plasma </content>44 IU/L<content styleCode="Italic s"> (38-126 IU/L)</content> ID Date Data Source Liver 05/08/2019 02:00:00 PM EST [facility] Profile.[id number] Name Value Range Interpretation Description Data Sup porting Code Source(s) Document(s ) Aspartate 14-36 <content [facility] aminotransferase styleCode="Bold"> Jude hs [Enzymatic Aspartate Medical activity/volume] Aminotransferase Center in Serum or Plasma (AST) </content>21 IU/L<content styleCode="Italic s"> (14-36 IU/L)</content> Bilirubin.total 0.2-1.3 Below low <content [facility] [Mass/volume] in normal styleCode="Bold"> Jude hs Serum or Plasma Bilirubin Total Medical </content>< 0.2 Center MG/DL L<content styleCode="Italic s"> (0.2-1.3 MG/DL)</content> Alanine 7-30 <content [facility] aminotransferase styleCode="Bold"> Jude hs [Enzymatic Alanine Medical activity/volume] Aminotransferase Center in Serum or Plasma (ALT) </content>15 IU/L<content styleCode="Italic s"> (7-30 IU/L)</content> Albumin 3.5-5.0 <content [facility] [Mass/volume] in styleCode="Bold"> Jude hs Serum or Plasma Albumin Medical </content>4.1 Center G/DL<content styleCode="Italic s"> (3.5-5.0 G/DL)</content> Alkaline 38-126 <content [facility] phosphatase styleCode="Bold"> Andrew [Enzymatic Alkaline Medical activity/volume] Phosphatase (ALP) Cente r in Serum or Plasma </content>40 IU/L<content styleCode="Italic s"> (38-126 IU/L)</content> UNK 0.0-0.3 <content Saint styleCode="Bold"> Andrew Bilirubin, Direct Medical </content>< 0.2 Center MG/DL<content styleCode="Italic s"> (0.0-0.3 MG/DL)</content> ID Date Data Source HematologyRou.[id number] 05/08/2019 02:00:00 PM [facility] [facility] 0500 Name Value Range Interpretation Description Data Sup porting Code Source(s) Document(s ) Leukocytes 4.4-11.0 <content Saint [#/volume] in styleCode="Bold Andrew Blood by ">White Blood Medical Automated count Cell Count Center </content>10.67 KCUMM<content styleCode="Ital ics"> (4.4-11.0 KCUMM)</content > Erythrocytes 4.0-5.1 <content Saint [#/volume] in styleCode="Bold Andrew Blood by ">Red Blood Medical Automated count Cell Count Center </content>4.13 MCUMM<content styleCode="Ital ics"> (4.0-5.1 MCUMM)</content > Hemoglobin 12.3-16. Below low normal <content [facility] [Mass/volume] in 0 styleCode="Bold Andrew Blood ">Hemoglobin Medical </content>11.3 Center G/DL L<content styleCode="Ital ics"> (12.3-16.0 G/DL)</content> Hematocrit 36.0-46. Below low normal <content [facility] [Volume 0 styleCode="Bold Andrew Fraction] of ">Hematocrit Medical Blood by </content>33.6 Center Automated count % L<content styleCode="Ital ics"> (36.0-46.0 %)</content> Erythrocyte mean 32.0-37. <content [facility] corpuscular 0 styleCode="Bold Andrew hemoglobin ">Mean Corpus. Medical concentration Hgb Center [Mass/volume] by Concentration Automated count (MCHC) </content>33.6 G/DL<content styleCode="Ital ics"> (32.0-37.0 G/DL)</content> Erythrocyte mean 26.0-34. <content [facility] corpuscular 0 styleCode="Bold Andrew hemoglobin ">Mean Medical [Entitic mass] Corposcular Center by Automated Hemoglobin count </content>27.4 PG<content styleCode="Ital ics"> (26.0-34.0 PG)</content> Erythrocyte mean 80.0-100 <content [facility] corpuscular .0 styleCode="Bold Andrew volume [Entitic ">Mean Medical volume] by Corpuscular Center Automated count Volume </content>81.4 FL<content styleCode="Ital ics"> (80.0-100.0 FL)</content> Erythrocyte 11.5-14. <content [facility] distribution 5 styleCode="Bold Andrew width [Ratio] by ">Red Cell Medical Automated count Distribution Center Width </content>13.6 %<content styleCode="Ital ics"> (11.5-14.5 %)</content> Platelet mean 8.0-11.0 Above high <content Saint volume [Entitic normal styleCode="Bold Andrew volume] in Blood ">Mean Platelet Medical by Automated Volume Center count </content>11.2 FL H<content styleCode="Ital ics"> (8.0-11.0 FL)</content> Platelets 130-400 <content Saint [#/volume] in styleCode="Bold Andrew Blood by ">Platelet Medical Automated count Count Center </content>246 KCUMM<content styleCode="Ital ics"> (130-400 KCUMM)</content > UNK 0 <content Saint styleCode="Bold Andrew ">Nucleated Red Medical Blood Cell Center </content>0.0 /100<content styleCode="Ital ics"> (0 /100)</content> UNK 0.0 <content Saint styleCode="Bold Andrew ">Nucleated Red Medical Blood Cell Center Count </content>0.00 KCUMM<content styleCode="Ital ics"> (0.0 KCUMM)</content > ID Date Data Source GFR(Creatinine).[id number] 05/08/2019 02:00:00 PM [facility] 0-0500 Name Value Range Interpretation Code Description Data Gabrielle rce(s) Supporting Document(s ) UNK > 60 <content [facility] styleCode="Bold"> Medical Cent er EGFR </content>198 GFR<content styleCode="Italic s"> (> 60 GFR)</content> ID Date Data Source MRTRUNG.[id number] 05/08/2019 02:00:00 PM [facility] -0500 Name Value Range Interpretation Description Data Sup porting Code Source(s) Document(s ) Lipase 23-300 <content [facility] [Enzymatic styleCode="Bold Medical activity/vo ">Lipase Center lume] in </content>68 Serum or IU/L<content Plasma styleCode="Ital ics"> (23-300 IU/L)</content> ID Date Data Source BloodBank.[id number] 05/08/2019 02:00:00 PM [facility] Name Value Range Interpretation Code Description Data Gabrielle rce(s) Supporting Document(s ) UNK <content [facility] styleCode="Bold" Medical Cente r >RH Type </content>POSITI VE (Reference Range: not available)
UNK NEGATIVE <content [facility] styleCode="Bold" Medical Cente r >Antibody Screen </content>NEGATI VE <content styleCode="Itali cs"> (NEGATIVE )</content> UNK <content [facility] styleCode="Bold" Medical Cente r >Blood Type </content>GROUP A (Reference Range: not available)
ID Date Data Source [facility].[id number] 05/08/2019 02:00:00 PM EST [facility] Center Name Value Range Interpretation Description Data Sup porting Code Source(s) Document(s ) Chloride 98-107 <content [facility] [Moles/volume] in styleCode="Bold"> Samson phs Serum or Plasma Chloride Medical </content>106 Center MEQ/L<content styleCode="Italic s"> (98-107 MEQ/L)</content> Sodium 137-145 <content [facility] [Moles/volume] in styleCode="Bold"> Samson phs Serum or Plasma Sodium Medical </content>140 Center MEQ/L<content styleCode="Italic s"> (137-145 MEQ/L)</content> Carbon dioxide, 22-30 <content [facility] total styleCode="Bold"> Andrew [Moles/volume] in Carbon Dioxide Medical Serum or Plasma </content>24 Center MEQ/L<content styleCode="Italic s"> (22-30 MEQ/L)</content> Potassium 3.5-5.3 <content [facility] [Moles/volume] in styleCode="Bold"> Samson phs Serum or Plasma Potassium Medical </content>4.1 Center MEQ/L<content styleCode="Italic s"> (3.5-5.3 MEQ/L)</content> UNK 7-17 Below low <content [facility] normal styleCode="Bold"> Andrew BUN </content>4 Medical MG/DL L<content Center styleCode="Italic s"> (7-17 MG/DL)</content> Calcium 8.4-10. <content [facility] [Mass/volume] in 2 styleCode="Bold"> Jude hs Serum or Plasma Calcium Medical </content>9.6 Center MG/DL<content styleCode="Italic s"> (8.4-10.2 MG/DL)</content> UNK > 60 <content [facility] styleCode="Bold"> Andrew EGFR Medical </content>198 Center GFR<content styleCode="Italic s"> (> 60 GFR)</content> Glucose 74-106 <content [facility] [Mass/volume] in styleCode="Bold"> Jude hs Serum or Plasma Glucose Medical </content>90 Center MG/DL<content styleCode="Italic s"> (74-106 MG/DL)</content> Creatinine 0.5-1.3 <content [facility] [Mass/volume] in styleCode="Bold"> Jude hs Serum or Plasma Creatinine Medical </content>0.5 Center MG/DL<content styleCode="Italic s"> (0.5-1.3 MG/DL)</content> Alkaline 38-126 <content [facility] phosphatase styleCode="Bold"> Andrew [Enzymatic Alkaline Medical activity/volume] Phosphatase (ALP) Cente r in Serum or Plasma </content>40 IU/L<content styleCode="Italic s"> (38-126 IU/L)</content> Bilirubin.total 0.2-1.3 Below low <content [facility] [Mass/volume] in normal styleCode="Bold"> Jude hs Serum or Plasma Bilirubin Total Medical </content>< 0.2 Center MG/DL L<content styleCode="Italic s"> (0.2-1.3 MG/DL)</content> Aspartate 14-36 <content [facility] aminotransferase styleCode="Bold"> Jude hs [Enzymatic Aspartate Medical activity/volume] Aminotransferase Center in Serum or Plasma (AST) </content>21 IU/L<content styleCode="Italic s"> (14-36 IU/L)</content> Alanine 7-30 <content [facility] aminotransferase styleCode="Bold"> Jude hs [Enzymatic Alanine Medical activity/volume] Aminotransferase Center in Serum or Plasma (ALT) </content>15 IU/L<content styleCode="Italic s"> (7-30 IU/L)</content> Albumin 3.5-5.0 <content [facility] [Mass/volume] in styleCode="Bold"> Jude hs Serum or Plasma Albumin Medical </content>4.1 Center G/DL<content styleCode="Italic s"> (3.5-5.0 G/DL)</content> ID Date Data Source Urinalysis.[id number] 12/30/2017 11:05:00 PM EDT [facility] 0 Name Value Range Interpretation Description Data Sup porting Code Source(s) Document(s ) Color of Urine YELLOW <content Saint styleCode="Nadia Shays d">Color, Medical Urine Center </content>YELL OW <content styleCode="Destiny lics"> (YELLOW )</content> Glucose NEGATIVE <content [facility] [Mass/volume] styleCode="Nadia Morales in Urine by d">Urine Medical Test strip Glucose Center </content>NEGA TIVE MG/DL<content styleCode="Destiny lics"> (NEGATIVE MG/DL)</conten t> UNK NEGATIVE <content Saint styleCode="Nadia Shays d">Urine Medical Bilirubin Center </content>NEGA TIVE <content styleCode="Destiny lics"> (NEGATIVE )</content> Specific 1.015-1.02 <content [facility] gravity of 5 styleCode="Nadia Shays Urine by Test d">Urine Medical strip Specific Center [place] </content>1.02 0 NM<content styleCode="Destiny lics"> (1.015-1.025 NM)</content> UNK CLEAR <content Saint styleCode="Nadia Shays d">Urine Medical Clarity Center </content>Sl CLOUDY <content styleCode="Destiny lics"> (CLEAR )</content> Ketones NEGATIVE <content Saint [Mass/volume] styleCode="Nadia Shays in Urine by d">Urine Medical Test strip Ketone Center </content>NEGA TIVE MG/DL<content styleCode="Destiny lics"> (NEGATIVE MG/DL)</conten t> Hemoglobin NEGATIVE <content Saint [Presence] in styleCode="Nadia Morales Urine by Test d">Urine Blood Medical strip </content>TRAC Center E <content styleCode="Destiny lics"> (NEGATIVE )</content> pH of Urine by 4.5-8.0 <content Saint Test strip styleCode="Nadia Shays d">Urine pH Medical </content>5.5 Center NM<content styleCode="Destiny lics"> (4.5-8.0 NM)</content> Nitrite NEGATIVE <content Saint [Presence] in styleCode="Nadia Morales Urine by Test d">Urine Medical strip Nitrite Center </content>NEGA TIVE <content styleCode="Destiny lics"> (NEGATIVE )</content> Protein NEGATIVE <content Saint [Mass/volume] styleCode="Nadia Shays in Urine by d">Urine Medical Test strip Protein Center </content>NEGA TIVE MG/DL<content styleCode="Destiny lics"> (NEGATIVE MG/DL)</conten t> Urobilinogen 0.2-1.0 <content Saint [Units/volume] styleCode="Nadia Shays in Urine by d">Urine Medical Test strip Urobilinogen Center </content>0.2 MG/DL<content styleCode="Destiny lics"> (0.2-1.0 MG/DL)</conten t> UNK <content Saint styleCode="Nadia Andrew d">Epithelial Medical Cell Center </content>20-2 5 LPF (Reference Range: not available)<br/ > Leukocyte NEGATIVE <content Saint esterase styleCode="Nadia Shays [Presence] in d">Urine Medical Urine by Test Leukocyte Center strip </content>MODE RATE <content styleCode="Destiny lics"> (NEGATIVE )</content> UNK 0-3 <content Saint styleCode="Nadia Andrew d">Urine White Medical Blood Cell Center </content>5 - 10 HPF<content styleCode="Destiny lics"> (0-3 HPF)</content> UNK NEGATIVE <content Saint styleCode="Nadia Andrew d">Urine Medical Bacteria Center </content>MODE RATE HPF<content styleCode="Destiny lics"> (NEGATIVE HPF)</content> UNK 0-3 <content Saint styleCode="Nadia Andrew d">Urine Red Medical Blood Cell Center </content>3-5 HPF<content styleCode="Destiny lics"> (0-3 HPF)</content> ID Date Data Source Microbiology.[id number] 12/30/2017 11:05:00 PM EDT [place] [facility] 400 Name Value Range Interpretation Code Description Data Gabrielle rce(s) Supporting Document(s ) UNK <item><content [facility] styleCode="Bold">Cul Medical C enter ture Status </content>
<tabl e><tbody><tr><td>Spe cimen Number:</td><td>[id number]</td></tr><tr>< td>Sample Collection Date/Time: </td><td>12/30/2017 11:05 PM</td></tr><tr><td> Specimen Source:</td><td>URIN E</td></tr><tr><td>C ulture Status:</td><td>Leila l </td></tr><tr><td>Cu lture Report:</td><td>NO FURTHER WORKUP </td></tr><tr><td>Ur ine Culture:</td><td>Col lection Plate Date: 12/30/2017 23:30 </td></tr><tr><td>Or ganism 1:</td><td>CORYNEBAC TERIUM SPECIES </td></tr><tr><td>Or ganism 2:</td><td>COAGULASE NEGATIVE STAPHYLOCOCCUS </td></tr></tbody></ table>
<table border="2"><tbody><t r><td></td><td>1</td ><td>2</td></tr><tr> <td>Comment</td><td> </td><td></td></tr>< tr><td>Result Value</td><td>CORYNE BACTERIUM SPECIES </td><td>COAGULASE NEGATIVE STAPHYLOCOCCUS </td></tr><tr><td>Re sult Status</td><td>Final Result</td><td>Final Result</td></tr><tr> <td></td><td></td><t d></td></tr></tbody> </table></item> UNK <item><content [facility] styleCode="Bold">[facility] Medical C enter ture Report </content>
<tabl e><tbody><tr><td>Spe cimen Number:</td><td>[id number]</td></tr><tr>< td>Sample Collection Date/Time: </td><td>12/30/2017 11:05 PM</td></tr><tr><td> Specimen Source:</td><td>URIN E</td></tr><tr><td>U rine Culture:</td><td>Col lection Plate Date: 12/30/2017 23:30 </td></tr><tr><td>Cu lture Status:</td><td>Leila l </td></tr><tr><td>Cu lture Report:</td><td>NO FURTHER WORKUP </td></tr><tr><td>Or ganism 1:</td><td>CORYNEBAC TERIUM SPECIES </td></tr><tr><td>Or ganism 2:</td><td>COAGULASE NEGATIVE STAPHYLOCOCCUS </td></tr></tbody></ table>
<table border="2"><tbody><t r><td></td><td>1</td ><td>2</td></tr><tr> <td>Comment</td><td> </td><td></td></tr>< tr><td>Result Value</td><td>CORYNE BACTERIUM SPECIES </td><td>COAGULASE NEGATIVE STAPHYLOCOCCUS </td></tr><tr><td>Re sult Status</td><td>Final Result</td><td>Final Result</td></tr><tr> <td></td><td></td><t d></td></tr></tbody> </table></item> ID Date Data Source Urinalysis.[id number] 11/02/2017 12:16:00 PM EDT [facility] 0 Name Value Range Interpretation Description Data Sup porting Code Source(s) Document(s ) UNK CLEAR <content Saint styleCode="Nadia Andrew d">Urine Medical Clarity Center </content>LUPE R <content styleCode="Destiny lics"> (CLEAR )</content> Color of Urine YELLOW <content [facility] styleCode="Nadia Shays d">Color, Medical Urine Center </content>YELL OW <content styleCode="Destiny lics"> (YELLOW )</content> UNK NEGATIVE <content Saint styleCode="Nadia Shays d">Urine Medical Bilirubin Center </content>NEGA TIVE <content styleCode="Destiny lics"> (NEGATIVE )</content> Glucose NEGATIVE <content Saint [Mass/volume] styleCode="Nadia Morales in Urine by d">Urine Medical Test strip Glucose Center </content>NEGA TIVE MG/DL<content styleCode="Destiny lics"> (NEGATIVE MG/DL)</conten t> Specific 1.015-1.02 Below low normal <content [facility] gravity of 5 styleCode="Nadia Morales Urine by Test d">Urine Medical strip Specific Center [place] </content>1.01 0 NM L<content styleCode="Destiny lics"> (1.015-1.025 NM)</content> Ketones NEGATIVE <content Saint [Mass/volume] styleCode="Nadia Shays in Urine by d">Urine Medical Test strip Ketone Center </content>NEGA TIVE MG/DL<content styleCode="Destiny lics"> (NEGATIVE MG/DL)</conten t> Hemoglobin NEGATIVE <content Saint [Presence] in styleCode="Nadia Shays Urine by Test d">Urine Blood Medical strip </content>NEGA Center TIVE <content styleCode="Destiny lics"> (NEGATIVE )</content> Protein NEGATIVE <content Saint [Mass/volume] styleCode="Nadia Andrew in Urine by d">Urine Medical Test strip Protein Center </content>NEGA TIVE MG/DL<content styleCode="Destiny lics"> (NEGATIVE MG/DL)</conten t> Leukocyte NEGATIVE <content [facility] esterase styleCode="Nadia Andrew [Presence] in d">Urine Medical Urine by Test Leukocyte Center strip </content>NEGA TIVE <content styleCode="Destiny lics"> (NEGATIVE )</content> Urobilinogen 0.2-1.0 <content [facility] [Units/volume] styleCode="Nadia Shays in Urine by d">Urine Medical Test strip Urobilinogen Center </content>0.2 MG/DL<content styleCode="Destiny lics"> (0.2-1.0 MG/DL)</conten t> pH of Urine by 4.5-8.0 <content Saint Test strip styleCode="Nadia Andrew d">Urine pH Medical </content>6.5 Center NM<content styleCode="Destiny lics"> (4.5-8.0 NM)</content> Nitrite NEGATIVE <content [facility] [Presence] in styleCode="Nadia Shays Urine by Test d">Urine Medical strip Nitrite Center </content>NEGA TIVE <content styleCode="Destiny lics"> (NEGATIVE )</content> ID Date Data Source HematologyRou.[id number] 11/02/2017 12:16:00 PM EDT [facility] 0400 Name Value Range Interpretation Description Data Sup porting Code Source(s) Document(s ) Hemoglobin 12.3-16. <content [facility] [Mass/volume] in 0 styleCode="Bold Andrew Blood ">Hemoglobin Medical </content>12.3 Center G/DL<content styleCode="Ital ics"> (12.3-16.0 G/DL)</content> Leukocytes 4.4-11.0 Above high <content Saint [#/volume] in normal styleCode="Bold Andrew Blood by ">White Blood Medical Automated count Cell Count Center </content>12.62 KCUMM H<content styleCode="Ital ics"> (4.4-11.0 KCUMM)</content > Erythrocytes 4.0-5.1 <content Saint [#/volume] in styleCode="Bold Andrew Blood by ">Red Blood Medical Automated count Cell Count Center </content>4.48 MCUMM<content styleCode="Ital ics"> (4.0-5.1 MCUMM)</content > Hematocrit 36.0-46. Below low normal <content [facility] [Volume 0 styleCode="Bold Andrew Fraction] of ">Hematocrit Medical Blood by </content>35.8 Center Automated count % L<content styleCode="Ital ics"> (36.0-46.0 %)</content> Erythrocyte mean 32.0-37. <content [facility] corpuscular 0 styleCode="Bold Andrew hemoglobin ">Mean Corpus. Medical concentration Hgb Center [Mass/volume] by Concentration Automated count (MCHC) </content>34.4 G/DL<content styleCode="Ital ics"> (32.0-37.0 G/DL)</content> Erythrocyte 11.5-14. <content [facility] distribution 5 styleCode="Bold Andrew width [Ratio] by ">Red Cell Medical Automated count Distribution Center Width </content>12.9 %<content styleCode="Ital ics"> (11.5-14.5 %)</content> Erythrocyte mean 80.0-100 <content [facility] corpuscular .0 styleCode="Bold Andrew volume [Entitic ">Mean Medical volume] by Corpuscular Center Automated count Volume </content>79.9 FL<content styleCode="Ital ics"> (80.0-100.0 FL)</content> Erythrocyte mean 26.0-34. <content [facility] corpuscular 0 styleCode="Bold Andrew hemoglobin ">Mean Medical [Entitic mass] Corposcular Center by Automated Hemoglobin count </content>27.5 PG<content styleCode="Ital ics"> (26.0-34.0 PG)</content> Platelets 130-400 <content [facility] [#/volume] in styleCode="Bold Andrew Blood by ">Platelet Medical Automated count Count Center </content>239 KCUMM<content styleCode="Ital ics"> (130-400 KCUMM)</content > UNK 0.0 <content Saint styleCode="Bold Andrew ">Nucleated Red Medical Blood Cell Center Count </content>0.00 KCUMM<content styleCode="Ital ics"> (0.0 KCUMM)</content > UNK 0 <content Saint styleCode="Bold Andrew ">Nucleated Red Medical Blood Cell Center </content>0.0 /100<content styleCode="Ital ics"> (0 /100)</content> Platelet mean 8.0-11.0 Above high <content Saint volume [Entitic normal styleCode="Bold Andrew volume] in Blood ">Mean Platelet Medical by Automated Volume Center count </content>11.3 FL H<content styleCode="Ital ics"> (8.0-11.0 FL)</content> ID Date Data Source GFR(Creatinine).[id number] 11/02/2017 12:16:00 PM EDT [facility] 0-0400 Name Value Range Interpretation Code Description Data Gabrielle rce(s) Supporting Document(s ) UNK > 60 <content [facility] styleCode="Bold"> Medical Cent er EGFR </content>200 GFR<content styleCode="Italic s"> (> 60 GFR)</content> ID Date Data Source BloodBank.[id number] 11/02/2017 12:16:00 PM EDT [facility] Name Value Range Interpretation Code Description Data Gabrielle rce(s) Supporting Document(s ) UNK <content [facility] Morales styleCode="Bold" Medical Cente r >RH Type </content>POSITI VE (Reference Range: not available)
UNK NEGATIVE <content [facility] Morales styleCode="Bold" Medical Cente r >Antibody Screen </content>NEGATI VE <content styleCode="Itali cs"> (NEGATIVE )</content> UNK <content [facility] Morales styleCode="Bold" Medical Cente r >Blood Type </content>GROUP A (Reference Range: not available)
ID Date Data Source [facility].[id number] 11/02/2017 12:16:00 PM EDT [facility] Center Name Value Range Interpretation Description Data Sup porting Code Source(s) Document(s ) Potassium 3.5-5.3 <content Saint [Moles/volume] styleCode="Nadia Andrew in Serum or d">Potassium Medical Plasma </content>3.9 Center MEQ/L<content styleCode="Destiny lics"> (3.5-5.3 MEQ/L)</conten t> Sodium 137-145 <content [facility] [Moles/volume] styleCode="Nadia Andrew in Serum or d">Sodium Medical Plasma </content>139 Center MEQ/L<content styleCode="Destiny lics"> (137-145 MEQ/L)</conten t> Chloride 98-107 <content [facility] [Moles/volume] styleCode="Nadia Andrew in Serum or d">Chloride Medical Plasma </content>100 Center MEQ/L<content styleCode="Destiny lics"> (98-107 MEQ/L)</conten t> Carbon 22-30 <content [facility] dioxide, total styleCode="Nadia Andrew [Moles/volume] d">Carbon Medical in Serum or Dioxide Center Plasma </content>27 MEQ/L<content styleCode="Destiny lics"> (22-30 MEQ/L)</conten t> UNK 7-17 Below low normal <content Saint styleCode="Nadia Andrew d">BUN Medical </content>5 Center MG/DL L<content styleCode="Destiny lics"> (7-17 MG/DL)</conten t> Creatinine 0.5-1.3 <content Saint [Mass/volume] styleCode="Nadia Andrew in Serum or d">Creatinine Medical Plasma </content>0.5 Center MG/DL<content styleCode="Destiny lics"> (0.5-1.3 MG/DL)</conten t> Calcium 8.4-10.2 <content Saint [Mass/volume] styleCode="Nadia Andrew in Serum or d">Calcium Medical Plasma </content>9.6 Center MG/DL<content styleCode="Destiny lics"> (8.4-10.2 MG/DL)</conten t> Glucose 74-106 <content Saint [Mass/volume] styleCode="Nadia Andrew in Serum or d">Glucose Medical Plasma </content>81 Center MG/DL<content styleCode="Destiny lics"> (74-106 MG/DL)</conten t> UNK > 60 <content Saint styleCode="Nadia Andrew d">EGFR Medical </content>200 Center GFR<content styleCode="Destiny lics"> (> 60 GFR)</content> ID Date Data Source [id number] 10/22/2017 01:31:00 PM EDT MCGREGOR ([facility]) Name Value Range Interpretation Description Data Source(s ) Supporting Code Document(s ) Trichomonas Negative Trichomonas TEE vaginalis rRNA vaginalis ([place] [Presence] in [facility]) specimen by DNA probe Gardnerella Positive Abnormal Gardnerella TEE vaginalis rRNA (applies to vaginalis ([place] [Presence] in non-numeric [facility] Genital results) [facility]) specimen by DNA probe Mackenzie sp Negative Mackenzie TEE rRNA species ([place] [Presence] in [facility] Vaginal fluid [facility]) by DNA probe ID Date Data Source [id number] 10/22/2017 01:31:00 PM EDT MCGREGOR ([facility]) Name Value Range Interpretation Description Data Source(s ) Supporting Code Document(s ) Neisseria Negative Neisseria TEE gonorrhoeae gonorrhoeae, ([place] rRNA [Presence] [place] [facility]ighborhood in [facility]) specimen by Probe and target amplification method Chlamydia Negative Chlamydia TEE trachomatis trachomatis, ([place] rRNA [Presence] BIBIANA [facility] in [facility]) specimen by Probe and target amplification method ID Date Data Source [id number] 10/22/2017 01:19:00 PM EDT TEE ([facility]) Name Value Range Interpretation Description Data Source(s ) Supporting Code Document(s ) Microscopic . . TEE ([facility] observation Julio [Identifier] [facility] in [facility]) specimen by Other stain Note: PAPSMR Note: TEE ([facility]) Note: The Pap smear is a screening test designed to aid in the detection ofpremalignant and malignant conditions of the uterine cervix. It is not adiagnostic procedure and should not be used as the sole means of detectingcervical cancer. Both false-positive and false-negative report s do occur. . NEGHPV . TEE ([facility]) Note: The HPV DNA reflex criteria were n ot met with this specimen resulttherefore, no HPV testing was performed. Pathology report final See Note DIAGNOSIS: JOSHUA AY ([place] diagnosis Narrative [facility]) Note: NEGATIVE FOR INTRAEPITHELIAL LESIO N AND MALIGNANCY.THE CYTOLOGY PROCESSING WAS PERFORMED AT THE [facility] [place] [phone]. Statement of adequacy See Note Specimen adequacy: TEE ([place] [Interpretation] of Cervical N [facility] or vaginal smear or scraping C enter) by Cyto stain Note: Satisfactory for evaluation. Endo cervical and/or squamous metaplasticcells (endocervical component) are present. Diagnosis ICD code See Note Clinician provided RADHA BARRY ([place] ICD10: [facility]) Note: Z01.419 Installation Manager who read Cyto See Note Performed by: Coide SANTOS ([place] stain of Cervical or [facility]) vaginal smear or scraping Note: Davion Graham, Cytotechnolog ist (ASCP) Cytology report of IGLPAP Test Methodology: VIJAY DEL CASTILLO ([place] Cervical or vaginal smear [facility]) or scraping Cyto stain.thin prep Note: This liquid based ThinPrep(R) pap test was screened with theuse of an image guided system. ID Date Data Source [id number] 10/22/2017 12:00:00 AM EDT TEE ([facility]) Name Value Range Interpretation Description Data Sup porting Code Source(s) Document(s ) Glucose 74 Glucose TEE [Mass/volume] in mg/dL ([facility]) Calcium 9.9 Calcium TEE [Mass/volume] in mg/dL ([facility]) Urea nitrogen 7 mg/dL BUN TEE [Mass/volume] in ([facility]) Protein 7.3 Protein, TEE [Mass/volume] in g/dL Total ([facility]) Bilirubin.total 0.8 Bilirubin, TEE [Mass/volume] in mg/dL Total ([facility]) Albumin 4.5 Albumin TEE [Mass/volume] in g/dL ([facility]) Alkaline 42 IU/L Alkaline TEE phosphatase Phosphatase ([place] [Enzymatic Neighborhood activity/volume] [facility]) Potassium 4.7 Potassium TEE [Moles/volume] in mmol/L ([facility]) Aspartate 19 IU/L AST (SGOT) TEE aminotransferase ([place] [Enzymatic Neighborhood activity/volume] [facility]) Sodium 139 Sodium TEE [Moles/volume] in mmol/L ([facility]) Alanine 22 IU/L ALT (SGPT) TEE aminotransferase ([place] [Enzymatic Neighborhood activity/volume] [facility]) Creatinine 0.55 Below low normal Creatinine TEE [Mass/volume] in mg/dL ([facility]) Chloride 100 Chloride TEE [Moles/volume] in mmol/L ([facility]) Urea 13 BUN/Creatinin TEE nitrogen/Creatinin e Ratio ([facility] on e [Mass Ratio] in [facility]) Carbon dioxide, 24 Carbon TEE total mmol/L Dioxide, ([place] [Moles/volume] in Total [facility]) Note: Ple ase note reference interval change Albumin/Globulin [Mass 1.6 A/G Ratio GREENWA Y ([facility] Ratio] in Serum or [facility] Globulin [Mass/volume] in 2.8 g/dL Globulin, Tota l TEE ([facility] Serum by calculation [facility]) eGFR If NonAfricn Am 135 eGFR If NonAfricn G REENWAY ([facility] mL/min/1.73 Am [facility]) eGFR If Africn Am 155 eGFR If Africn Am GREE NWAY ([facility] mL/min/1.73 [facility]) ID Date Data Source [id number] 10/22/2017 12:00:00 AM EDT MCGREGOR ([facility]) Name Value Range Interpretation Description Data Source(s ) Supporting Code Document(s ) Cholesterol in 42 HDL Cholesterol TEE HDL mg/dL ([place] [Mass/volume] Neighborhood in Serum or [facility]) Plasma Cholesterol 127 Cholesterol, MCGREGOR [Mass/volume] mg/dL Total ([place] in Serum or [facility]) Triglyceride 69 Triglycerides MCGREGOR [Mass/volume] mg/dL ([place] in Serum or [facility]) Cholesterol in 14 VLDL TEE VLDL mg/dL Cholesterol Kishor ([place] [Mass/volume] [facility] in Serum or [facility]) Plasma by calculation Laboratory N/A Comment: TEE comment [Text] ([place] in Report [facility]) Cholesterol in 1.7 LDL/HDL Ratio TEE LDL/Cholestero ratio ([place] l in HDL [Mass Neighborhood Ratio] in [facility]) Serum or Plasma Note: LDL/HDL Ratio Men Women 1/2 Avg.Risk 1.0 1.5 Avg.Risk 3.6 3.2 2X Avg.Risk 6.2 5.0 3X Avg.Risk 8.0 6.1 Cholesterol in LDL 71 mg/dL LDL Cholesterol Calc TEE ([place] [Mass/volume] in Serum or [facility] Plasma by calculation Center) ID Date Data Source [id number] 10/22/2017 12:00:00 AM EDT TEE ([facility]) Name Value Range Interpretation Description Data Source(s ) Supporting Code Document(s ) Hemoglobin 62.2 % Below low normal Hgb A TEE (Mo unt A/Hemoglobin.t Julio otal in Blood [facility]) Hemoglobin 34.1 % Above high normal Hgb S TEE (M ount S/Hemoglobin.t [facility] otal in Blood [facility]) Note: Hemoglobin S was verified by a sec ond method: either Solubilitytesting or High Resolution HPLC. Hemoglobin 0.0 % Hgb TEE ([facility] F/Hemoglobin.total in [facility]) Hemoglobin 3.7 % Above high Hemoglobin A2, Qn TEE ( [facility] A2/Hemoglobin.total in normal [facility] Blood [facility]) column Hemoglobin 0.0 % Hgb C TEE ([facility] C/Hemoglobin.total in [facility]) Deprecated 0.0 % Hgb Variant TEE ([facility] Hemoglobin.other/Hemoglob [facility] in.total [interpretation] [facility]) in Blood Hemoglobin pattern HGAS1 Interpretation GREENW AY ([facility] [Interpretation] in Blood [facility]) Note: Hemoglobin pattern and concentrati on are consistent withsickle cell trait (heterozygous). Suggest clinical andhema tologic correlation. Sickle Trait Interpretation Ranges Hgb A 50.0 - 70.0% Hgb S 30.0 - 45.0% Hgb A2 3.0 - 5.0% Hgb A2 values are seen to be increased over normal levels.This increase is typically due to interference fromco-eluting Hgb S-subunits with the HPLC method and ther eforethe Hgb A2 interpretation ranges have been adjusted. ID Date Data Source [id number] 10/22/2017 12:00:00 AM EDT TEE ([facility]) Name Value Range Interpretation Description Data Source(s ) Supporting Code Document(s ) aPTT in 25 sec aPTT MCGREGOR ([facility] Platelet poor [place] plasma by [facility]) assay Note: This test has not been validated f or monitoring unfractionated heparintherapy. aPTT-based therapeutic ranges for unfrac tionated heparintherapy have not been established. For general guidelines onHe devyn monitoring, refer to the [facility] Directory of Services. Prothrombin time (PT) 11.3 sec [facility]bin Time [facility] ([facility]) INR in Platelet poor 1.1 INR MCGREGOR ([place] plasma by Coagulation [facility]) assay Note: Reference interval is for non-anticoagulated patients. Suggested INR therapeutic range for Vitamin K antagonist therapy: Standard Dose (moderate i ntensity therapeutic range): 2.0 - 3.0 Higher intensity therapeutic range 2.5 - 3.5 ID Date Data Source [id number] 10/22/2017 12:00:00 AM CLARK OLIVEIRA ([facility]) Name Value Range Interpretation Description Data Source(s ) Supporting Code Document(s ) CFTR gene MMAIL CF, Screen TEE ([facility] mutations Julio found [facility] [Identifier] [facility]) in Blood or Tissue by Molecular genetics method Nominal Note: Molecular analysis report has been mailed. Genetic analysis narrative . PDF VIJAY DEL CASTILLO ([place] report Document [facility]) Laboratory comment [Text] in See Note Comment: Codie SANTOS ([place] Report Narrative [facility]) Note: The assay provides information int ended to be used for carrierscreening in adults of reproductive age, as an aid in newbornscreening, and as a confirmatory test for another medicallyestablished diagnos is in newborns and children. The test is notindicated for use in diagnostic testing, pre-implantationscreening, or for any stand-alone diagnostic purposes with outconfirmation by another medically established diagnostic productor procedu re. ID Date Data Source [id number] 10/22/2017 12:00:00 AM CLARK OLIVEIRA ([facility]) Name Value Range Interpretation Description Data Source(s ) Supporting Code Document(s ) Thyrotropin 0.727 TSH MCGREGOR ([facility] [Units/volume] uIU/mL Julio in Serum or [facility] Plasma by [facility]) Detection limit <= 0.05 mIU/L ID Date Data Source [id number] 10/22/2017 12:00:00 AM CLRAK OLIVEIRA ([facility]) Name Value Range Interpretation Description Data Source(s ) Supporting Code Document(s ) Rubella virus 14.80 Rubella MCGREGOR IgG Ab index Antibodies, ([place] [Units/volume] IgG [facility] in Serum or [facility]) Plasma by Immunoassay Note: Non-immune <0.90 Equi vocal 0.90 - 0.99 Immune >0.9 9 ID Date Data Source [id number] 10/22/2017 12:00:00 AM EDT TEE ([facility]) Name Value Range Interpretation Description Data Source(s ) Supporting Code Document(s ) Lead None Lead, Blood TEE ([facility] [Mass/vol Detected Julio ume] in ug/dL [facility] Blood [facility]) Note: If the collected sp ecimen type was capillary, the Centers for Disease Control and Preventi on provide the following recommendation: Repeat pediatric blood levels equal to or greater than 5 ug/dL on a fresh venous blood specimen. Environmental Exposure: WHO <20 Occupational Exposure: OS MAURO Lead Std 40 RAMU 30 Detection Limit = 1 (Children under 16 years) ID Date Data Source [id number] 10/22/2017 12:00:00 AM EDT TEE ([facility]) Name Value Range Interpretation Description Data Source(s ) Supporting Code Document(s ) Urate 3.6 mg/dL Uric Acid TEE ([facility] [Mass/volu Julio me] in [facility] Serum or [facility]) Plasma Note: Therapeu tic target for gout patients: <6.0 ID Date Data Source [id number] 10/22/2017 12:00:00 AM EDT TEE ([facility]) Name Value Range Interpretation Description Data Source(s ) Supporting Code Document(s ) Hepatitis B Negative HBsAg Screen TEE virus surface ([place] Ag [Presence] Neighborhood in Serum or Health Center) Plasma by Immunoassay ID Date Data Source [id number] 10/22/2017 12:00:00 AM EDT TEE ([facility]) Name Value Range Interpretation Description Data Source(s ) Supporting Code Document(s ) Bacteria Final Urine TEE identified in report Culture, ([place] Urine by Routine [facility]) Bacteria No growth Result 1 TEE identified in ([place] Urine by [facility]) Procedure Social History Code Duration Value Status Description Data Source(s ) Caffeine Use 08/31/2019 completed NEXTGEN ([place] nt Details 12:00:00 AM [facility]) Smoking 08/31/2019 Unknown if completed Unknown if ever NEXTGEN ( Saint 12:00:00 AM ever smoked smoked [facility]) Smoking 07/20/2019 Former Smoker completed Former Smoker Saint Gunjan sephs 04:50:00 PM Medical [facility] r EDT Smoking 07/20/2019 Former Smoker completed Former Smoker Saint Gunjan sephs 04:35:00 PM Medical Cente r EDT Smoking 07/20/2019 Former Smoker completed Former Smoker Saint Hollins sephs 04:24:00 PM Medical Cente r EDT Smoking 06/02/2019 Former Smoker completed Former Smoker [facility] Hollins sephs 04:41:00 PM Medical Cente r EST Smoking 06/02/2019 Former Smoker completed Former Smoker [facility] Hollins sephs 02:33:00 PM Medical Cente r EST Smoking 06/02/2019 Former Smoker completed Former Smoker Saint Hollins sephs 02:26:00 PM Medical Cente r EST Smoking 05/08/2019 Former Smoker completed Former Smoker Saint Hollins sephs 01:42:00 PM Medical Cente r EST Smoking 05/08/2019 Former Smoker completed Former Smoker Saint Hollins sephs 01:25:00 PM Medical Cente r EST Smoking 08/29/2018 Never Smoker completed Never Smoker eCW3 ([place] on 12:00:00 AM [facility]) Smoking 06/27/2018 Never Smoker completed Never Smoker eCW3 ([place] on 12:00:00 AM [facility]) Smoking Unknown if completed Unknown if ever White Roberto ins ever smoked smoked Hospital Alcohol Use completed NEXTGEN ([facility]) Smoking Unknown if completed Unknown if ever [place] ephviridiana ever smoked smoked Medical Cente r Never Smoker completed Never Smoker eCW3 ([place]) Smoking Unknown if completed Unknown if ever eCW2 (Roberto nned ever smoked smoked [facility]) Never Smoker completed Never Smoker eCW3 ([place]) Smoking Unknown if completed Unknown if ever TEE ([facility] ever smoked smoked [facility]) Vital Signs ID Date Data Source UNK Name Value Range Interpretation Code Description Data Source(s) Diastolic blood 60 mm[Hg] 60 mm[Hg] White Roberto ins pressure Hospital Systolic blood 111 mm[Hg] 111 mm[Hg] White Plai ns pressure Hospital Respiratory rate 18 /min 18 /min [facility] Heart rate 90 /min 90 /min Body temperature 37.05845 37.98433 Sis [facility] Body temperature 99.1 [degF] 99.1 [degF] Body mass index 28.0 kg/m2 28.0 kg/m2 White Roberto ins (BMI) [Ratio] Hospital Body weight 160.32 160.32 [lb_av] White Roberto ins [lb_av] Hospital Body weight 73.276210 73.377423 kg Saint Daviesp hs Measured kg Medical Center Body temperature 37.642346 37.175418 Sis [facility] Respiratory rate 20 /min 20 /min [facility] Oxygen saturation 97 % 97 % Saint Alvarenga osephs in Arterial blood [facility] Center by Pulse oximetry Heart rate 93 /min 93 /min [facility] Body height 160.290243 160.006584 cm [facility] Diastolic blood 57 mm[Hg] 57 mm[Hg] [facility] pressure [facility] Center Systolic blood 113 mm[Hg] 113 mm[Hg] [facility] pressure [facility] Body mass index 28.5 kg/m2 28.5 kg/m2 [facility] (BMI) [Ratio] Medical [facility] ter Body surface area 1.80 m2 1.80 m2 NEXTGEN ([facility]) Body mass index 29.30 kg/m2 Overweight 29.30 kg/m2 NEXTGEN ([facility] (BMI) [Ratio] [facility]) Respiratory rate 16 /min 16 /min [facility] ([facility]) Body temperature 36.72 Sis 36.72 Sis [facility] ([facility]) Heart rate 74 /min 74 /min [facility] ([facility]) Diastolic blood 50 mm[Hg] 50 mm[Hg] [facility] ( [facility]) Systolic blood 102 mm[Hg] 102 mm[Hg] [facility] (S aint pressure [facility]) Body weight 73.845 kg 73.845 kg [facility] ([facility]) Body height 158.75 cm 158.75 cm [facility] ([facility]) Oxygen saturation 100 % 100 % [facility] ([facility] in Arterial blood [facility] by Pulse oximetry Center) Body mass index 29.52 kg/m2 Overweight 29.52 kg/m2 [facility] (BMI) [Ratio] [facility]) Respiratory rate 19 /min 19 /min [facility] ([facility]) Body temperature 36.61 Sis 36.61 Sis [facility] ([facility]) Heart rate 77 /min 77 /min NEXTGEN ([facility]) Diastolic blood 65 mm[Hg] 65 mm[Hg] NEXTGEN ( [facility] pressure [facility]) Systolic blood 107 mm[Hg] 107 mm[Hg] NEXTGEN ([facility]) Body weight 74.389 kg 74.389 kg NEXTGEN ([facility]) Body height 158.75 cm 158.75 cm [facility] ([facility]) Body temperature 36.223054 36.778587 [facility] Respiratory rate 18 /min 18 /min [facility] Oxygen saturation 100 % 100 % Saint J osephs in Arterial blood [facility] by Pulse oximetry Heart rate 76 /min 76 /min [facility] Diastolic blood 68 mm[Hg] 68 mm[Hg] [facility] Systolic blood 129 mm[Hg] 129 mm[Hg] [facility] Body temperature 36.089402 36.886625 [facility] Respiratory rate 18 /min 18 /min [facility] Oxygen saturation 100 % 100 % Saint J osephs in Arterial blood [facility] by Pulse oximetry Heart rate 74 /min 74 /min [facility] Diastolic blood 54 mm[Hg] 54 mm[Hg] [facility] Systolic blood 126 mm[Hg] 126 mm[Hg] [facility] Body temperature 36.587677 36.290500 [facility] Respiratory rate 18 /min 18 /min [facility] Oxygen saturation 99 % 99 % Saint J osephs in [facility] blood [facility] by Pulse oximetry Heart rate 77 /min 77 /min [facility] Diastolic blood 56 mm[Hg] 56 mm[Hg] [facility] pressure [facility] Systolic blood 129 mm[Hg] 129 mm[Hg] [facility] Body temperature 37.841418 37.699116 [facility] Respiratory rate 19 /min 19 /min [facility] Oxygen saturation 98 % 98 % Saint J osephs in [facility] blood [facility] by Pulse oximetry Heart rate 92 /min 92 /min [facility] Diastolic blood 74 mm[Hg] 74 mm[Hg] [facility] pressure Medical Center Systolic blood 142 mm[Hg] 142 mm[Hg] [facility] pressure Medical Center Body weight 72.855423 72.389199 kg Saint Daviesp hs Measured kg Medical Center Body temperature 37.197048 37.944619 Sis [facility] Respiratory rate 19 /min 19 /min [facility] Oxygen saturation 98 % 98 % Saint Alvarenga osephs in Arterial blood Medical Center by Pulse oximetry Heart rate 91 /min 91 /min [facility] Body height 160.546066 160.662829 cm [facility] cm Medical Center Diastolic blood 55 mm[Hg] 55 mm[Hg] [facility] pressure Medical Center Systolic blood 112 mm[Hg] 112 mm[Hg] [facility] Body mass index 28.3 kg/m2 28.3 kg/m2 [facility] (BMI) [Ratio] Medical [address] ter Diastolic blood 77 mm[Hg] 77 mm[Hg] eCW2 (Roberto nned pressure [facility]) Systolic blood 134 mm[Hg] 134 mm[Hg] eCW2 (Plan lemuel pressure [facility]) Body mass index 26.62 kg/m2 26.62 kg/m2 eCW2 (P lanned (BMI) [Ratio] [facility]) Body weight 160 [lb_av] 160 [lb_av] eCW2 (Plann ed Measured [facility]) Body height 65 [in_us] 65 [in_us] eCW2 ([facility]) Diastolic blood 69 mm[Hg] 69 mm[Hg] eCW3 ([facility]) Systolic blood 120 mm[Hg] 120 mm[Hg] eCW3 ([facility]) Body temperature 98.8 [degF] 98.8 [degF] eCW3 ( [facility]) Heart rate 20 /min 20 /min eCW3 ([facility]) Body mass index 27.24 kg/m2 27.24 kg/m2 eCW3 (H udson (BMI) [Ratio] [facility]) Body weight 155 [lb_av] 155 [lb_av] eCW3 ([facility]) Body height 63.25 63.25 [in_i] eCW3 ([facility] [in_i] [facility]) Diastolic blood 61 mm[Hg] 61 mm[Hg] eCW3 ([facility]) Systolic blood 94 mm[Hg] 94 mm[Hg] eCW3 ([facility]) Body temperature 98.7 [degF] 98.7 [degF] eCW3 ( [facility]) Heart rate 18 /min 18 /min eCW3 ([facility]) Body mass index 25.48 kg/m2 25.48 kg/m2 eCW3 (H udson (BMI) [Ratio] [facility]) Body weight 145 [lb_av] 145 [lb_av] eCW3 ([facility]) Body height 63.25 63.25 [in_i] eCW3 ([facility] [in_i] [facility]) Systolic blood 110 mm[Hg] 110 mm[Hg] TEE ( [facility]) patient present follow up Diastolic blood pressure 69 mm[Hg] 69 mm[Hg] TEE ([facility]) patient present follow up Heart rate 106 /min 106 /min TEE ([facility]) patient present follow up Respiratory rate 18 /min 18 /min TEE ([facility]) patient present follow up Body temperature 97.7 [degF] 97.7 [degF] GREENW AY ([facility]) patient present follow up Body weight 150 [lb_av] 150 [lb_av] TEE ([facility] [facility]) patient present follow up PhenX - pain, abdominal - type and 0 0 TEE ([facility]) patient present follow up Systolic blood pressure 115 mm[Hg] 115 mm[Hg] G REENWAY ([facility]) Pt here for follow up Diastolic blood pressure 69 mm[Hg] 69 mm[Hg] TEE ([facility]) Pt here for follow up Heart rate 98 /min 98 /min TEE ([facility]) Pt here for follow up Body temperature 97.4 [degF] 97.4 [degF] GREENW AY ([facility]) Pt here for follow up Body weight 152 [lb_av] 152 [lb_av] TEE ([facility]) Pt here for follow up PhenX - pain, abdominal - type and 0 0 TEE ([facility]) Pt here for follow up Systolic blood pressure 104 mm[Hg] 104 mm[Hg] G REENWAY ([facility]) Pt here for follow up 26w 6d Diastolic blood pressure 72 mm[Hg] 72 mm[Hg] TEE ([facility]) Pt here for follow up 26w 6d Heart rate 101 /min 101 /min TEE ([facility]) Pt here for follow up 26w 6d Body temperature 97.9 [degF] 97.9 [degF] GREENW AY ([facility]) Pt here for follow up 26w 6d Body weight 144 [lb_av] 144 [lb_av] TEE ([facility]) Pt here for follow up 26w 6d PhenX - pain, abdominal - type and 0 0 TEE ([facility]) Pt here for follow up 26w 6d Systolic blood pressure 113 mm[Hg] 113 mm[Hg] G REENWAY ([facility]) patient present for f/u Diastolic blood pressure 62 mm[Hg] 62 mm[Hg] TEE ([facility]) patient present for f/u Heart rate 74 /min 74 /min TEE ([facility]) patient present for f/u Respiratory rate 18 /min 18 /min TEE ([facility]) patient present for f/u Body temperature 98.2 [degF] 98.2 [degF] GREENW AY ([facility]) patient present for f/u Body weight 137 [lb_av] 137 [lb_av] TEE ([facility]) patient present for f/u PhenX - pain, abdominal - type and 0 0 TEE ([facility]) patient present for f/u Systolic blood pressure 110 mm[Hg] 110 mm[Hg] [facility] ([facility]) patient here for follow up lmp: 09/03/17 x 5-6 days Diastolic blood pressure 69 mm[Hg] 69 mm[Hg] [facility] ([facility]) patient here for follow up lmp: 09/03/17 x 5-6 days Heart rate 90 /min 90 /min [facility] ([facility]) patient here for follow up lmp: 09/03/17 x 5-6 days Body temperature 96.9 [degF] 96.9 [degF] LIBERALW AY ([facility]) patient here for follow up lmp: 09/03/17 x 5-6 days Body height 63.1 [in_us] 63.1 [in_us] [facility] ([facility]) patient here for follow up lmp: 09/03/17 x 5-6 days Body weight 123 [lb_av] 123 [lb_av] [facility] ([facility]) patient here for follow up lmp: 09/03/17 x 5-6 days Body mass index (BMI) 21.7 kg/m2 21.7 kg/m2 [place] ([place] [facility]) patient here for follow up lmp: 09/03/17 x 5-6 days Body surface area Derived from 1.57 m2 1.57 m2 [place] ([facility]) patient here for follow up lmp: 09/03/17 x 5-6 days PhenX - pain, abdominal - type and 0 0 [place] ([facility]) patient here for follow up lmp: 09/03/17 x 5-6 days Systolic blood pressure 110 mm[Hg] 110 mm[Hg] G [facility] ([facility]) Patient here today for Nurse Screening w hich was done by Jackie Preciado RN. Diastolic blood pressure 70 mm[Hg] 70 mm[Hg] [facility] ([facility]) Patient here today for Nurse Screening w hich was done by Jackie Preciado RN. Heart rate 71 /min 71 /min [facility] ([facility]) Patient here today for Nurse Screening w hich was done by Jackie Preciado RN. Body temperature 98.1 [degF] 98.1 [degF] GRE[place] AY ([facility]) Patient here today for Nurse Screening w hich was done by Jackie Preciado RN. Body height 63 [in_us] 63 [in_us] [facility] ([facility]) Patient here today for Nurse Screening w hich was done by Jackie Preciado RN. Body weight 129 [lb_av] 129 [lb_av] [facility] Patient here today for Nurse Screening w hich was done by Jackie Preciado RN. Body mass index (BMI) 22.9 kg/m2 22.9 kg/m2 [place] ([place] [facility]) Patient here today for Nurse Screening w hich was done by Jackie Preciado RN. Body surface area Derived from 1.61 m2 1.61 m2 [place] ([facility]) Patient here today for Nurse Screening w hich was done by Jackie Preciado RN. PhenX - pain, abdominal - type and 0 0 [place] ([facility]) Patient here today for Nurse Screening w hich was done by Jackie Preciado RN. Systolic blood pressure 110 mm[Hg] 110 mm[Hg] G REENWAY ([facility]) PATIENT HERE FOR 1ST VISITLMP: 09/04/17 X 5-6 DAYS Diastolic blood pressure 70 mm[Hg] 70 mm[Hg] [facility] ([facility]) PATIENT HERE FOR 1ST VISITLMP: 09/04/17 X 5-6 DAYS Heart rate 71 /min 71 /min [place] ([facility]) PATIENT HERE FOR 1ST VISITLMP: 09/04/17 X 5-6 DAYS Body temperature 98.1 [degF] 98.1 [degF] GRE[facility]W AY ([facility]) PATIENT HERE FOR 1ST VISITLMP: 09/04/17 X 5-6 DAYS Body height 63.1 [in_us] 63.1 [in_us] [place] ([facility]) PATIENT HERE FOR 1ST VISITLMP: 09/04/17 X 5-6 DAYS Body weight 129 [lb_av] 129 [lb_av] TEE ([facility]) PATIENT HERE FOR 1ST VISITLMP: 09/04/17 X 5-6 DAYS Body mass index (BMI) 22.8 kg/m2 22.8 kg/m2 [place] ([place] [facility]) PATIENT HERE FOR 1ST VISITLMP: 09/04/17 X 5-6 DAYS Body surface area Derived from 1.61 m2 1.61 m2 TEE ([facility]) PATIENT HERE FOR 1ST VISITLMP: 09/04/17 X 5-6 DAYS PhenX - pain, abdominal - type and 0 0 TEE ([facility]) PATIENT HERE FOR 1ST VISITLMP: 09/04/17 X 5-6 DAYS Systolic blood pressure 110 mm[Hg] 110 mm[Hg] G REENWAY ([facility]) patient present for preegnancy onfirmati on, lmp 09/04/17 Diastolic blood pressure 68 mm[Hg] 68 mm[Hg] [facility] ([facility]) patient present for preegnancy onfirmati on, lmp 09/04/17 Heart rate 74 /min 74 /min [place] ([facility]) patient present for preegnancy onfirmati on, lmp 09/04/17 Respiratory rate 18 /min 18 /min [facility] ([facility]) patient present for preegnancy onfirmati on, lmp 09/04/17 Body temperature 97.6 [degF] 97.6 [degF] LIB[facility] AY ([facility]) patient present for preegnancy onfirmati on, lmp 09/04/17 Body weight 126 [lb_av] 126 [lb_av] TEE ([facility]) patient present for preegnancy onfirmati on, lmp 09/04/17 PhenX - pain, abdominal - type and 0 0 TEE ([facility]) patient present for preegnancy onfirmati on, lmp 09/04/17 Patient Treatment Plan of Care Planned Activity Planned Date Details Description Data Source (s) Docusate Sodium 100 MG Oral 06/03/2019 NEXTGEN ([facility] [Colace] 12:00:00 AM [facility]) Ascorbic Acid 500 MG Oral 06/03/2019 NE XTGEN ([facility] Tablet 12:00:00 AM [facility]) ferrous sulfate 325 MG Oral 06/03/2019 NEXTGEN ([facility] Tablet 12:00:00 AM [facility]) Norethin [place]-Eth Estrad-FE 08/29/2018 e CW3 ([place] 1-20 MG-MCG 12:00:00 AM [facility]) Ibuprofen 400 MG Oral 09/24/2017 NEXTGE N ([facility]t 12:00:00 AM [facility]) + DHA 28 mg NEXTGEN ([facility] iron-975 mcg-200 mg oral [facility]) Sulfamethoxazole 800 MG / Sa int [facility] Trimethoprim 160 [facility] Clindamycin 300 MG Oral [facility] t [facility] Methylergonovine Maleate [place] nt [place] 0.2 MG Oral Tablet [facility] Misoprostol 0.2 MG Oral Richie t [facility] Tablet [facility] Ondansetron 4 MG Oral eCW2 ( [facility] Table[facility] [Zofran] [facility]) Ibuprofen 800 MG Oral eCW2 ( [facility] Table[facility])
--- NOTE | 2020-01-26 02:12 | PDOC ---
Attending Attestation - Resident Resident Name: Kathrine Hill - ED Attending Attestation I have performed the following: I have examined & evaluated the patient, The case was reviewed & discussed with the resident, I agree w/resident's findings & plan - HPI HPI: 01/26/20 06:58 see resident hpi - Physicial Exam PE: 01/26/20 06:58 see resident exam - Medical Decision Making 01/26/20 06:59 24-year-old gravid female, 16-1/2 weeks gestational age confirmed with ultrasound in the emergency department Urinalysis consistent with urinary tract infection, Case discussed with patient's [employer] group who agrees with DC on antibiotics for hemorrhagic cystitis Of note there was no vaginal bleeding found on pelvic exam Discharge - Discharge Information Problems reviewed: Yes Clinical Impression/Diagnosis: , Hemorrhagic cystitis Disposition: HOME - Additional Discharge Information Prescriptions: Cephalexin [Keflex] 500 mg PO BID 7 Days #14 capsule - Follow up/Referral Referrals: Rebecca Hung MD [Staff Physician] - - Patient Discharge Instructions Patient Printed Discharge Instructions: DI for Hemorrhagic Cystitis Additional Instructions: You came to the ED due to blood in your urine We did an ultrasound which showed that your baby had a good heart rate and was moving. Labs showed that you have a urinary tract infection We sent antibiotics to [facility]. Please take the antibiotics as prescribed. Call Dr. Hung office in the morning to make an appointment for them to see you tomorrow. Return to the ED with any new or worsening symptoms. Return to the ED if you develop a fever, have worsening lower abdominal pain, vaginal bleeding, or nausea and vomiting. - Post Discharge Activity
[2020-01-26 02:42] LABS: BASO % 0.6 % (0-2.0); EOS % 1.3 % (0-4.5); HEMATOCRIT 34.7 % (32.4-45.2); HEMOGLOBIN 11.7 GM/dL (10.7-15.3); LYMPH % 9.1 % (8-40); MCH 27.6 pg (25.7-33.7); MCHC 33.8 g/dl (32.0-36.0); MEAN CELL VOLUME 81.7 fl (80-96); MEAN PLT VOLUME 10.1 fl (7.5-11.1); MONO % 6.9 % (3.8-10.2); NEUT % 82.1 % (42.8-82.8); PLATELET COUNT 187 K/MM3 (134-434); RBC 4.24 M/mm3 (3.60-5.2); RDW 13.2 % (11.6-15.6); WHITE BLOOD COUNT 16.7 K/mm3 (4.0-10.0)
[2020-01-26 02:51] LABS: EPI CELLS 8 /uL (0-25.1); HYALINE CASTS 1 /uL (0-3.1); INR 1.04 (0.83-1.09); PH,URINE 6.5 (5.0-8.0); PROTHROMBIN TIME (PATIENT) 12.3 SEC (9.7-13.0); URINE APPEARANCE TURBID; URINE BACTERIA 287 /uL (0-1359); URINE BILIRUBIN NEGATIVE (NEGATIVE); URINE COLOR RED; URINE GLUCOSE (UA) NEGATIVE (NEGATIVE); URINE KETONE NEGATIVE (NEGATIVE); URINE LEUK ESTERASE 3+ (NEGATIVE); URINE NITRITE NEGATIVE (NEGATIVE); URINE PROTEIN 2+ (NEGATIVE); URINE RBC 9401 /uL (0-23.9); URINE WBC 2958 /uL (0-25.8)
[2020-01-26 02:53] LABS: ACTIVATED PTT 24.9 SECONDS (25.2-36.5)
[2020-01-26 03:05] LABS: ALBUMIN 3.3 g/dl (3.4-5.0); BILIRUBIN,TOTAL 0.2 mg/dL (0.2-1); BLOOD UREA NITROGEN 3.4 mg/dL (7-18); CALCIUM 8.9 mg/dL (8.5-10.1); CREATININE 0.6 mg/dL (0.55-1.3); POTASSIUM 4.2 mmol/L (3.5-5.1); TOT PROT 7.2 g/dl (6.4-8.2)
[2020-01-26] MEDS ORDERED: CEFTRIAXONE 1 GM/50 ML BAG ONE (03:14)
== END 2020-01-26 04:05 | disposition home or self-care (01) ==
LOC: JER 01:41
DX: N30.91 Cystitis, unspecified with hematuria (principal); Z3A.16 16 weeks gestation of pregnancy
CPT/HCPCS: 36415; 76801-TC; 80053; 81003; 85025; 85610; 85730; 87040; 87086; 87186; 99284-25

== ENCOUNTER 2020-06-29 12:20 | Inpatient (IN) | payer OTHER ==
[2020-06-29 13:07] VITALS: BMI 30.9
[2020-06-29] MEDS ORDERED: CITRIC ACID/SODIUM CITRATE 30 ML UNIT-DOSE CUP PO ONE (13:08)
[2020-06-29] MEDS ORDERED: ELECTROLYTE-148 SOLN 500 ML IV ONE (13:08)
[2020-06-29] MEDS ORDERED: ELECTROLYTE-148 SOLN 1,000 ML IV SCH (13:15)
[2020-06-29] MEDS ORDERED: ONDANSETRON 4 MG/2 ML VIAL IVPUSH PRN (15:42)
[2020-06-29] MEDS ORDERED: IBUPROFEN 600 MG TABLET (FP) PO PRN (15:42)
[2020-06-29] MEDS ORDERED: OXYTOCIN 20 UNITS in 0.9% NS 20 UNIT/1,000 ML INFUS.BAG IV ONE ×2 (15:43→19:19)
[2020-06-29] MEDS ORDERED: morphine SULFATE/PF 0.5 MG/ML (2cc Syringe - QUVA) ONE (15:44)
[2020-06-29] MEDS ORDERED: PHENYLEPHRINE HCL 10 MG/1 ML SINGLE DOSE VIAL ONE (15:45)
[2020-06-29] MEDS ORDERED: ceFAZolin SODIUM 1 GM VIAL ONE ×2 (15:47)
[2020-06-29] MEDS ORDERED: METHYLERGONOVINE MALEATE 0.2 MG/1 ML AMP IM PRN (16:31)
[2020-06-29] MEDS ORDERED: oxyCODONE HCL 5 MG TABLET PO PRN (16:31)
[2020-06-29] MEDS ORDERED: IBUPROFEN 800 MG/8 ML IJ IVPB PRN (16:31)
[2020-06-29] MEDS: FERROUS SO4 325 MG TABLET (FP) PO SCH (21:07)
[2020-06-30] MEDS: OXYTOCIN 20 UNITS in 0.9% NS 20 UNIT/1,000 ML INFUS.BAG IV SCH (05:47)
[2020-06-30] MEDS: FERROUS SO4 325 MG TABLET (FP) PO SCH ×2 (09:58→22:12)
[2020-06-30] MEDS: PRENATAL VITAMINS W/ FOLIC ACID TABLET (FP) PO SCH (09:58)
[2020-06-30 10:20] LABS: BASO % 0.2 % (0-2.0); EOS % 0.8 % (0-4.5); HEMATOCRIT 27.3 % (32.4-45.2); HEMOGLOBIN 9.2 GM/dL (10.7-15.3); LYMPH % 15.3 % (8-40); MCH 24.3 pg (25.7-33.7); MCHC 33.5 g/dl (32.0-36.0); MEAN CELL VOLUME 72.6 fl (80-96); MEAN PLT VOLUME 9.3 fl (7.5-11.1); MONO % 8.5 % (3.8-10.2); NEUT % 75.2 % (42.8-82.8); PLATELET COUNT 144 K/MM3 (134-434); RBC 3.77 M/mm3 (3.60-5.2); RDW 16.7 % (11.6-15.6); WHITE BLOOD COUNT 9.6 K/mm3 (4.0-10.0)
[2020-06-30] MEDS: ACETAMINOPHEN 325 MG TABLET (FP) PO PRN ×2 (15:04→22:13)
[2020-06-30] MEDS: SIMETHICONE 80 MG TAB.CHEW (FP) PO PRN ×2 (15:05→22:13)
[2020-06-30] MEDS: IBUPROFEN 600 MG TABLET (FP) PO PRN ×2 (15:05→22:13)
[2020-06-30] MEDS ORDERED: BISACODYL 10 MG SUPP.RECT RC PRN (16:31)
[2020-06-30] MEDS: SENNOSIDES/DOCUSATE COMBO (SENNA PLUS) TABLET (UD) PO PRN (22:12)
[2020-07-01] MEDS: ACETAMINOPHEN 325 MG TABLET (FP) PO PRN ×3 (09:32→20:22)
[2020-07-01] MEDS: IBUPROFEN 600 MG TABLET (FP) PO PRN ×3 (09:33→20:21)
[2020-07-01] MEDS: PRENATAL VITAMINS W/ FOLIC ACID TABLET (FP) PO SCH (09:33)
[2020-07-01] MEDS: SIMETHICONE 80 MG TAB.CHEW (FP) PO PRN ×3 (09:33→20:22)
[2020-07-01] MEDS: FERROUS SO4 325 MG TABLET (FP) PO SCH ×2 (10:38→21:10)
[2020-07-01] MEDS: OXYTOCIN 20 UNITS in 0.9% NS 20 UNIT/1,000 ML INFUS.BAG IV SCH (20:20)
[2020-07-01] MEDS: SENNOSIDES/DOCUSATE COMBO (SENNA PLUS) TABLET (UD) PO PRN (21:10)
[2020-07-02] MEDS: IBUPROFEN 600 MG TABLET (FP) PO PRN (06:22)
[2020-07-02] MEDS: ACETAMINOPHEN 325 MG TABLET (FP) PO PRN (06:23)
[2020-07-02] MEDS: SIMETHICONE 80 MG TAB.CHEW (FP) PO PRN ×2 (06:24→10:50)
[2020-07-02 09:05] LABS: BASO % 0.4 % (0-2.0); EOS % 2.1 % (0-4.5); HEMOGLOBIN 9.1 GM/dL (10.7-15.3); MCH 24.1 pg (25.7-33.7); MCHC 32.6 g/dl (32.0-36.0); MEAN CELL VOLUME 73.8 fl (80-96); MEAN PLT VOLUME 9.7 fl (7.5-11.1); NEUT % 74.5 % (42.8-82.8); PLATELET COUNT 173 K/MM3 (134-434); RDW 16.8 % (11.6-15.6); WHITE BLOOD COUNT 9.4 K/mm3 (4.0-10.0)
[2020-07-02] MEDS: PRENATAL VITAMINS W/ FOLIC ACID TABLET (FP) PO SCH (10:48)
[2020-07-02] MEDS: FERROUS SO4 325 MG TABLET (FP) PO SCH (10:48)
[2020-07-02 12:52] VITALS: BP 135/70; PULSE 69; TEMP 98
== END 2020-07-02 15:30 | disposition home or self-care (01) | DRG 540 ==
LOC: JLDR 12:20 → J3W 19:20
PROVIDERS: ADMIT Obstetrics & Gynecology; ATTEND Obstetrics & Gynecology
PROC: 10D00Z1 Extraction of Products of Conception, Low, Open Approach (ICD-10-PCS; principal; 2020-06-29)
DX: O34.219 Maternal care for unspecified type scar from previous cesarean delivery (principal); Z37.0 Single live birth; Z3A.39 39 weeks gestation of pregnancy
CPT/HCPCS: 36415; 85025; 88307-TC

== ENCOUNTER 2020-07-28 22:29 | Inpatient (IN) | payer OTHER ==
[2020-07-28] MEDS ORDERED: ACETAMINOPHEN 1000 MG/100 ML VIAL (NON FORMULARY) IVPB ONE (23:16)
[2020-07-28] MEDS ORDERED: LACTATED RINGERS SOLUTION 1000 ML INFUS.BAG IV ONE (23:23)
[2020-07-28] MEDS ORDERED: ACETAMINOPHEN INJECTION 100 ML IVPB ONE (23:53)
[2020-07-29 00:35] LABS: URINE APPEARANCE CLEAR; URINE BILIRUBIN NEGATIVE (NEGATIVE); URINE COLOR YELLOW; URINE GLUCOSE (UA) NEGATIVE (NEGATIVE); URINE KETONE TRACE (NEGATIVE); URINE LEUK ESTERASE NEGATIVE (NEGATIVE); URINE NITRITE NEGATIVE (NEGATIVE); URINE PROTEIN NEGATIVE (NEGATIVE)
[2020-07-29 00:42] LABS: BASO % 0.5 % (0-2.0); EOS % 2.5 % (0-4.5); HEMATOCRIT 35.6 % (32.4-45.2); HEMOGLOBIN 11.5 GM/dL (10.7-15.3); LYMPH % 15.7 % (8-40); MCH 24.1 pg (25.7-33.7); MCHC 32.1 g/dl (32.0-36.0); MEAN CELL VOLUME 75.1 fl (80-96); MEAN PLT VOLUME 10.3 fl (7.5-11.1); MONO % 7.1 % (3.8-10.2); NEUT % 74.2 % (42.8-82.8); PLATELET COUNT 239 K/MM3 (134-434); RBC 4.75 M/mm3 (3.60-5.2); RDW 19.8 % (11.6-15.6)
[2020-07-29 01:08] LABS: POTASSIUM 4.8 mmol/L (3.5-5.1)
[2020-07-29 01:10] LABS: CALCIUM 9.2 mg/dL (8.5-10.1)
[2020-07-29 01:11] LABS: ALBUMIN 3.5 g/dl (3.4-5.0); BLOOD UREA NITROGEN 6.4 mg/dL (7-18)
[2020-07-29 01:14] LABS: CREATININE 0.6 mg/dL (0.55-1.3)
[2020-07-29 01:16] LABS: BILIRUBIN,TOTAL 0.8 mg/dL (0.2-1); TOT PROT 7.2 g/dl (6.4-8.2)
[2020-07-29 01:29] LABS: ERYTHROCYTE SEDIMENTATION RATE 14 mm/hr (0-20)
[2020-07-29] MEDS ORDERED: CLINDAMYCIN 600MG PREMIX IVPB 600 MG/50 ML BAG IVPB ONE ×3 (02:49→08:27)
[2020-07-29] MEDS ORDERED: ACETAMINOPHEN 325 MG TABLET (FP) PO PRN (05:58)
[2020-07-29] MEDS ORDERED: ACETAMINOPHEN 325 MG TABLET (FP) ONE (08:27)
[2020-07-29] MEDS ORDERED: ENOXAPARIN NA (PORCINE) 40 MG/0.4 ML DISP.SYRIN SQ ONE (08:28)
[2020-07-29 08:54] LABS: BASO % 0.3 % (0-2.0); EOS % 3.1 % (0-4.5); HEMATOCRIT 34.6 % (32.4-45.2); LYMPH % 21.3 % (8-40); MCHC 31.9 g/dl (32.0-36.0); MEAN CELL VOLUME 75.1 fl (80-96); MEAN PLT VOLUME 9.5 fl (7.5-11.1); MONO % 7.4 % (3.8-10.2); NEUT % 67.9 % (42.8-82.8); PLATELET COUNT 190 K/MM3 (134-434); RDW 19.6 % (11.6-15.6); WHITE BLOOD COUNT 7.3 K/mm3 (4.0-10.0)
[2020-07-29 09:20] LABS: POTASSIUM 3.9 mmol/L (3.5-5.1)
[2020-07-29 09:23] LABS: CALCIUM 8.6 mg/dL (8.5-10.1)
[2020-07-29 09:24] LABS: ALBUMIN 3.2 g/dl (3.4-5.0); BLOOD UREA NITROGEN 4.4 mg/dL (7-18)
[2020-07-29 09:27] LABS: CREATININE 0.5 mg/dL (0.55-1.3)
[2020-07-29 09:28] LABS: BILIRUBIN,TOTAL 0.9 mg/dL (0.2-1)
[2020-07-29 09:29] LABS: TOT PROT 6.5 g/dl (6.4-8.2)
[2020-07-29] MEDS ORDERED: ENOXAPARIN NA (PORCINE) 40 MG/0.4 ML DISP.SYRIN SQ SCH (10:00)
[2020-07-29] MEDS ORDERED: CLINDAMYCIN 600MG PREMIX IVPB 600 MG/50 ML BAG IVPB SCH (10:00)
[2020-07-29 11:49] VITALS: PULSE 64; BMI 28.3
[2020-07-29 14:37] VITALS: BP 129/70; TEMP 98.8
== END 2020-07-29 16:21 | disposition left against medical advice (07) | DRG 383 ==
LOC: JER 22:29 → JERBED 07-29 02:41 → J5S 07-29 10:56
PROVIDERS: ADMIT Internal Medicine; ATTEND Internal Medicine
DX: L03.115 Cellulitis of right lower limb (principal); L02.415 Cutaneous abscess of right lower limb
CPT/HCPCS: 36415; 73562-TC-RT-FY; 73700-TC-RT; 76882-TC-LT; 80053; 81003; 83036; 84703; 85025; 85651; 86140; 87040; 87070; 87086; 87186; 87205; 87491; 87591; 93005; 93010; 99285-25; C9803; J0131; U0003

== ENCOUNTER 2020-11-07 20:27 | Emergency (ER) | payer OTHER ==
[2020-11-07 20:34] VITALS: BP 119/77; PULSE 82; TEMP 99.4; BMI 28.3
[2020-11-07] MEDS ORDERED: SODIUM CHLORIDE 1,000 ML IV STA (21:15)
[2020-11-07] MEDS ORDERED: ONDANSETRON 4 MG/2 ML VIAL IVPUSH ONE (21:15)
[2020-11-07] MEDS ORDERED: ONDANSETRON 4 MG/2 ML VIAL ONE (22:21)
[2020-11-07] MEDS ORDERED: ONDANSETRON HCL 4 MG/5 ML UD CUPS ONE (22:21)
[2020-11-07 22:47] LABS: BASO % 0.2 % (0-2.0); EOS % 1.3 % (0-4.5); HEMATOCRIT 36.9 % (32.4-45.2); HEMOGLOBIN 12.2 GM/dL (10.7-15.3); LYMPH % 16.8 % (8-40); MCH 26.1 pg (25.7-33.7); MEAN CELL VOLUME 78.9 fl (80-96); MEAN PLT VOLUME 9.4 fl (7.5-11.1); NEUT % 74.7 % (42.8-82.8); PLATELET COUNT 216 10^3/uL (134-434); RBC 4.68 M/mm3 (3.60-5.2); WHITE BLOOD COUNT 7.2 K/mm3 (4.0-10.0)
[2020-11-07 22:57] LABS: HCG,QUALITATIVE URINE Negative
[2020-11-07 22:58] LABS: EPI CELLS >36 /uL (0-25.1); HYALINE CASTS 18 /uL (0-3.1); PH,URINE 5.5 (5.0-8.0); URINE APPEARANCE TURBID; URINE BACTERIA 722 /uL (0-1359); URINE BILIRUBIN 1+ (NEGATIVE); URINE COLOR ORANGE; URINE GLUCOSE (UA) NEGATIVE (NEGATIVE); URINE KETONE TRACE (NEGATIVE); URINE LEUK ESTERASE 1+ (NEGATIVE); URINE NITRITE NEGATIVE (NEGATIVE); URINE PROTEIN 2+ (NEGATIVE); URINE UROBILINOGEN 0.2 mg/dL (0.2-1.0); URINE WBC 123 /uL (0-25.8)
[2020-11-07 23:18] LABS: ALBUMIN 4.1 g/dl (3.4-5.0); BLOOD UREA NITROGEN 5.4 mg/dL (7-18); CALCIUM 8.5 mg/dL (8.5-10.1)
[2020-11-07 23:22] LABS: CREATININE 0.7 mg/dL (0.55-1.3)
[2020-11-07 23:23] LABS: BILIRUBIN,TOTAL 1.1 mg/dL (0.2-1); TOT PROT 7.9 g/dl (6.4-8.2)
[2020-11-08 00:34] LABS: URINE RBC 67.8 /uL (0-23.9); YEAST NONE SEEN (NEGATIVE)
== END 2020-11-07 23:57 | disposition home or self-care (01) ==
LOC: JERFT 20:27 → JER 20:27
PROC: 3E033GC Introduction of Other Therapeutic Substance into Peripheral Vein, Percutaneous Approach (ICD-10-PCS; principal; 2020-11-07)
PROC: 3E0337Z Introduction of Electrolytic and Water Balance Substance into Peripheral Vein, Percutaneous Approach (ICD-10-PCS; 2020-11-07)
DX: K52.9 Noninfective gastroenteritis and colitis, unspecified (principal)
CPT/HCPCS: 36415; 80053; 81003; 83690; 84703; 85025; 87077; 87086; 99284-25; C9803; U0003; U0005

== ENCOUNTER 2021-05-01 07:00 | Emergency (ER) | payer OTHER ==
[2021-05-01 07:09] VITALS: BP 107/71; PULSE 97; TEMP 98.2; BMI 28.7
[2021-05-01 09:29] LABS: PH,URINE 5.5 (5.0-8.0); URINE APPEARANCE CLEAR; URINE BILIRUBIN NEGATIVE (NEGATIVE); URINE COLOR YELLOW; URINE GLUCOSE (UA) NEGATIVE (NEGATIVE); URINE KETONE NEGATIVE (NEGATIVE); URINE LEUK ESTERASE NEGATIVE (NEGATIVE); URINE NITRITE NEGATIVE (NEGATIVE); URINE PROTEIN NEGATIVE (NEGATIVE); URINE UROBILINOGEN 0.2 mg/dL (0.2-1.0)
[2021-05-01 09:33] LABS: HCG,QUALITATIVE URINE Negative
[2021-05-01 10:02] LABS: ALBUMIN 4.1 g/dl (3.4-5.0); BLOOD UREA NITROGEN 8.1 mg/dL (7-18); CALCIUM 9.3 mg/dL (8.5-10.1)
[2021-05-01 10:05] LABS: CREATININE 0.6 mg/dL (0.55-1.3)
[2021-05-01 10:26] LABS: BILIRUBIN,TOTAL 0.6 mg/dL (0.2-1)
[2021-05-01 10:38] LABS: BASO % 0.3 % (0-2.0); EOS % 3.1 % (0-4.5); HEMATOCRIT 39.7 % (32.4-45.2); HEMOGLOBIN 12.9 GM/dL (10.7-15.3); LYMPH % 25.7 % (8-40); MCH 27.1 pg (25.7-33.7); MCHC 32.6 g/dl (32.0-36.0); MEAN CELL VOLUME 83.1 fl (80-96); MEAN PLT VOLUME 10.3 fl (7.5-11.1); MONO % 7.9 % (3.8-10.2); PLATELET COUNT 216 10^3/uL (134-434); RBC 4.77 M/mm3 (3.60-5.2); WHITE BLOOD COUNT 7.4 K/mm3 (4.0-10.0)
== END 2021-05-01 11:40 | disposition home or self-care (01) ==
LOC: JER 07:00
PROC: 3E0333Z Introduction of Anti-inflammatory into Peripheral Vein, Percutaneous Approach (ICD-10-PCS; principal; 2021-05-01)
PROC: 3E0337Z Introduction of Electrolytic and Water Balance Substance into Peripheral Vein, Percutaneous Approach (ICD-10-PCS; 2021-05-01)
DX: N83.202 Unspecified ovarian cyst, left side (principal)
CPT/HCPCS: 36415; 74177-TC; 80053; 81003; 83690; 84703; 85025; 87086; 99285-25; C9803; J0131; Q9967; U0003; U0005

== ENCOUNTER 2021-05-15 03:47 | Emergency (ER) | payer OTHER ==
[2021-05-15 03:53] VITALS: BP 108/68; PULSE 71; TEMP 97.8; BMI 28.3
[2021-05-15] MEDS ORDERED: LIDOCAINE HCL 2% (20ML MULTI-DOSE VIAL) ONE (05:20)
== END 2021-05-15 07:01 | disposition home or self-care (01) ==
LOC: JER 03:47
DX: N75.1 Abscess of Bartholin's gland (principal)
CPT/HCPCS: 99283-25

== ENCOUNTER 2021-05-19 00:17 | Emergency (ER) | payer OTHER ==
[2021-05-19 00:53] VITALS: BP 131/75; PULSE 74; TEMP 97.8; BMI 28.3
[2021-05-19] MEDS ORDERED: KETOROLAC TROMETHAMINE 15 MG/ML VIAL IM ONE (01:21)
[2021-05-19] MEDS ORDERED: LIDOCAINE HCL 2% (50ML VIAL) SQ ONE (01:38)
[2021-05-19] MEDS ORDERED: KETOROLAC TROMETHAMINE 15 MG/ML VIAL ONE (01:39)
[2021-05-19] MEDS ORDERED: LIDOCAINE HCL 2% (20ML MULTI-DOSE VIAL) ONE (01:39)
== END 2021-05-19 03:52 | disposition home or self-care (01) ==
LOC: JER 00:17
PROC: 0U9L0ZZ Drainage of Vestibular Gland, Open Approach (ICD-10-PCS; principal; 2021-05-19)
PROC: 3E0233Z Introduction of Anti-inflammatory into Muscle, Percutaneous Approach (ICD-10-PCS; 2021-05-19)
DX: N75.0 Cyst of Bartholin's gland (principal)
CPT/HCPCS: 99284-25

== ENCOUNTER 2021-10-07 07:50 | Emergency (ER) | payer OTHER ==
[2021-10-07 07:59] VITALS: BP 126/74; PULSE 81; TEMP 97.8; BMI 28.7
[2021-10-07] MEDS ORDERED: SODIUM CHLORIDE 1,000 ML IV STA (08:43)
[2021-10-07] MEDS ORDERED: ONDANSETRON 4 MG/2 ML VIAL IVPUSH ONE (08:43)
[2021-10-07] MEDS ORDERED: ACETAMINOPHEN 1000 MG/100 ML BAG IVPB ONE (08:43)
[2021-10-07] MEDS ORDERED: ACETAMINOPHEN INJECTION 100 ML IVPB ONE (08:50)
[2021-10-07] MEDS ORDERED: ONDANSETRON 4 MG/2 ML VIAL ONE (08:50)
[2021-10-07 09:34] LABS: BASO % 0.2 % (0-2.0); EOS % 2.7 % (0-4.5); HEMATOCRIT 36.3 % (32.4-45.2); HEMOGLOBIN 12.2 GM/dL (10.7-15.3); MCH 27.2 pg (25.7-33.7); MCHC 33.5 g/dl (32.0-36.0); MEAN CELL VOLUME 81.1 fl (80-96); MONO % 6.3 % (3.8-10.2); NEUT % 74.8 % (42.8-82.8); PLATELET COUNT 202 10^3/uL (134-434); RBC 4.48 M/mm3 (3.60-5.2); RDW 14.1 % (11.6-15.6); WHITE BLOOD COUNT 8.9 K/mm3 (4.0-10.0)
[2021-10-07 09:51] LABS: ALBUMIN 4.2 g/dl (3.4-5.0); BLOOD UREA NITROGEN 5.1 mg/dL (7-18); CALCIUM 9.4 mg/dL (8.5-10.1)
[2021-10-07 09:54] LABS: CREATININE 0.5 mg/dL (0.55-1.3); HCG,QUALITATIVE URINE Positive
[2021-10-07 09:56] LABS: BILIRUBIN,TOTAL 0.8 mg/dL (0.2-1); TOT PROT 7.4 g/dl (6.4-8.2); URINE APPEARANCE CLEAR; URINE BILIRUBIN NEGATIVE (NEGATIVE); URINE COLOR YELLOW; URINE GLUCOSE (UA) NEGATIVE (NEGATIVE); URINE KETONE NEGATIVE (NEGATIVE); URINE LEUK ESTERASE NEGATIVE (NEGATIVE); URINE NITRITE NEGATIVE (NEGATIVE); URINE PROTEIN NEGATIVE (NEGATIVE); URINE UROBILINOGEN 0.2 mg/dL (0.2-1.0)
== END 2021-10-07 12:06 | disposition left against medical advice (07) ==
LOC: JER 07:50
PROC: 3E033NZ Introduction of Analgesics, Hypnotics, Sedatives into Peripheral Vein, Percutaneous Approach (ICD-10-PCS; principal; 2021-10-07)
PROC: 3E033GC Introduction of Other Therapeutic Substance into Peripheral Vein, Percutaneous Approach (ICD-10-PCS; 2021-10-07)
PROC: 3E0337Z Introduction of Electrolytic and Water Balance Substance into Peripheral Vein, Percutaneous Approach (ICD-10-PCS; 2021-10-07)
DX: R10.30 Lower abdominal pain, unspecified (principal)
CPT/HCPCS: 36415; 80053; 81003; 83690; 84702; 84703; 85025; 86850; 86900; 86901; 87070; 87086; 87205; 99285-25

== ENCOUNTER 2021-10-10 08:32 | Emergency (ER) | payer OTHER ==
[2021-10-10 08:37] VITALS: TEMP 98.1; BMI 28.3
[2021-10-10] MEDS ORDERED: ACETAMINOPHEN 325 MG TABLET (FP) PO ONE (09:05)
[2021-10-10] MEDS ORDERED: ONDANSETRON *ODT* 4 MG TABLET SL ONE ×2 (09:05→09:16)
[2021-10-10] MEDS ORDERED: ACETAMINOPHEN 325 MG TABLET (FP) ONE (09:06)
[2021-10-10] MEDS ORDERED: ONDANSETRON *ODT* 4 MG TABLET ONE (09:06)
[2021-10-10 09:47] LABS: URINE APPEARANCE CLEAR; URINE BILIRUBIN NEGATIVE (NEGATIVE); URINE COLOR YELLOW; URINE GLUCOSE (UA) NEGATIVE (NEGATIVE); URINE KETONE NEGATIVE (NEGATIVE); URINE LEUK ESTERASE NEGATIVE (NEGATIVE); URINE NITRITE NEGATIVE (NEGATIVE); URINE PROTEIN NEGATIVE (NEGATIVE); URINE UROBILINOGEN 0.2 mg/dL (0.2-1.0)
[2021-10-10 12:08] VITALS: BP 135/65; PULSE 72
== END 2021-10-10 11:56 | disposition home or self-care (01) ==
LOC: JER 08:32
DX: O26.851 Spotting complicating pregnancy, first trimester (principal); Z3A.01 Less than 8 weeks gestation of pregnancy
CPT/HCPCS: 36415; 76817-TC; 81003; 84702; 84703; 87086; 99284-25; Q0162

== ENCOUNTER 2021-11-27 17:26 | Emergency (ER) | payer OTHER ==
[2021-11-27 17:47] VITALS: BP 128/60; PULSE 83; TEMP 98.7; BMI 28.8
[2021-11-27] MEDS ORDERED: NAPROXEN 500 MG TABLET PO ONE (18:42)
[2021-11-27] MEDS ORDERED: NAPROXEN 500 MG TABLET ONE (18:43)
== END 2021-11-27 18:46 | disposition home or self-care (01) ==
LOC: JER 17:26 → JERFT 17:26
DX: S80.02XA Contusion of left knee, initial encounter (principal); W22.09XA Striking against other stationary object, initial encounter
CPT/HCPCS: 73562-TC-LT-FY; 99283-25

== ENCOUNTER 2022-01-01 10:07 | Emergency (ER) | payer OTHER ==
[2022-01-01 10:16] VITALS: BP 135/87; PULSE 79; RESP 17; TEMP 99.1; BMI 29.2
[2022-01-01] MEDS ORDERED: IBUPROFEN 600 MG TABLET (FP) PO ONE (11:41)
== END 2022-01-01 12:39 | disposition home or self-care (01) ==
LOC: JERFT 10:07
DX: M79.642 Pain in left hand (principal)
CPT/HCPCS: 73610-TC-LT-FY; 73630-TC-LT; 99284-25

== ENCOUNTER 2022-12-14 02:50 | Inpatient (IN) | payer OTHER ==
[2022-12-14 02:56] VITALS: BMI 29.4
[2022-12-14] MEDS ORDERED: SODIUM CHLORIDE 2,259 ML IV ONE (03:31)
[2022-12-14] MEDS ORDERED: ACETAMINOPHEN 1000 MG/100 ML BAG IVPB ONE (03:34)
[2022-12-14] MEDS ORDERED: ACETAMINOPHEN INJECTION 100 ML IVPB ONE (04:18)
[2022-12-14 05:32] LABS: BASO % 0.2 % (0-2.0); EOS % 0.1 % (0-4.5); HEMATOCRIT 36.4 % (32.4-45.2); LYMPH % 9.2 % (8-40); MCH 26.7 pg (25.7-33.7); MCHC 32.9 g/dl (32.0-36.0); MEAN PLT VOLUME 10.2 fl (7.5-11.1); NEUT % 84.5 % (42.8-82.8); PLATELET COUNT 277 10^3/uL (134-434); RBC 4.49 M/mm3 (3.60-5.2); RDW 12.8 % (11.6-15.6); WHITE BLOOD COUNT 7.8 K/mm3 (4.0-10.0)
[2022-12-14 05:36] LABS: INR 1.2 (0.83-1.09); PROTHROMBIN TIME (PATIENT) 13.9 SEC (9.7-13.0)
[2022-12-14 05:39] LABS: ACTIVATED PTT 29.9 SECONDS (25.2-36.5)
[2022-12-14 05:41] LABS: POTASSIUM 3.9 mmol/L (3.5-5.1)
[2022-12-14 05:43] LABS: CALCIUM 9.1 mg/dL (8.5-10.1)
[2022-12-14 05:44] LABS: ALBUMIN 3.7 g/dl (3.4-5.0); BLOOD UREA NITROGEN 6.9 mg/dL (7-18)
[2022-12-14 05:47] LABS: CREATININE 0.7 mg/dL (0.55-1.3)
[2022-12-14 05:48] LABS: BILIRUBIN,TOTAL 0.4 mg/dL (0.2-1)
[2022-12-14 05:49] LABS: TOT PROT 7.3 g/dl (6.4-8.2)
[2022-12-14] MEDS ORDERED: VANCOMYCIN HCL 1,500 MG in DEXTROSE 5%-WATER - 500 ML IVPB ONE (05:53)
[2022-12-14] MEDS ORDERED: CEFTRIAXONE 2 GM/100 ML BAG IVPB ONE (06:00)
[2022-12-14] MEDS ORDERED: VANCOMYCIN PREMIX 1.5 GM 1,500 MG/300 ML BAG IVPB ONE ×2 (06:03→06:30)
[2022-12-14 06:30] LABS: URINE APPEARANCE CLEAR; URINE BILIRUBIN NEGATIVE (NEGATIVE); URINE COLOR YELLOW; URINE GLUCOSE (UA) NEGATIVE (NEGATIVE); URINE KETONE NEGATIVE (NEGATIVE); URINE LEUK ESTERASE NEGATIVE (NEGATIVE); URINE NITRITE NEGATIVE (NEGATIVE); URINE PROTEIN TRACE (NEGATIVE)
[2022-12-14 06:50] VITALS: RESP 16
[2022-12-14 13:32] VITALS: BP 124/74; PULSE 64; TEMP 98.3
[2022-12-14] MEDS ORDERED: CEFTRIAXONE 2 GM in DEXTROSE 5%-WATER 100 ML IVPB SCH ×2 (18:25→22:00)
[2022-12-14] MEDS ORDERED: VANCOMYCIN/WATER FOR INJ (PEG) 1,000 MG/200 ML BAG IVPB SCH (20:00)
[2022-12-14] MEDS ORDERED: VANCOMYCIN 1,000 MG in DEXTROSE 5%-WATER - 250 ML IVPB SCH (20:36)
== END 2022-12-14 14:21 | disposition left against medical advice (07) | DRG 50 ==
LOC: JER 02:50 → JERBED 06:17
PROVIDERS: ADMIT Internal Medicine; ATTEND Internal Medicine
PROC: 009U3ZZ Drainage of Spinal Canal, Percutaneous Approach (ICD-10-PCS; principal; 2022-12-14)
DX: G03.9 Meningitis, unspecified (principal); G93.41 Metabolic encephalopathy; R51.9 Headache, unspecified; M54.2 Cervicalgia; R53.1 Weakness; W57.XXXA Bitten or stung by nonvenomous insect and other nonvenomous arthropods, initial encounter; H53.19 Other subjective visual disturbances; Y93.9 Activity, unspecified; Y92.89 Other specified places as the place of occurrence of the external cause; Y99.9 Unspecified external cause status
CPT/HCPCS: 0241U-QW; 36415; 70450-TC; 71045-TC-FY; 80053; 81003; 82550; 83605; 84484; 84703; 85025; 85610; 85730; 86850; 86900; 86901; 87040; 87086; 87186; 93005; 93010; 99285-25

== ENCOUNTER 2023-05-17 10:52 | Emergency (ER) | payer OTHER ==
[2023-05-17 11:28] VITALS: BP 127/59; PULSE 89; RESP 17; TEMP 98.4; BMI 31.8
[2023-05-17] MEDS ORDERED: ONDANSETRON *ODT* 4 MG TABLET SL ONE (12:22)
[2023-05-17] MEDS ORDERED: ONDANSETRON 8 MG TABLET (FP) PO ONE (12:26)
== END 2023-05-17 15:27 | disposition home or self-care (01) ==
LOC: JER 10:52
DX: R11.10 Vomiting, unspecified (principal); K52.9 Noninfective gastroenteritis and colitis, unspecified; Z20.822 Contact with and (suspected) exposure to COVID-19
CPT/HCPCS: 0241U-QW; 99283-25; Q0162

== ENCOUNTER 2023-11-23 11:56 | Emergency (ER) | payer OTHER ==
[2023-11-23 12:01] VITALS: BP 125/89; PULSE 81; RESP 20; TEMP 99.3; BMI 29.5
[2023-11-23] MEDS ORDERED: ACETAMINOPHEN 500 MG TABLET (FP) ONE (12:19)
[2023-11-23] MEDS ORDERED: AMOX TR/POT CLAV 875MG/125MG TABLETS (FP) ONE (12:19)
[2023-11-23] MEDS: AMOX TR/POT CLAV 875MG/125MG TABLETS (FP) PO ONE (12:29)
[2023-11-23] MEDS: ACETAMINOPHEN 500 MG TABLET (FP) PO ONE (12:29)
[2023-11-23] MEDS ORDERED: KETOROLAC TROMETHAMINE 30 MG/1 ML VIAL ONE (13:03)
[2023-11-23] MEDS: KETOROLAC TROMETHAMINE 30 MG/1 ML VIAL IM ONE (13:11)
== END 2023-11-23 13:15 | disposition home or self-care (01) ==
LOC: JERFT 11:56
PROC: 3E0233Z Introduction of Anti-inflammatory into Muscle, Percutaneous Approach (ICD-10-PCS; principal; 2023-11-23)
DX: H66.92 Otitis media, unspecified, left ear (principal); J02.9 Acute pharyngitis, unspecified; H92.02 Otalgia, left ear
CPT/HCPCS: 84703; 99284-25

== ENCOUNTER 2024-08-06 09:32 | Emergency (ER) | payer OTHER ==
[2024-08-06 09:37] VITALS: BP 100/79; PULSE 74; RESP 20; TEMP 97.7; BMI 21.5
[2024-08-06] MEDS ORDERED: METHOCARBAMOL 500 MG TABLET ONE (10:36)
[2024-08-06] MEDS ORDERED: LIDOCAINE 4% PATCH TP ONE (10:36)
[2024-08-06] MEDS ORDERED: KETOROLAC TROMETHAMINE 30 MG/1 ML VIAL ONE (10:36)
[2024-08-06] MEDS: KETOROLAC TROMETHAMINE 30 MG/1 ML VIAL IM ONE (10:50)
[2024-08-06] MEDS: METHOCARBAMOL 500 MG TABLET PO ONE (10:50)
[2024-08-06] MEDS: LIDOCAINE 4% PATCH TP ONE (10:50)
== END 2024-08-06 11:49 | disposition home or self-care (01) ==
LOC: JERFT 09:32
PROC: 3E0233Z Introduction of Anti-inflammatory into Muscle, Percutaneous Approach (ICD-10-PCS; principal; 2024-08-06)
DX: S16.1XXA Strain of muscle, fascia and tendon at neck level, initial encounter (principal); X50.1XXA Overexertion from prolonged static or awkward postures, initial encounter
CPT/HCPCS: 99284-25

== ENCOUNTER 2025-02-01 12:44 | Emergency (ER) | payer OTHER ==
[2025-02-01 13:03] VITALS: BP 117/63; PULSE 68; RESP 18; TEMP 98.5; BMI 31.5
[2025-02-01] MEDS ORDERED: FAMOTIDINE 20 MG/50 ML IVPB 20 MG/50 ML MG IVPB ONE (14:12)
[2025-02-01] MEDS ORDERED: ONDANSETRON 4 MG/2 ML VIAL ONE (14:12)
[2025-02-01] MEDS ORDERED: ACETAMINOPHEN INJECTION 100 ML ONE (14:12)
[2025-02-01 14:21] LABS: MCHC 32.4 g/dl (32.2-35.5); MEAN CELL VOLUME 83.1 fl (79.4-94.8); MEAN PLT VOLUME 11.5 fl (9.4-12.3); RDW 12.5 % (12.1-16.5)
[2025-02-01] MEDS: SODIUM CHLORIDE 1,000 ML IV STA (14:22)
[2025-02-01] MEDS: ACETAMINOPHEN 1000 MG/100 ML BAG IVPB ONE (14:22)
[2025-02-01] MEDS: ONDANSETRON 4 MG/2 ML VIAL IVPUSH ONE (14:22)
[2025-02-01] MEDS: FAMOTIDINE 20 MG/50 ML IVPB 20 MG/50 ML MG IVPB ONE (14:50)
[2025-02-01 15:00] LABS: URINE APPEARANCE CLEAR; URINE BILIRUBIN NEGATIVE (NEGATIVE); URINE COLOR YELLOW; URINE GLUCOSE (UA) NEGATIVE (NEGATIVE); URINE KETONE NEGATIVE (NEGATIVE); URINE LEUK ESTERASE NEGATIVE (NEGATIVE); URINE NITRITE NEGATIVE (NEGATIVE); URINE PROTEIN NEGATIVE (NEGATIVE); URINE UROBILINOGEN 0.2 mg/dL (0.2-1.0)
[2025-02-01 15:03] LABS: HCG,QUALITATIVE URINE Negative
[2025-02-01 15:30] LABS: GLUCOSE,RANDOM 81.0 mg/dL (74-106); TOT PROT 8.2 g/dl (6.4-8.2)
[2025-02-01 15:31] LABS: CO2 27.0 mmol/L (21-32)
[2025-02-01 15:33] LABS: ALK PHOS 44.0 U/L (40-150)
[2025-02-01 15:36] LABS: CREATININE 0.62 mg/dL (0.55-1.3); SGOT/AST 25.0 U/L (5-34); SGPT/ALT 32.0 U/L (0-55)
[2025-02-01 16:33] LABS: HIV INTERPRETATION NEGATIVE (NEGATIVE)
[2025-02-01 16:34] LABS: HCV DIAGNOSTIC IN-HOUSE W/RFLX NON-REACTIVE (NONREACTIVE)
== END 2025-02-01 18:37 | disposition home or self-care (01) ==
LOC: JER 12:44
PROC: 3E033GC Introduction of Other Therapeutic Substance into Peripheral Vein, Percutaneous Approach (ICD-10-PCS; principal; 2025-02-01)
PROC: 3E033NZ Introduction of Analgesics, Hypnotics, Sedatives into Peripheral Vein, Percutaneous Approach (ICD-10-PCS; 2025-02-01)
PROC: 3E033GC Introduction of Other Therapeutic Substance into Peripheral Vein, Percutaneous Approach (ICD-10-PCS; 2025-02-01)
DX: K80.20 Calculus of gallbladder without cholecystitis without obstruction (principal); R11.2 Nausea with vomiting, unspecified; R19.7 Diarrhea, unspecified; K42.9 Umbilical hernia without obstruction or gangrene; R10.11 Right upper quadrant pain
CPT/HCPCS: 36415; 74177-TC; 76705-TC; 80053; 81003; 83690; 84703; 85025; 86803; 87086; 87389; 99285-25